=== PATIENT | male | born 1965 | race Caucasian/White ===

== ENCOUNTER 2019-02-06 | Emergency (ER) | payer BC, SELFPAY ==
[2019-02-06 00:01] VITALS: BP 168/100; PULSE 88; RESP 20; TEMP 36.8; O2SAT 96; BMI 31.0
[2019-02-06 00:47] VITALS: O2SAT 96
--- NOTE | 2019-02-06 00:58 | RAD_ITS ---
HISTORY: SOB EXAM: XR Chest 2 Views COMPARISON: 09/21/17 CXR FINDINGS: LINES/DEVICES: None. LUNGS: Radiographically clear. No consolidation, edema or effusion. No pneumothorax. Emphysematous changes are noted. MEDIASTINUM AND CARDIOVASCULAR STRUCTURES: Cardiac silhouette not enlarged. Central airways and mediastinal contour are unremarkable. BONES AND SOFT TISSUES: Unremarkable. RAD/Chest PA and Lateral IMPRESSION: COPD. No radiographic evidence of acute cardiopulmonary disease. at 0143 Reported and signed by: Mukund Browne MD Electronically Signed: Mukund Browne, at 1:42 EDT Tel , Service support ,
[2019-02-06 01:13] VITALS: PULSE 91; RESP 18; O2SAT 96
[2019-02-06] MEDS: Ipratropium/Albuterol Sulfate 3 ML AMPUL.NEB INHALATION (01:13)
--- NOTE | 2019-02-06 02:02 | ED.DCSUM_ITS ---
- ER Visit Summary Date of Service: 02/06/19 Chief Complaint: Shortness of breath History of Present Illness: The patient is a 53 M who presents with shortness of breath that has been constant for the past 2 weeks. Patient states he was seen in urgent care at that time and was diagnosed with bronchitis. Patient states he was given an inhaler which helps a little bit. Patient states he also has home aerosols which he has been taking with minimal relief. Patient states he feels tight in his chest. Patient states his breathing is worse at night. Patient admits to subjective fevers. Patient admits to a cough but denies any sputum. Physical Examination: Vital signs are stable. Patient is afebrile. Patient is in no acute distress. Oral mucosa is pink and moist. Neck is supple. Trachea is midline. There is no JVD noted. Heart was regular rate and rhythm. Lungs showed expiratory wheezing. There is good respiratory effort. There are no retractions noted. Abdomen is soft nontender. Cranial nerves II through XII are intact. There are no focal motor or sensory deficits noted. Test Results: PA and lateral chest x-rays obtained. There is evidence of COPD but no acute process. There is no infiltrate noted. Emergency Department Course and Treatment: Patient was given a DuoNeb aerosol here. Patient felt better on reevaluation. Patient was given a prescription for more albuterol nebulizer solution. Patient was also given a prescription for guaifenesin and dextromethorphan cough syrup. Patient was instructed to follow-up with his primary care physician in 3 to 5 days. Patient understood and was agreeable with the plan. All questions were answered. Disposition: Discharge home Impression: Acute bronchitis This note was generated with [email or web address] dictation software. It may contain incorrect words, spelling, and punctuation that were not noted in review of the chart prior to signing ED Disposition - Plan for ED Patient: Disposition: Home or Assisted Living Diagnosis: Acute bronchitis Instructions: ED Bronchitis Asthmatic Prescriptions: Albuterol Aerosols [Ventolin Aerosols] 2.5 mg INHALATION Q4H PRN #25 vial Guaifenesin/Dextromethorphan [Adult Robitussin Peak Cold Dm] 10 ml PO Q4H PRN PRN #1 bottle PRN Reason: Cough Referrals: Nick Lemons III, MD [Primary Care Provider] - 3-5 Days
[2019-02-06 02:27] VITALS: BP 143/93; PULSE 84; RESP 20; O2SAT 96
== END 2019-02-06 02:28 | disposition home or self-care (01) ==
PROVIDERS: Emergency Provider Emergency Medicine; Family Provider Family Medicine; PCP Family Medicine
DX: J20.9 Acute bronchitis, unspecified (principal); D86.9 Sarcoidosis, unspecified; I48.91 Unspecified atrial fibrillation; E03.9 Hypothyroidism, unspecified; R51 Headache; K21.9 Gastro-esophageal reflux disease without esophagitis; Z72.0 Tobacco use; Z79.899 Other long term (current) drug therapy
CPT/HCPCS: 71046; 94640; 99284; A4216

== ENCOUNTER 2020-04-15 10:29 | Emergency (ER) | payer BC, SELFPAY ==
[2020-04-15 10:31] VITALS: BP 169/93; PULSE 88; PULSE 91; RESP 16; RESP 20; TEMP 36.9; O2SAT 97; O2SAT 98; BMI 33.2
--- NOTE | 2020-04-15 10:43 | EKG12_ITS ---
Test Reason : Blood Pressure : / mmHG Vent. Rate : 088 BPM Atrial Rate : 088 BPM P-R Int : 152 ms QRS Dur : 086 ms QT Int : 358 ms P-R-T Axes : 036 010 013 degrees QTc Int : 433 ms Sinus rhythm with Premature supraventricular complexes and with occasional Premature ventricular comp lexes Otherwise normal ECG Confirmed by CHACORTA STALLWORTH, TAMIE ([id number]), scientific publications editor BONITA JEAN ([id number]) on 04/17/2020 1:09:59 PM Referred By: DISHA Confirmed By:TAMIE WHATLEY MD
--- NOTE | 2020-04-15 10:46 | ED.VIS.GEN ---
History of Present Illness Chief Complaint: Palpitations Informant: Patient Narrative: 54-year-old male with past medical history of hypertension presents with concern for palpitations. States that last weekend he was resting at home when he began having intermittent palpitations throughout the day. States that these resolved and throughout the week he was working at home around the house and in the yard. States he was doing very strenuous work. States that 2 days ago he began having the palpitations again does have an intermittent sharp chest pain. States it is nonradiating and resides over his left chest. Denies any shortness of breath, nausea, vomiting, diaphoresis. Patient states that he did have an ablation years ago for atrial fibrillation. Is not currently on blood thinning medication. Patient is a current smoker but denies any drugs or alcohol. Past Medical History - Allergies and Home Meds Allergies/Adverse Reactions: Allergies fluoxetine [From Prozac] Adverse Reaction (Verified 04/15/20 10:29) Other Primary Care Physician: Nick Lemons III, MD [Primary Care Provider] - Prior records reviewed: Yes Past Medical History: - - Hypertension Surgical History: - - Atrial ablation Lives: Spouse/ Significant Other Smoking Status: Current every day smoker Alcohol: None Drugs: None Review of Systems General: Denies: Chills, Fever, Sweats Eyes: Denies: Visual changes - bilaterally, Diplopia ENT: Denies: Rhinorrhea, Sore throat Cardiovascular: Reports: Chest pain, Palpitations Respiratory: Denies: Dyspnea, Cough, Dyspnea on exertion Gastrointestinal: Denies: Abdominal pain, Nausea, Vomiting, Diarrhea, Melena, Hematochezia Genitourinary: Denies: Dysuria, Hematuria, Frequency Musculoskeletal: Denies: Back pain, Extremity Pain Skin: Denies: Rash, Wounds Neurological: Denies: Headache, Weakness, Numbness Physical Exam Vital Signs/Narrative: Vital Signs Temp Pulse Resp BP Pulse Ox 04/15/20 10:31 98.4 F 91 16 169/93 H 97 Inital Vital Signs reviewed: Yes General: Well nourished, Well developed, No Acute Distress Head: Normocephalic, Atraumatic Eyes: Perrl, EOMI ENT: Moist mucous membranes, No rhinorrhea Neck: Supple, Nontender Cardiovascular: Regular rate, Regular rhythm, No murmurs Respiratory: No distress, CTA bilaterally, Chest nontender Abdomen: Soft, Nontender, Nondistended, Normal bowel sounds Back: Nontender, Normal Inspection Extremities: Nontender, No edema Skin: Normal color, No rash Neurological: Alert, Oriented x3, Cranial nerves II-XII grossly intact, Normal Strength, Normal Sensation Psychological: Normal affect, Normal Mood Diagnostic/Tx/Re-eval Clinical Impression(s) from Imaging Studies Chest X-Ray 04/15/20 11:10 IMPRESSION: No focal patchy airspace opacities or effusions Minimal apical capping Electronically Signed: Lyle Ca, at 11:52 EDT Tel , Service support , Laboratory Data 04/15/20 04/15/20 10:33 10:33 WBC 9.3 RBC 4.59 L Hgb 14.6 Hct 42.3 MCV 92.2 MCH 31.8 MCHC 34.5 RDW Std Deviation 40.6 RDW Coeff of Marla 12.0 Plt Count 301 MPV 9.9 Immature Gran % (Auto) 0.200 Neut % (Auto) 68.2 Lymph % (Auto) 23.7 Carlton % (Auto) 6.1 Eos % (Auto) 1.5 Baso % (Auto) 0.3 Absolute Neuts (auto) 6.3 Absolute Lymphs (auto) 2.21 Nucleated RBC % 0 Sodium 139 Potassium 3.9 Chloride 108 H Carbon Dioxide 27.0 Anion Gap 4 L BUN 13 Creatinine 1.01 Estim Creat Clear Calc 84.58 Est GFR (MDRD) Af Amer 99 Est GFR (MDRD) Non-Af 82 BUN/Creatinine Ratio 12.9 Glucose 121 H Calcium 8.8 Magnesium 2.3 Troponin I < 0.015 TSH 0.06 L - Rhythm Strip Rhythm Strip: Sinus Rhythm Rate: 88 Ectopy: PVC(s), PAC(s) - EKG Initial EKG Interpretation: Sinus Rhythm - Normal sinus rhythm at 88 bpm. NM interval of 152 ms. QTC of 433 ms. Evidence of PVCs and PACs. - Medical Decision Making Patient appears well nontoxic. Vital signs within normal limits. PVCs with 1 PAC on EKG. Troponin negative. TSH low. Patient is currently on Synthroid which is likely the cause of his current hyperthyroidism. This is likely also the cause of his palpitations. Patient was advised to decrease his Synthroid by half and follow-up with his primary care provider Dr. Lemons in the next 48 hours. I will speak with his primary care provider to ensure follow-up. Patient asked to return for any new or worsening symptoms. Patient agreeable and discharged home in stable condition. ED Disposition - Plan for ED Patient: Disposition: Home or Assisted Living Diagnosis: Hyperthyroidism Instructions: Premature Ventricular Contractions Referrals: Nick Lemons III, MD [Primary Care Provider] - Additional Instructions: Please reduce your Synthroid by half. Return for any worsening chest pain or shortness of breath.
[2020-04-15 11:03] LABS: Absolute Lymphocyte Count 2.21 X10^3/uL (0.83-4.51); Absolute Neutrophil Count 6.3 X10^3/uL (2.0-7.7); Basophil# 0.03 X10^3/uL; Basophil% 0.3 % (0-1); Eosinophil# 0.14 X10^3/uL; Eosinophils% 1.5 % (0-5); Hematocrit 42.3 % (40-54); Hemoglobin 14.6 g/dL (13.0-16.5); Lymphocyte # 2.21 X10^3/ul (4.0); Lymphocyte % 23.7 % (19-41); Mean Corp Hgb Conc 34.5 g/dL (32-36); Mean Corpuscular Hgb 31.8 pg (27.0-32.0); Mean Corpuscular Volume 92.2 fL (80-94); Mean Platelet Vol. 9.9 fl (6.2-12.0); Monocyte# 0.57 X10^3/uL; Monocyte% 6.1 % (0-10); NRBC Flagged by Analyzer 0 % (0-5); Neutrophil # 6.34 X10^3/uL (2.7-7.7); Neutrophil % 68.2 % (47-70); Platelet Count 301 K/mm3 (150-450); RBC Distribution Width SD 40.6 fl (35.1-43.9); Red Blood Count 4.59 M/mm3 (4.6-6.2); White Blood Count 9.3 K/mm3 (4.4-11.0)
--- NOTE | 2020-04-15 11:10 | RAD_ITS ---
STUDY: X-RAY CHEST REASON FOR EXAM: Male, 54 years old. chest pain with palpitations. hx of cardiac ablation TECHNIQUE: Single AP portable view of the chest. COMPARISON: February 06, 2019. FINDINGS: Cardiac silhouette unremarkable. Pulmonary vascularity unremarkable. Aorta unremarkable. No focal patchy airspace opacities. No pleural effusions. Minimal apical capping. Upper abdomen unremarkable. Osseous structures intact. No pneumothorax. RAD/Chest 1 View (Portable) IMPRESSION: No focal patchy airspace opacities or effusions Minimal apical capping Electronically Signed: Lyle Ca DO at 11:52 EDT Tel , Service support ,
[2020-04-15 11:35] LABS: Anion Gap 4 (5-15); BUN 13 mg/dL (7-18); BUN/Creat Ratio 12.9 RATIO (10-20); Calcium,Total 8.8 mg/dL (8.5-10.1); Chloride 108 mmol/L (98-107); Creatinine, Serum 1.01 mg/dL (0.70-1.30); EST Glomerular Filtration Rate 82 mL/min (>60); Est Glom Filt Rate - Afr Amer 99 mL/min (>60); Estimated Creatinine Clearance 84.58 ml/min; Glucose 121 mg/dL (74-106); Magnesium 2.3 mg/dL (1.6-2.6); Potassium 3.9 mmol/L (3.5-5.1); Sodium Level 139 mmol/L (136-145); Thyroid Stim Hormone (TSH) 0.06 uIU/mL (0.358-3.74)
[2020-04-15] MEDS: Aspirin 81 MG TAB.CHEW 324 MG PO (11:37)
[2020-04-15 12:49] VITALS: BP 148/77; PULSE 82; RESP 14; O2SAT 97
== END 2020-04-15 12:50 | disposition home or self-care (01) ==
PROVIDERS: Emergency Provider Emergency Medicine; PCP Family Medicine
DX: E05.90 Thyrotoxicosis, unspecified without thyrotoxic crisis or storm (principal); I49.3 Ventricular premature depolarization; I10 Essential (primary) hypertension; F17.200 Nicotine dependence, unspecified, uncomplicated; Z79.890 Hormone replacement therapy; Z79.899 Other long term (current) drug therapy
CPT/HCPCS: 71045; 80048; 83735; 84443; 84484; 85025; 93005; 99285; A4216

== ENCOUNTER 2021-03-19 11:26 | Emergency (ER) | payer BC, SELFPAY ==
[2021-03-19] VITALS (7 sets, daily range): BP systolic 117–158; BP diastolic 68–83; PULSE 63–78; RESP 15–19; TEMP 36.4; O2SAT 95–98; BMI 31.5
--- NOTE | 2021-03-19 11:34 | EKG12_ITS ---
Test Reason : CP Blood Pressure : / mmHG Vent. Rate : 074 BPM Atrial Rate : 074 BPM P-R Int : 160 ms QRS Dur : 078 ms QT Int : 372 ms P-R-T Axes : 052 024 027 degrees QTc Int : 412 ms Normal sinus rhythm Normal ECG Confirmed by VIJI STALLWORTH, BASILIO ([id number]), editor school photograph BONITA JEAN ([id number]) on 03/21/2021 10:42:53 A M Referred By: Confirmed By:LAURA HALLMAN MD
--- NOTE | 2021-03-19 11:45 | EDS_ITS ---
HPI History of Present Illness Chief Complaint: Chest Pain Informant: patient Onset/Context/Timing Onset: Days Activity at onset: gradual Timing: Continuous Quality: Positive for Dull Location: Left Parasternal Current Severity: Mild Maximum Severity: Mild Worsened By: Movement of Arm Relieved By: Nothing Associated Symptoms: Negative for Nausea, Vomiting, Diaphoresis, Dyspnea and Cough Narrative Narrative: 55-year-old male history of sarcoidosis prior A. fib with cardiac ablation and prior kidney stones. Is never had a DVT or PE. He has no known history of coronary disease no prior stents and is on no blood thinners. Denies any recent travel surgery or immobilization. Said Wednesday morning he awoke with but not because of left-sided chest discomfort he describes it as an achiness. Worse with movement. He denies any fever chills or cough. No hemoptysis. Prior Similar Symptoms: No Recent Illness/Hospitalization: No PE Risk Factors: Negative for Recent Travel/Surgery, Recent Immobilization, Prior DVT or PE, Cancer and OCP + Smoking + >/=35 TAD Risk Factors: Negative for Marfan's Syndrome, Hypertension and Family History [facility] Medical History (Updated 03/19/21 @ 15:[address] Shaun Hartmann MD) High cholesterol HTN (hypertension) Hypothyroid Home Medications levothyroxine 137 mcg PO DAILY 08/10/14 [History Last Taken Unknown] pravastatin 20 mg PO QHS 08/10/14 [History Last Taken Unknown] albuterol sulfate 1 - 2 puff INHALATION Q4H PRN PRN #1 inhaler 09/21/17 [Rx Last Taken Unknown] albuterol sulfate 2.5 mg INHALATION Q4H PRN #25 vial 02/06/19 [Rx Last Taken Unknown] budesonide-formoterol 1 - 2 puff INHALATION BID PRN 04/15/20 [History Last Taken Unknown] lisinopril 5 mg PO DAILY 04/15/20 [History Last Taken Unknown] Allergy/AdvReac Type Severity Reaction Status Date / Time fluoxetine [From Prozac] AdvReac Other Verified 03/19/21 11:28 Social History Smoking Status: Current every day smoker tobacco type: cigarettes ROS ROS ED ROS Narrative Patient denies any recent illness. Review of Systems ROS Unobtainable: Denies due to encephalopathy or due to endotracheal tube Constitutional Constitutional ED: Denies chills or fever(s) Eyes Eyes: Denies none ENT ENT ED: Denies ear pain or sore throat Cardiovascular Cardiovascular: Reports as per HPI and chest pain; Denies palpitations or racing heartbeat Respiratory/Chest Respiratory/Chest: Denies cough, dyspnea or sputum Gastrointestinal Gastrointestinal: Denies abdominal pain, diarrhea, nausea or vomiting Genitourinary Genitourinary ED: Denies dysuria or hematuria Musculoskeletal Musculoskeletal: Denies myalgias Integumentary Denies rash Neurologic Neurologic: Denies headache(s) Psychiatric Psychiatric: Denies depression Endocrine Endocrinology: Denies polyuria Hematologic/Lymphatic Hematologic/Lymphatic: Denies easy bruising Allergic/Immunologic Allergic/Immunologic ED: Denies urticaria EXAM Physical Exam Narrative Exam Narrative: Middle-age male no acute distress. Exam unremarkable. Lungs are clear. Heart regular rate and rhythm no murmur. Chest wall nontender. Abdomen soft nontender. Legs unremarkable. No edema or cords. Calves are nontender. Otherwise exam unremarkable. Const Vital Signs: 03/19/21 11:27 03/19/21 11:55 03/19/21 12:26 Temperature 97.5 F L Temperature Source Temporal Pulse Rate 78 66 Respiratory Rate 16 19 H Respiratory Effort Normal Non-Labored Blood Pressure 158/83 H 134/73 H Blood Pressure Mean 108 93 Pulse Ox 98 95 96 Oxygen Delivery Method Room Air Room Air Room Air 03/19/21 13:00 03/19/21 14:00 03/19/21 15:00 Temperature Temperature Source Pulse Rate 63 69 69 Respiratory Rate 19 H 16 19 H Respiratory Effort Blood Pressure 126/80 H 117/68 120/77 Blood Pressure Mean 95 84 91 Pulse Ox 95 98 97 Oxygen Delivery Method Room Air Room Air Room Air Positive well nourished and well developed General Appearance ED: well developed HEENT Reports moist mucous membranes normocephalic and atraumatic; Negative for trauma or tenderness Eyes PERRL and EOMs intact bilaterally Neck no lymphadenopathy, supple and no JVD General: Negative for tenderness Chest Wall inspection of chest normal and palpation of chest normal Resp normal respiratory effort and clear to auscultation bilaterally Effort and Inspection: respiratory distress Cardio regular rate, regular rhythm and no murmurs GI normal to inspection, nondistended, normoactive bowel sounds, soft to palpation, non-tender, non-distended and no masses Back/Spine no CVA tenderness and no thoracic nor lumbar tenderness General Back: Negative for CVA tenderness Cervical Spine: cervical spine tenderness Extremity normal to inspection General Extremety ED: Negative for edema or tenderness General Extremity: Negative for edema Neuro oriented x3 and CN's II-XII intact bilaterally Sensorium / Orientation: awake, alert, oriented to person, oriented to place and oriented to time Motor Exam: strength 5/5 throughout Psych mental status grossly normal Skin no rashes or lesions noted and no wounds Heart Score History: Slightly/Non-Suspicious ECG: Normal Age: >45 - <65 years Risk Factors: 1 or 2 Risk Factors Troponin: </= Normal Limit Score: 2 MDM MDM MDM Narrative Medical decision making narrative: Middle-age male with 3-day history of atypical, nonreproducible left-sided chest discomfort. Exam is unremarkable. No risk factors for DVT or PE no prior history. No strong cardiac risk factors other than his age and his smoking history. He will undergo cardiac work-up. Repeat exam patient is doing well at 3:30 PM. He has no reproducible pain. Is not exertional. He has no risk factors for either DVT or PE. Nor any history. Patient does not want to be admitted. He had a stress test that was -8 years ago. It was a nuclear stress test. He wants to follow-up as an outpatient. He knows to return if he is feeling worse. Lab Data Attestation: I reviewed the patient's lab results. Lab results narrative: CBC normal white count 10. Hemoglobin 14. Electrolytes normal. Normal cardiac enzymes. Normal creatinine. Chest x-ray 1 view interpreted both by myself and the radiologist shows no acute abnormality. Normal cardiac silhouette. Troponin normal. Labs: Laboratory Results - last 24 hr 03/19/21 03/19/21 11:47 11:47 WBC 10.2 RBC 4.54 L Hgb 14.5 Hct 41.2 MCV 90.7 MCH 31.9 MCHC 35.2 RDW Std Deviation 39.5 RDW Coeff of Marla 11.9 Plt Count 270 MPV 9.4 Immature Gran % (Auto) 0.200 Neut % (Auto) 65.8 Lymph % (Auto) 24.9 Mccone % (Auto) 7.2 Eos % (Auto) 1.5 Baso % (Auto) 0.4 Absolute Neuts (auto) 6.7 Absolute Lymphs (auto) 2.54 Nucleated RBC % 0 Sodium 139 Potassium 3.6 Chloride 107 Carbon Dioxide 29.0 Anion Gap 3 L BUN 14 Creatinine 1.01 Estim Creat Clear Calc 86.33 Est GFR (MDRD) Af Amer 99 Est GFR (MDRD) Non-Af 82 BUN/Creatinine Ratio 13.9 Glucose 96 Calcium 9.2 Troponin I < 0.015 Radiography Chest X-Ray - ED: Read by ED Physician, Read by Radiologist, Normal, Heart, Lungs, Mediastinum, Bony Structures and No Acute Disease Diagnostic Testing: Radiology Impression Chest X-Ray 03/19/21 11:55 IMPRESSION: Normal x-ray examination of the chest. Electronically Signed: Kurtis Lan MD at 12:24 EDT , Service support , EKG Initial EKG: Attestation: I personally reviewed and interpreted this EKG as follows: Interpretation: Sinus Rhythm Comments: Normal sinus rhythm rate of 74 unchanged from prior EKG from April of last year. No acute signs of MO nor ischemia.. Prior EKG tracings: available for review Prior: Unchanged Discharge Plan Triage Chief Complaint: Chest Pain ED Provider: Shaun Hartmann Dx/Rx/DC Orders Clinical Impression: Chest pain of uncertain etiology Instructions: ED Chest Pain, Uncertain Cause Prescriptions: No Action pravastatin 40 MG tablet 20 mg PO QHS RF: 0 levothyroxine 75 MCG tablet 137 mcg PO DAILY RF: 0 albuterol sulfate 1 INHALER inhaler 1 - 2 puff INHALATION Q4H PRN PRN (Reason: Wheezing) Qty: 1 RF: 0 albuterol sulfate 2.5 MG/3 ML solution for nebulization 2.5 mg inhalation Q4H PRN Qty: 25 RF: 0 lisinopril 5 MG tablet 5 mg PO DAILY RF: 0 budesonide-formoterol 160-4.5 mcg/actuation HFA aerosol inhaler 1 - 2 puff inhalation BID PRN (Reason: Sob &/Or Wheezing) RF: 0 Primary Care Provider: Nick Lemons III Referrals: Nick Lemons III, MD [Primary Care Provider] - Sj Bojorquez MD [STAFF PHYSICIAN] - As soon as possible Activity Restrictions/Additional Instructions: Call and follow-up with Dr. Sj Bojorquez for further evaluation. You and he can discuss potentially outpatient stress test. All your tests today were unremarkable. We do not have a specific cause for your pain. Return to emergency room if you are feeling worse such as increasing chest pain or shortness of breath. Otherwise Tylenol or Motrin for pain. Disposition Disposition: Home, self care
[2021-03-19] MEDS: Aspirin 81 MG TAB.CHEW 324 MG PO (11:46)
[2021-03-19 11:53] LABS: Absolute Lymphocyte Count 2.54 X10^3/uL (0.83-4.51); Absolute Neutrophil Count 6.7 X10^3/uL (2.0-7.7); Basophil# 0.04 X10^3/uL; Basophil% 0.4 % (0-1); Eosinophil# 0.15 X10^3/uL; Eosinophils% 1.5 % (0-5); Hematocrit 41.2 % (40-54); Hemoglobin 14.5 g/dL (13.0-16.5); Lymphocyte # 2.54 X10^3/ul (0.83-4.51); Lymphocyte % 24.9 % (19-41); Mean Corp Hgb Conc 35.2 g/dL (32-36); Mean Corpuscular Hgb 31.9 pg (27.0-32.0); Mean Corpuscular Volume 90.7 fL (80-94); Mean Platelet Vol. 9.4 fl (6.2-12.0); Monocyte# 0.73 X10^3/uL; Monocyte% 7.2 % (0-10); NRBC Flagged by Analyzer 0 % (0-5); Neutrophil # 6.71 X10^3/uL (2.7-7.7); Neutrophil % 65.8 % (47-70); Platelet Count 270 K/mm3 (150-450); RBC Distribution Width CV 11.9 % (11.6-14.6); RBC Distribution Width SD 39.5 fl (35.1-43.9); Red Blood Count 4.54 M/mm3 (4.6-6.2); White Blood Count 10.2 K/mm3 (4.4-11.0)
--- NOTE | 2021-03-19 11:55 | RAD_ITS ---
STUDY: X-RAY CHEST REASON FOR EXAM: Male, 55 years old. Chest pain TECHNIQUE: Single AP portable view of the chest. COMPARISON: Comparison is made with prior study dated 04/15/2020. FINDINGS: EKG electrodes are seen. The lungs are clear and expanded. There is no demonstrated pleural abnormality. Normal size heart. Normal mediastinum and mariam. Normal visualized pulmonary arteries. Normal visualized aortic arch and descending thoracic aorta. Normal visualized thoracic spine. Normal visualized ribs, clavicles, and shoulders. There is no demonstrated abnormality of the visualized soft tissue structures of the upper abdomen. RAD/Chest 1 View (Portable) IMPRESSION: Normal x-ray examination of the chest. Electronically Signed: Kurtis Lan MD at 12:24 EDT , Service support ,
[2021-03-19 12:14] LABS: Anion Gap 3 (5-15); BUN 14 mg/dL (7-18); BUN/Creat Ratio 13.9 RATIO (10-20); Calcium,Total 9.2 mg/dL (8.5-10.1); Chloride 107 mmol/L (98-107); Creatinine, Serum 1.01 mg/dL (0.70-1.30); EST Glomerular Filtration Rate 82 mL/min (>60); Est Glom Filt Rate - Afr Amer 99 mL/min (>60); Estimated Creatinine Clearance 86.33 ml/min; Glucose 96 mg/dL (74-106); Potassium 3.6 mmol/L (3.5-5.1); Sodium Level 139 mmol/L (136-145)
== END 2021-03-19 15:37 | disposition home or self-care (01) ==
PROVIDERS: Emergency Provider Emergency Medicine; PCP Family Medicine
DX: R07.9 Chest pain, unspecified (principal); I48.91 Unspecified atrial fibrillation; I10 Essential (primary) hypertension; E03.9 Hypothyroidism, unspecified; E78.00 Pure hypercholesterolemia, unspecified; F17.210 Nicotine dependence, cigarettes, uncomplicated; Z79.899 Other long term (current) drug therapy; Z87.442 Personal history of urinary calculi
CPT/HCPCS: 71045; 80048; 84484; 85025; 93005; 99284; A4216

== ENCOUNTER 2021-12-01 11:19 | Emergency (ER) | payer BC, SELFPAY ==
[2021-12-01 11:20] VITALS: BP 162/77; PULSE 91; RESP 16; TEMP 36.3; O2SAT 99; BMI 31.0
--- NOTE | 2021-12-01 11:41 | ED.VIS.CHEST ---
HPI History of Present Illness Chief Complaint: Chest Pain Informant: patient Onset/Context/Timing Onset: Days (3) Timing: Continuous Quality: Positive for Sharp Location: Left Chest Worsened By: Movement of Arm, Palpation, Breathing and Coughing Relieved By: Rest Associated Symptoms: Positive for Acid Reflux; Negative for Nausea, Vomiting, Diaphoresis, Dyspnea, Cough, Fever, Lightheadedness and Palpitations Narrative Narrative: Patient presents with left upper chest pain that has been constant for the past 3 days. Patient states his pain is sharp. Patient states pain is over the left chest. Patient states it is worse with coughing, sneezing, and movement of his left arm. Patient states it is better with rest. Patient denies any nausea or vomiting. Patient states he did have some heartburn when this began. Patient denies any shortness of breath or cough. Patient denies any fevers or chills. Patient denies any palpitations. CVD Risk Factors: Positive for Hypertension, Hypercholesterolemia, Family History 1' </=55 and Smoking; Negative for Diabetes PE Risk Factors: Negative for Recent Travel/Surgery, Prior DVT or PE, Cancer and OCP + Smoking + >/=35 PFSH PFSH Medical History Atrial fibrillation High cholesterol HTN (hypertension) Hypothyroid Sarcoidosis Home Medications levothyroxine 137 mcg PO DAILY 08/10/14 [History Last Taken Unknown] pravastatin 20 mg PO QHS 08/10/14 [History Last Taken Unknown] albuterol sulfate 1 - 2 puff INHALATION Q4H PRN PRN #1 inhaler 09/21/17 [Rx Last Taken Unknown] budesonide-formoterol 1 - 2 puff INHALATION BID PRN 04/15/20 [History Last Taken Unknown] lisinopril 5 mg PO DAILY 04/15/20 [History Last Taken Unknown] Allergy/AdvReac Type Severity Reaction Status Date / Time fluoxetine [From Prozac] AdvReac Other Verified 12/01/21 11:21 Surgical History History of cardiac radiofrequency ablation Hx of hernia repair Social History Smoking Status: Current every day smoker tobacco type: cigarettes and smokeless tobacco ROS ROS ED Constitutional Constitutional ED: Denies chills or fever(s) Eyes Eyes: Denies blurry vision or change in vision ENT ENT ED: Denies rhinorrhea or sore throat Cardiovascular Cardiovascular: Reports chest pain; Denies palpitations Respiratory/Chest Respiratory/Chest: Denies cough or dyspnea Gastrointestinal Gastrointestinal: Denies abdominal pain, nausea or vomiting Genitourinary Genitourinary ED: Denies dysuria or hematuria Musculoskeletal Musculoskeletal: Denies back pain or neck pain Integumentary Denies abscess or rash Neurologic Neurologic: Denies headache(s) or weakness Allergic/Immunologic Allergic/Immunologic ED: Denies mouth swelling or urticaria EXAM Physical Exam Const Vital Signs: 12/01/21 11:20 12/01/21 11:33 12/01/21 11:56 Temperature 97.4 F L Temperature Source Temporal Pulse Rate 91 Respiratory Rate 16 Respiratory Effort Normal Non-Labored Respiratory Pattern Normal Blood Pressure 162/77 H Blood Pressure Mean 105 Pulse Ox 99 Oxygen Delivery Method Room Air Room Air 12/01/21 12:19 12/01/21 13:07 12/01/21 14:23 Temperature Temperature Source Pulse Rate 73 72 Respiratory Rate 18 16 Respiratory Effort Respiratory Pattern Blood Pressure 135/84 H 139/80 H 141/80 H Blood Pressure Mean 101 99 100 Pulse Ox 97 96 98 Oxygen Delivery Method Room Air Room Air 12/01/21 15:01 Temperature Temperature Source Pulse Rate 70 Respiratory Rate 17 Respiratory Effort Respiratory Pattern Blood Pressure 150/88 H Blood Pressure Mean 108 Pulse Ox 98 Oxygen Delivery Method Room Air Positive well nourished and well developed General Appearance ED: well developed and NAD HEENT normocephalic and atraumatic Eyes PERRL and EOMs intact bilaterally Neck supple and no JVD Chest Wall palpation of chest normal Resp normal respiratory effort and clear to auscultation bilaterally Effort and Inspection: Negative for respiratory distress Cardio regular rate, regular rhythm and no murmurs GI normal to inspection, nondistended, normoactive bowel sounds, soft to palpation, non-tender and non-distended Extremity normal to inspection General Extremety ED: Negative for edema or tenderness General Extremity: Negative for edema Neuro oriented x3, CN's II-XII intact bilaterally and no sensory deficits noted Sensorium / Orientation: awake and alert Motor Exam: strength 5/5 throughout Psych mental status grossly normal Heart Score History: Slightly/Non-Suspicious ECG: Normal Age: >45 - <65 years Risk Factors: >/= 3 Risk Factors or History of CAD Troponin: </= Normal Limit Score: 3 MDM MDM MDM Narrative Medical decision making narrative: EKG was obtained. On my interpretation, it showed a normal sinus rhythm with a rate of 82. SD interval, QRS interval, and QTc intervals were all normal. [place] was normal. There are no acute ST or T wave changes. Portable 1 view chest x-ray was obtained. On my interpretation, lung warren are clear. There is normal cardiac silhouette. Bony thorax is normal. There is no acute process noted. Radiologist also interpreted the x-ray and agrees. CBC shows a mild leukocytosis of 12.5. Basic metabolic profile was within normal limits. Initial high-sensitivity troponin was normal at 5. 2-hour repeat high-sensitivity troponin was normal at 4. Patient has a HEART score of 3. Patient was advised that this is low risk for acute cardiac event. Patient was instructed to use ice to the area. Patient was instructed to take Tylenol or ibuprofen as needed for pain. Patient was instructed to follow-up with his primary care physician in 5 to 7 days. Patient understood and was agreeable with the plan. All questions were answered. Lab Data Attestation: I reviewed the patient's lab results. Labs: Laboratory Results - last 24 hr 12/01/21 12/01/21 12/01/21 11:27 11:27 14:30 WBC 12.5 H RBC 4.76 Hgb 15.7 Hct 43.1 MCV 90.5 MCH 33.0 H MCHC 36.4 H RDW Std Deviation 39.5 RDW Coeff of Marla 11.9 Plt Count 274 MPV 9.8 Immature Gran % (Auto) 0.200 Neut % (Auto) 70.6 H Lymph % (Auto) 21.9 [place] % (Auto) 6.4 Eos % (Auto) 0.6 Baso % (Auto) 0.3 Absolute Neuts (auto) 8.8 H Absolute Lymphs (auto) 2.75 Nucleated RBC % 0 Sodium 140 Potassium 3.7 Chloride 107 Carbon Dioxide 27.0 Anion Gap 6 BUN 16 Creatinine 1.03 Estim Creat Clear Calc 81.03 Est GFR (MDRD) Af Amer 96 Est GFR (MDRD) Non-Af 80 BUN/Creatinine Ratio 15.5 Glucose 107 H Calcium 9.8 Troponin I High Sens 5 4 Radiography Chest X-Ray - ED: 1 View, Read by ED Physician, Read by Radiologist and No Acute Disease Diagnostic Testing: Clinical Impression(s) from Imaging Studies Chest X-Ray 12/01/21 11:45 IMPRESSION: Hyperinflation. The lungs are clear. Electronically Signed: Kurtis Lan MD at 12:45 EST , EKG Initial EKG: Attestation: I personally reviewed and interpreted this EKG as follows: Interpretation: Sinus Rhythm (82) and No Acute Injury Pattern Discharge Plan Triage Chief Complaint: Chest Pain ED Provider: Lyle Curtis Dx/Rx/DC Orders Clinical Impression: Chest pain of uncertain etiology Instructions: ED Chest Pain, Uncertain Cause Prescriptions: No Action pravastatin 40 MG tablet 20 mg PO QHS RF: 0 levothyroxine 75 MCG tablet 137 mcg PO DAILY RF: 0 albuterol sulfate 1 INHALER inhaler 1 - 2 puff INHALATION Q4H PRN PRN (Reason: Wheezing) Qty: 1 RF: 0 lisinopril 5 MG tablet 5 mg PO DAILY RF: 0 budesonide-formoterol 160-4.5 mcg/actuation HFA aerosol inhaler 1 - 2 puff inhalation BID PRN (Reason: Sob &/Or Wheezing) RF: 0 Primary Care Provider: Care Physician,No Primary Referrals: Care Physician,No Primary [Primary Care Provider] - Doctor,Your [STAFF PHYSICIAN] - 5-7 Days Disposition Disposition: Home, Self Care
--- NOTE | 2021-12-01 11:45 | EKG12_ITS ---
Test Reason : CP Blood Pressure : / mmHG Vent. Rate : 082 BPM Atrial Rate : 082 BPM P-R Int : 140 ms QRS Dur : 080 ms QT Int : 360 ms P-R-T Axes : -40 010 010 degrees QTc Int : 420 ms Unusual P axis, possible ectopic atrial rhythm Abnormal ECG Confirmed by SAYRA STALLWORTH, NGUYEN ([id number]), associate entertainment editor BONITA JEAN ([id number]) on 12/04/2021 1:25:59 PM Referred By: VANESSA/VIDYA Confirmed By:NGUYEN COLBERT MD
--- NOTE | 2021-12-01 11:45 | RAD_ITS ---
STUDY: X-RAY CHEST REASON FOR EXAM: Male, 56 years old. Chest pain TECHNIQUE: Single AP portable view of the chest. COMPARISON: None. FINDINGS: EKG electrodes are seen. Hyperinflation. The lungs are clear. There is no demonstrated pleural abnormality. Normal size heart. Normal mediastinum and mariam. Normal visualized pulmonary arteries. Normal visualized aortic arch and descending thoracic aorta. Normal visualized thoracic spine. Normal visualized ribs, clavicles, and shoulders. There is no demonstrated abnormality of the visualized soft tissue structures of the upper abdomen. RAD/Chest 1 View (Portable) IMPRESSION: Hyperinflation. The lungs are clear. Electronically Signed: Kurtis Lan MD at 12:45 EST ,
[2021-12-01 11:59] LABS: Absolute Lymphocyte Count 2.75 X10^3/uL (0.83-4.51); Absolute Neutrophil Count 8.8 X10^3/uL (2.0-7.7); Basophil# 0.04 X10^3/uL; Basophil% 0.3 % (0-1); Eosinophil# 0.08 X10^3/uL; Eosinophils% 0.6 % (0-5); Hematocrit 43.1 % (40-54); Hemoglobin 15.7 g/dL (13.0-16.5); Lymphocyte # 2.75 X10^3/ul (0.83-4.51); Lymphocyte % 21.9 % (19-41); Mean Corp Hgb Conc 36.4 g/dL (32-36); Mean Corpuscular Volume 90.5 fL (80-94); Mean Platelet Vol. 9.8 fl (6.2-12.0); Monocyte% 6.4 % (0-10); NRBC Flagged by Analyzer 0 % (0-5); Neutrophil # 8.84 X10^3/uL (2.7-7.7); Neutrophil % 70.6 % (47-70); Platelet Count 274 K/mm3 (150-450); RBC Distribution Width CV 11.9 % (11.6-14.6); RBC Distribution Width SD 39.5 fl (35.1-43.9); Red Blood Count 4.76 M/mm3 (4.6-6.2); White Blood Count 12.5 K/mm3 (4.4-11.0)
[2021-12-01 12:07] LABS: Anion Gap 6 (5-15); BUN 16 mg/dL (7-18); BUN/Creat Ratio 15.5 RATIO (10-20); Calcium,Total 9.8 mg/dL (8.5-10.1); Chloride 107 mmol/L (98-107); Creatinine, Serum 1.03 mg/dL (0.70-1.30); EST Glomerular Filtration Rate 80 mL/min (>60); Est Glom Filt Rate - Afr Amer 96 mL/min (>60); Estimated Creatinine Clearance 81.03 ml/min; Glucose 107 mg/dL (74-106); Potassium 3.7 mmol/L (3.5-5.1); Sodium Level 140 mmol/L (136-145); Troponin-I HS 5 pg/mL (3.0-78.0)
[2021-12-01] MEDS: Aspirin 81 MG TAB.CHEW 324 MG PO (12:08)
[2021-12-01 12:19] VITALS: BP 135/84; PULSE 73; RESP 18; O2SAT 97
[2021-12-01 13:07] VITALS: BP 139/80; O2SAT 96
[2021-12-01 14:23] VITALS: BP 141/80; PULSE 72; RESP 16; O2SAT 98
[2021-12-01 14:53] LABS: Troponin-I HS 4 pg/mL (3.0-78.0)
[2021-12-01 15:01] VITALS: BP 150/88; PULSE 70; RESP 17; O2SAT 98
[2021-12-01 15:15] VITALS: BP 150/88; PULSE 72; RESP 17; O2SAT 97
== END 2021-12-01 15:21 | disposition home or self-care (01) ==
PROVIDERS: Emergency Provider Emergency Medicine; Visit Provider Emergency Medicine
DX: R07.9 Chest pain, unspecified (principal); I48.91 Unspecified atrial fibrillation; I10 Essential (primary) hypertension; F17.210 Nicotine dependence, cigarettes, uncomplicated; E78.00 Pure hypercholesterolemia, unspecified; E03.9 Hypothyroidism, unspecified; D86.9 Sarcoidosis, unspecified; Z79.899 Other long term (current) drug therapy
CPT/HCPCS: 71045; 80048; 84484; 85025; 93005; 99284; A4216

== ENCOUNTER → 2023-04-26 | Outpatient (CLI) | payer BC, SELFPAY ==
--- NOTE | 2023-04-26 11:17 | STRESSREP ---
Stress Test Report Date: 04/26/2023 Procedure: Exercise tolerance test/imaging study Indications: Chest pain Consent: Per the patient Procedure: The patient exercised on a Joo protocol for 9 minutes and 30 seconds achieving a peak heart rate of 150 bpm (91% predicted maximal heart rate) with a peak blood pressure 170/70 mmHg and a peak MET capacity of 11.6 METs. The baseline ECG demonstrated normal sinus rhythm. The peak exercise ECG demonstrated no ischemic changes. There were no cardiac dysrhythmias pretest, during exercise, or recovery. The functional capacity was considered good. There was no complaint of chest discomfort during exercise or recovery. The examination was discontinued secondary to target heart rate being achieved. The patient was injected with 11.8 mCi of technetium 99m Cardiolite and subsequently rest SPECT Cardiolite nuclear imaging was obtained in the horizontal long, vertical long, and short axis views. Post-exercise, the patient was injected with 34.1 mCi of technetium 99m Cardiolite and subsequently stress SPECT Cardiolite nuclear imaging was obtained in the horizontal long, vertical long, and short axis views. A gated Cardiolite study at peak stress was obtained. Rest and stress SPECT Cardiolite nuclear imaging status post realignment, normalization, and attenuation correction, demonstrates the appearance of relative uniform tracer uptake and myocardial perfusion appearing within normal limits. There is end systolic thickening and brightening. The gated Cardiolite study demonstrates myocardial thickening and inward wall motion. The reported LVEF is 75%. Impression: 1. Technically adequate (percent predicted maximal heart rate greater than 85%) exercise tolerance test 2. Peak exercise ECG with no ischemic changes 3. There were no cardiac dysrhythmias pretest, during exercise, or recovery 4. Rest and stress SPECT Cardiolite nuclear imaging demonstrate relative uniform tracer uptake and myocardial perfusion appearing within normal limits. 5. The gated Cardiolite study reports an LVEF of 75%. This note was generated with [employer] software. It may contain incorrect words, spelling, and punctuation that were not noted in checking the note before signing.
== END | disposition home or self-care (01) ==
LOC: CVS 06:28
PROVIDERS: PCP Family Medicine; Referring Provider Internal Medicine Cardiovascular Disease; Visit Provider Internal Medicine Cardiovascular Disease
DX: I10 Essential (primary) hypertension (principal); E03.9 Hypothyroidism, unspecified; R07.9 Chest pain, unspecified; R00.2 Palpitations
CPT/HCPCS: 78452; 93017; A9500; A4216

== ENCOUNTER → 2023-08-12 | Outpatient (CLI) | payer BC, SELFPAY ==
--- NOTE | 2023-08-12 16:57 | MRI_ITS ---
HISTORY: pain -- spinal stenosis C6-7. TECHNIQUE: Multiplanar and multisequence MR images of the cervical spine were obtained without contrast. 281 images. COMPARISON: XR 07/28/2023. FINDINGS: VERTEBRAE: Vertebral body heights maintained. Mild degenerative endplate changes of C4-5, C5-6, and C6-7. No other significant bone marrow signal abnormality. VERTEBRAL ALIGNMENT: Straightening of the cervical lordosis without anterior or posterior subluxation. SPINAL CORD: Cervical cord signal and morphology within normal limits. SOFT TISSUES: No prevertebral fluid collection. INTERVERTEBRAL DISCS: C2-3, C3-4: No significant posterior disc protrusion, central canal stenosis, or foraminal narrowing. C4-5: Very mild posterior disc bulge osteophyte complex with facet arthropathy resulting in minimal narrowing of the thecal sac and no significant foraminal narrowing . C5-6: Mild posterior disc bulge osteophyte complex with uncovertebral and facet arthropathy resulting in minimal narrowing of the thecal sac and bilateral foramina. C6-7: Mild posterior disc bulge osteophyte complex eccentric to the right with uncovertebral and facet arthropathy resulting in abutment of the right exiting and traversing nerve roots, minimal narrowing of the thecal sac, and mild right foraminal narrowing. C7-T1: Very mild posterior disc bulge osteophyte complex with no significant central canal stenosis or foraminal narrowing. MRI/Spine Cervical (Routine) IMPRESSION: Mild degenerative disc disease of the cervical spine without significant spinal canal stenosis. Mild right nerve root abutment and right foraminal narrowing at C6-7. Electronically Signed: Deborah Tapia MD at 9:49 EST ,
== END | disposition home or self-care (01) ==
PROVIDERS: PCP Family Medicine; Visit Provider Orthopaedic Surgery
DX: M48.02 Spinal stenosis, cervical region (principal)
CPT/HCPCS: 72141

== ENCOUNTER → 2024-07-26 | Outpatient (CLI) | payer BC, SELFPAY ==
--- OUTSIDE RECORDS SUMMARY | 2024-07-26 06:02 | XMS RPT_ITS | CCD ---
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) Referring Unava ilable SELMA OTERO Admitting Unavailable SELMA OTERO Attending Unavailable Mary Martínez MD Primary Care Provider Mary Martínez MD Primary Care Provider Mary Martínez MD Primary Care Provider Mary Martínez MD Primary Care Provider MARY MARTÍNEZ Primary Care Unavailable IVONNE, DMITRY Referring Unavailable MARY MARTÍNEZ Primary Care Unavailable MARY MARTÍNEZ Primary Care Unavailable IVONNE, DMITRY Referring Unavailable MARY MARTÍNEZ Primary Care Unavailable MARY MARTÍNEZ Primary Care Unavailable MARY MARTÍNEZ Attending Unavailable MARY MARTÍNEZ Primary Care Unavailable MARY MARTÍNEZ Attending Unavailable MARY MARTÍNEZ Primary Care Unavailable MARY MARTÍNEZ Attending Unavailable MAYR MARTÍNEZ Primary Care Unavailable MARY MARTÍNEZ Attending Unavailable MARY MARTÍNEZ Primary Care Unavailable NOEL LOZANO Referring Unavailable MARY MARTÍNEZ Primary Care Unavailable BROWN, YELENA Referring Unavailable STEPHANIE YELENA Attending Unavailable MARY MARTÍNEZ Primary Care Unavailable BROWN, YELENA Referring Unavailable MARY MARTÍNEZ Primary Care Unavailable ILAN BARRIOS Referring Unavailable BROWN, YELENA Attending Unavailable Cristo MIX MD, Frank A Primary Care Provider Ramya vailable Allergies Allergy Classification Reported Allergen(s) Allergy Type Date of Onset Reaction(s) Facility (20 sources) FLUoxetine; Translations: [FLUOXETINE HCL] Drug Allergy 6 Other: See Comments [facility] (20 sources) Seasonal allergy; Translations: [SEASONAL ALLERGIES] Propensity to adverse reactions (disorder) 6 Unknown [facility] Medications Current Medications Medication Drug Class(es) Dates Sig (Normalized) Sig (Original) [id number] 200 actuat albuterol 0.09 mg/actuat metered dose inhaler (20 sources) beta2-Adrenergic Agonist Start: 08-17-2023 take 2 puff(s) by inhalation every six hours as needed albuterol HFA (PROAIR HFA) 90 mcg/actuation inhaler Inhale 2 Puffs as instructed every 6 hours as needed. 8.5 g 08/17/2023 Active Start: 04-15-2021 End: 01-03-2024 take 2 puff(s) by inhalation every four hours as needed albuterol HFA (PROAIR HFA) 90 mcg/actuation inhaler Indications: Wheezing Inhale 2 Puffs as instructed every 4 hours as needed. 18 g 1 07/09/2023 01/03/2024 Discontinued Start: 01-24-2019 End: 01-03-2024 take 2.5 mg by inhalation every four hours as needed albuterol (PROVENTIL) 2.5 mg /3 mL (0.083 %) nebulizer solution Use 3 mL via nebulizer every 4 hours as needed for Wheezing/Shortness of Breath. Use over 5-15minutes. 1 Package 01/24/2019 01/03/2024 Discontinued Comment on above: Use 3 mL via nebuliz er every 4 hours as needed for Wheezing/Shortness of Breath. Use over 5-15minutes. Inhale 2 Puffs as in structed every 4 hours as needed. Inhale 2 Puffs as in structed every 6 hours as needed. Budesonide / formoterol (20 sources) Corticosteroid, beta2-Adrenergic Agonist Start: End: take 2 puff(s) by inhalation twice daily budesonide-formoter ol (SYMBICORT) 160-4.5 mcg/actuation inhaler Indications: Asthma with COPD with exacerbation (HCC) (HCC) Inhale 2 Puffs as instructed two times a day. 11 g 11 07/09/2023 07/08/2024 Active Start: 07-09-2023 End: 07-08-2024 take 2 puff(s) by inhalation twice daily budesonide-formoterol (SYMBICORT) 160-4.5 mcg/actuation inhaler Indications: Asthma with COPD with exacerbation (HCC) Inhale 2 Puffs as instructed two times a day. 11 g 11 07/09/2023 07/08/2024 Active Start: 06-01-2022 End: 07-09-2023 take 1 puff(s) by mouth twice daily SYMBICORT 160-4.5 mcg/actuation inhaler Indications: Asthma with COPD with exacerbation (HCC) INHALE 1 PUFF BY MOUTH INSTRUCTED TWICE A DAY 30.6 Each 3 06/01/2022 07/09/2023 Discontinued Start: 12-25-2020 End: 06-01-2022 take 1 puff(s) by mouth twice daily SYMBICORT 160-4.5 mcg/actuation inhaler Indications: Asthma with COPD with exacerbation (HCC) INHALE 1 PUFF BY MOUTH INSTRUCTED TWICE A DAY 30.6 g 3 12/25/2020 06/01/2022 Discontinued Comment on above: INHALE 1 PUFF BY SEGUNDO TH INSTRUCTED TWICE A DAY Inhale 2 Puffs as in structed two times a day. 24 hr buPROPion hydrochloride 300 mg extended release oral tablet (6 sources) Aminoketone Start: take 1 tablet by mouth once daily buPROPion XL (WELLBUTRIN XL) 300 mg 24 hr tablet Indications: Reactive depression , Tobacco abuse Take 1 tablet by mouth once daily. 30 tablet 1 02/04/2024 Active Start: 01-03-2024 End: 02-04-2024 take 1 tablet by mouth once daily buPROPion XL (WELLBUTRIN XL) 150 mg 24 hr tablet Indications: Reactive depression Take 1 tablet by mouth once daily. 30 tablet 5 01/03/2024 02/04/2024 Discontinued Comment on above: Take 1 tablet by segundo th once daily. celecoxib 100 mg oral capsule (3 sources) Nonsteroidal Anti-inflammatory Drug Start: End: 4 take 1 capsule by mouth twice daily celecoxib (CELEBREX) 100 mg capsule Indications: Left knee pain, unspecified chronicity , Right hip pain , Hip tendonitis, right Take 1 capsule by mouth two times a day. 60 capsule 1 07/05/2024 Active CPAP (20 sources) Start: 9 CPAP Settings 7 - 20 cm H2O, suitable mask per pt preference, chin strap, head gear, humidity, tubing, lifetime supplies. G47.33 FAIZAN 1 Device 12/29/2018 Active Start: 12-29-2018 CPAP Settings 7 - 20 cm H2O, suitable mask per pt preference, chin strap, head gear, humidity, tubing, lifetime supplies. G47.33 FAIZAN 1 Device 0 12/29/2018 Active Comment on above: Settings 7 - 20 cm H 2O, suitable mask per pt preference, chin strap, head gear, humidity, tubing, lifetime supplies. G47.33 FAIZAN gabapentin 300 mg oral capsule (10 sources) Anti-epileptic Agent Start: 4 End: 4 take 2 capsules by mouth three times daily gabapentin (NEURONTIN) 300 mg capsule Take 2 capsules by mouth three times a day for 90 days. 180 capsule 2 11/29/2023 Active Start: 09-14-2023 End: 11-29-2023 take 1 capsule by mouth three times daily gabapentin (NEURONTIN) 300 mg capsule Take 300 mg by mouth three times a day. 0 09/14/2023 11/29/2023 Discontinued Start: 10-17-2020 End: 10-08-2021 take 1 capsule by mouth three times daily gabapentin (NEURONTIN) 300 mg capsule Indications: Cervical radiculopathy , Cervicothoracic somatic dysfunction Take 1 capsule by mouth three times daily for 30 days. 90 capsule 10/17/2020 10/08/2021 Discontinued (Course of therapy completed) Comment on above: Take 2 capsules by out three times a day for 90 days. Take 300 mg by mouth three times a day. 12 hr guaiFENesin 600 mg extended release oral tablet (1 source) Start: 08-17-20 End: 08-24-20 take 1 tablet by mouth twice daily as needed guaiFENesin (MUCINEX) 600 mg 12 hr tablet Take 1 tablet by mouth two times a day as needed for cold/allergy symptoms (cough) for up to 7 days. 14 tablet 0 08/17/2023 08/24/2023 Active Comment on above: Take 1 tablet by segundo two times a day as needed for cold/allergy symptoms (cough) for up to 7 days. levothyroxine sodium 0.1 mg oral tablet (20 sources) l-Thyroxine Start: 07-09-20 End: 07-08-20 take 1 tablet by mouth once daily for thyroid dysfunction levothyroxine (SYNTHROID) 100 mcg tablet Indications: Acquired hypothyroidism Take 1 tablet by mouth once daily. Take on empty stomach. For thyroid 30 tablet 11 07/09/2023 07/08/2024 Active Start: 06-15-2023 take 1 tablet by segundo th once daily for thyroid dysfunction levothyroxine (SYNTHROID) 100 mcg tablet Indications: Acquired hypothyroidism Take 1 tablet by mouth once daily. Take on empty stomach. For thyroid 30 tablet 2 06/15/2023 Active Start: 11-30-2022 End: 06-15-2023 take 1 tablet by mouth once daily for thyroid dysfunction levothyroxine (SYNTHROID) 112 mcg tablet Indications: Acquired hypothyroidism Take 1 tablet by mouth once daily. Take on empty stomach. For thyroid 90 tablet 1 11/30/2022 06/15/2023 Discontinued Start: 08-08-2020 End: 11-30-2022 take 1 tablet by mouth once daily levothyroxine (SYNTHROID) 137 mcg tablet Indications: Acquired hypothyroidism TAKE ONE TABLET BY MOUTH DAILY FOR 6 DAYS OF THE WEEK. 77 tablet 4 11/09/2022 11/30/2022 Discontinued Comment on above: One tablet daily for 6 days of the week. TAKE ONE TABLET BY M OUT DAILY FOR 6 DAYS OF THE WEEK. Take 1 tablet by segundo th once daily. Take on empty stomach. For thyroid lisinopril 5 mg oral tablet (20 sources) Angiotensin Converting Enzyme Inhibitor Start: 08-12-2020 End: 01-03-2024 take 1 tablet by mouth once lisinopril (ZESTRIL) 5 mg tablet Take 1 tablet by mouth every afternoon. 90 tablet 3 01/03/2024 Active Comment on above: Take 1 tablet by segundo th once daily. TAKE 1 TABLET BY SEGUNDO TH EVERY DAY Take 1 tablet by segundo th every afternoon. 24 hr metoprolol succinate 25 mg extended release oral tablet (3 sources) beta-Adrenergic Lana Start: 02-01-2024 take 1 tablet by mouth every hour metoprolol succinate ER (TOPROL XL) 25 mg 24 hr tablet Take 1 tablet by mouth every afternoon. 02/01/2024 Active Nebulizer (20 sources) Start: 01-24-2019 Nebulizer NEBULIZER FOR HOME USE. DX:J40, R06.2 1 Device 01/24/2019 Active Start: 01-24-2019 Nebulizer NEBU LIZER FOR HOME USE. DX:J40, R06.2 1 Device 0 01/24/2019 Active Comment on above: NEBULIZER FOR HOME U SE. DX:J40, R06.2 pravastatin sodium 20 mg oral tablet (20 sources) HMG-CoA Reductase Inhibitor Start: 0 End: 4 take 1 tablet by mouth once daily at bedtime pravastatin (PRAVACHOL) 20 mg tablet Indications: Hyperlipidemia with target LDL less than 100 Take 1 tablet by mouth daily at bedtime. 90 tablet 3 12/20/2023 Active Comment on above: Take 1 tablet by segundo th daily at bedtime. TAKE 1 TABLET BY SEGUNDO TH EVERYDAY AT BEDTIME predniSONE 10 mg oral tablet (4 sources) Start: 3 End: 3 take 4 tablets by mouth once daily predniSONE (DELTASONE) 10 mg tablet Take 4 tablets by mouth once daily for 5 days. 20 tablet 0 08/17/2023 08/22/2023 Active Start: 06-08-2023 End: 06-17-2023 predniSONE (DELTASONE) 10 mg tablet Indications: Itching Take 4 tabs daily for 3 days, then 2 tabs daily for 3 days, then 1 tab daily for 3 days with food. 21 tablet 0 06/08/2023 06/17/2023 Active Start: 03-05-2022 End: 03-14-2022 predniSONE (DELTASONE) 10 mg tablet Indications: Olecranon bursitis of right elbow Take 4 tabs daily for 3 days, then 2 tabs daily for 3 days, then 1 tab daily for 3 days with food. 21 tablet 0 03/05/2022 03/14/2022 Active Comment on above: Take 4 tabs daily fo r 3 days, then 2 tabs daily for 3 days, then 1 tab daily for 3 days with food. Take 4 tablets by mo uth once daily for 5 days. Completed/Discontinued Medications Medication Drug Class(es) Dates Sig (Normalized) Sig (Original) cetirizine hydrochloride 10 mg oral tablet (14 sources) Histamine-1 Receptor Antagonist Start: 11-30-2022 End: 01-03-2024 take 1 tablet by mouth once daily cetirizine (ZYRTEC) 10 mg tablet Indications: Pruritus of skin Take 1 tablet by mouth once daily. 30 tablet 0 11/30/2022 01/03/2024 Discontinued Comment on above: Take 1 tablet by segundo th once daily. naproxen 500 mg oral tablet (1 source) Nonsteroidal Anti-inflammatory Drug Start: 05-16-2021 End: 10-08-2021 take 1 tablet by mouth twice daily as needed for pain naproxen (NAPROSYN) 500 mg tablet Indications: Medial epicondylitis of left elbow , Chronic pain of left knee , Instability of left knee joint Take 1 tablet by mouth twice daily as needed for pain (for pain/inflammation). Take with food. 60 tablet 1 05/16/2021 10/08/2021 Discontinued (Course of therapy completed) Problems Active Problems Problem Classification Problem Date Documented Date Episodic/Chronic Asthma (20 sources) Mild intermittent asthma; Translations: [Mild intermittent asthma, uncomplicated] Onset: 08-27-2015 08-27-2015 Chronic Chronic obstructive pulmonary disease and bronchiectasis (2 sources) Acute exacerbation of chronic obstructive airways disease with asthma; Translations: [Chronic obstructive pulmonary disease with (acute) exacerbation] Chronic Disorders of lipid metabolism (20 sources) Hyperlipidemia; Translations: [Hyperlipidemia, unspecified] Onset: 01-01-2011 08-07-2015 Chronic Esophageal disorders (20 sources) Gastro-esophageal reflux disease with esophagitis; Translations: [GERD with esophagitis] Onset: 01-06-2008 Resolved: 08-27-2015 12-27-2018 Chronic Genitourinary symptoms and ill-defined conditions (1 source) Increased frequency of urination; Translations: [Frequency of micturition] Episodic Immunity disorders (20 sources) Sarcoidosis; Translations: [Sarcoidosis, unspecified] Onset: 01-06-2008 01-06-2008 Chronic Mood disorders (20 sources) Reactive depression (situational); Translations: [Major depressive disorder, single episode, unspecified] Onset: 05-29-2009 Resolved: 08-27-2015 03-10-2016 Chronic Multiple sclerosis (2 sources) Multiple sclerosis; Translations: [Multiple sclerosis] Onset: 11-12-2023 11-12-2023 Chronic Other connective tissue disease (1 source) Bursitis of olecranon of right elbow; Translations: [Olecranon bursitis, right elbow] Episodic Other connective tissue disease (2 sources) Tendinitis of right hip; Translations: [Other specified enthesopathies of right lower limb, excluding foot] 03-13-2024 Episodic Other connective tissue disease (1 source) Medial epicondylitis of left humerus; Translations: [Medial epicondylitis, left elbow] 05-16-2021 Episodic Other inflammatory condition of skin (1 source) Itching of skin; Translations: [Pruritus, unspecified] Episodic Other inflammatory condition of skin (1 source) Itching ; Translations: [Pruritus, unspecified] 06-08-2023 Episodic Other nervous system disorders (1 source) Skin sensation disturbance; Translations: [Unspecified disturbances of skin sensation] 11-29-2023 Episodic Other nervous system disorders (1 source) Hyperreflexia; Translations: [Abnormal reflex] 11-29-2023 Episodic Other non-traumatic joint disorders (3 sources) Pain in left knee; Translations: [Pain in joint, lower leg] 03-13-2024 Episodic Other non-traumatic joint disorders (1 source) Pain in right hip joint; Translations: [Pain in right hip] 03-13-2024 Episodic Other non-traumatic joint disorders (1 source) Hip pain; Translations: [Pain in right hip] 07-05-2024 Episodic Other non-traumatic joint disorders (1 source) Instability of joint of left knee; Translations: [Other instability, left knee] 05-16-2021 Episodic Other upper respiratory infections (1 source) Viral upper respiratory tract infection; Translations: [Acute upper respiratory infection, unspecified] 08-17-2023 Episodic Residual codes; unclassified (1 source) Obstructive sleep apnea (adult) (pediatric); Translations: [Obstructive sleep apnea (adult) (pediatric)] Onset: 12-04-2018 Chronic Residual codes; unclassified (20 sources) Sleep apnea; Translations: [Sleep apnea, unspecified] Onset: 01-01-2011 12-14-2018 Chronic Residual codes; unclassified (1 source) Treatment not available; Translations: [Procedure and treatment not carried out for other reasons] Episodic Spondylosis; intervertebral disc disorders; other back problems (20 sources) Cervical arthritis; Translations: [Spondylosis without myelopathy or radiculopathy, cervical region] Onset: 04-17-2017 04-17-2017 Chronic Thyroid disorders (20 sources) Acquired hypothyroidism; Translations: [Hypothyroidism, unspecified] Onset: 08-16-2006 08-07-2015 Chronic Past or Other Problems Problem Classification Problem Date Documented Date Episodic/Chronic Abdominal pain (20 sources) Unspecified abdominal pain; Translations: [Abdominal pain] Onset: 09-16-2018 09-16-2018 Episodic Calculus of urinary tract (20 sources) Kidney stone; Translations: [Calculus of kidney] Onset: 10-02-2019 10-02-2019 Episodic Cardiac dysrhythmias (5 sources) Atrial fibrillation; Translations: [Unspecified atrial fibrillation] Onset: 08-15-2010 Resolved: 01-27-2014 01-27-2014 Chronic Essential hypertension (8 sources) Essential hypertension; Translations: [Essential (primary) hypertension] Onset: 03-19-2010 Resolved: 08-27-2015 Chronic Nonmalignant breast conditions (20 sources) Breast lump; Translations: [Unspecified lump in unspecified breast] Onset: 10-02-2019 10-02-2019 Episodic Other bone disease and musculoskeletal deformities (20 sources) Somatic dysfunction of cervicothoracic region; Translations: [Segmental and somatic dysfunction of cervical region] Onset: 07-31-2011 07-31-2011 Episodic Other circulatory disease (20 sources) H/O: atrial fibrillation; Translations: [Personal history of other diseases of the circulatory system] Onset: 01-27-2014 01-27-2014 Episodic Other diseases of veins and lymphatics (20 sources) Vascular insufficiency; Translations: [Venous insufficiency (chronic) (peripheral)] Onset: 01-05-2013 01-05-2013 Episodic Other screening for suspected conditions (not mental disorders or infectious disease) (20 sources) Encounter for screening for malignant neoplasm of colon; Translations: [Patient encounter status] Onset: 09-16-2018 09-16-2018 Episodic Residual codes; unclassified (20 sources) Tobacco user; Translations: [Tobacco use] Onset: 11-28-2012 11-28-2012 Episodic Spondylosis; intervertebral disc disorders; other back problems (20 sources) Cervical radiculopathy; Translations: [Radiculopathy, cervical region] Onset: 11-28-2012 Resolved: 08-14-2016 04-17-2017 Episodic Results Test Name Value Interpretation Reference Range Facility [facility] 03-13-2024 CNOV Office Visit ([facility] ) KEATON AGUILA ([id number]) 1965 M Date Time Provider Department 03/13/24 2:00 PM [facility] During your visit today, we recorded the following information about you: Pulse Respiration Blood pressure Weight 68/minute 18/minute 136/82 92.4 kg Mary Martínez MD 03/13/2024 2:52 PM Signed Chief Complaint Patient presents with: Pain HPI Keaton Aguila is a 58 year old male who presents here today for an acute visit. Pt here today for left knee and right hip pain. Pt reports chronic left knee pain, but worse over the past two weeks. Has cracking and popping with bending and ambulating at times. With certain movements feels his knee is unstable and could give out. Right hip pain started 1 week ago. Unsure if this is related to his knee and limping around. Pain for both areas described as a dull aching type pain. Denies any swelling in his knee. Pain at present time rated a 2/10, earlier today a 6/10. Pt had to leave work earlier today due to the increased amount of pain he was in, so he scheduled an appt. Has tried using Tylenol Arthritis and ice packs with not significant amount of relief. Tried Aleve two weeks ago, didn't notice any improvement. Denies pain improving with sitting, gets stiff after sitting for 15 minutes. Once he gets up and moves it will loosen up. Feels he more than likely has arthritis. Had x-rays left knee in 2020 which were normal. Did not see Ortho back then. Behavioral Health Screening PHQ-9 Score: 1 (Minimal Depression) Recommendation: continuing current treatment plan Past medical history, appointments, medications, allergies reviewed. Previous Medical History PAST MEDICAL HISTORY Diagnosis Date Asthma with COPD (HCC) Atrial fibrillation (HCC) ablation 03/13/13 Cervical arthritis 04/17/2017 Cervical radiculopathy 04/17/2017 Cervicothoracic somatic dysfunction 07/31/2011 Depression Elevated prostate specific antigen (PSA) Esophageal reflux Fatty liver disease, nonalcoholic Gallbladder polyp 10/2017 2 mm Hyperlipidemia LDL goal < 100 01/01/2011 Hypertension Hypothyroidism Mild intermittent asthma without complication 08/27/2015 Osteoarthrosis, unspecified whether generalized or localized, other specified sites SERONEGATIVE Other and unspecified hyperlipidemia Peripheral vascular disease (HCC) Reactive depression 03/10/2016 Sarcoidosis Sleep apnea 01/01/2011 C-PAP Unspecified asthma(493.90) Unspecified hypothyroidism Previous Surgical History PAST SURGICAL HISTORY Procedure Laterality Date CATHETER ABLATION, INTRACARDIAC 03/13/13 atrial fibrillation COLONOSCOPY FLX DX W/COLLJ SPEC WHEN PFRMD 10/10/2018 Colonoscopy ESOPHAGOGASTRODUODENOSCOPY TRANSORAL DIAGNOSTIC 10/10/2018 EGD PAST SURGICAL HISTORY OF biopsy- sarcoidosis PAST SURGICAL HISTORY OF sinus polypectomy SEPTOPLASTY 2013 with polypectomy UMBILICAL HERNIA REPAIR 5 OR OLDER 2013 Family History FAMILY HISTORY Problem Relation Age of Onset Stroke Mother Diabetes Father Lipids Father Cancer Father stomach cancer Diabetes Maternal Grandfather Diabetes Maternal Uncle None Sister Patient Allergies ALLERGIES Allergen Reactions Prozac [Fluoxetine * Other: See Comments excessive sedation Seasonal Allergies Unknown Patient does get allergy injections twice per week Current Medications Current Outpatient Medications on File Prior to Visit Medication Sig metoprolol succinate ER (TOPROL XL) 25 mg 24 hr tablet Take 1 tablet by mouth every afternoon. buPROPion XL (WELLBUTRIN XL) 300 mg 24 hr tablet Take 1 tablet by mouth once daily. lisinopril (ZESTRIL) 5 mg tablet Take 1 tablet by mouth every afternoon. pravastatin (PRAVACHOL) 20 mg tablet Take 1 tablet by mouth daily at bedtime. gabapentin (NEURONTIN) 300 mg capsule Take 2 capsules by mouth three times a day for 90 days. albuterol HFA (PROAIR HFA) 90 mcg/actuation inhaler Inhale 2 Puffs as instructed every 6 hours as needed. budesonide-formoterol (SYMBICORT) 160-4.5 mcg/actuation inhaler Inhale 2 Puffs as instructed two times a day. levothyroxine (SYNTHROID) 100 mcg tablet Take 1 tablet by mouth once daily. Take on empty stomach. For thyroid Nebulizer NEBULIZER FOR HOME USE. DX:J40, R06.2 CPAP Settings 7 - 20 cm H2O, suitable mask per pt preference, chin strap, head gear, humidity, tubing, lifetime supplies. G47.33 FAIZAN No current facility-administered medications on file prior to visit. Social History Social History Tobacco Use Smoking status: Every Day Packs/day: 0.20 Years: 20.00 Additional pack years: 0.00 Total pack years: 4.00 Types: Cigarettes Last attempt to quit: 12/08/2012 Years since quittin.2 Smokeless tobacco: Current Types: Chew Vaping Use Vaping Use: Never used Substance Use Topics Alcohol use: Not (more content not included)... Normal [facility] 02-25-2024 CNOV Office Visit (FAMPWS ) KEATON AGUILA ([id number]) 1965 M Date Time Provider Department 02/25/24 4:20 PM [facility] During your visit today, we recorded the following information about you: Pulse Respiration Blood pressure Weight 70/minute 16/minute 130/80 91.7 kg Mary Martínez MD 02/25/2024 4:43 PM Signed Chief Complaint Patient presents with: F/U 1 month HPI Keaton Aguila is a 58 year old male who presents here today for 1 month follow up. Here for 1 month follow up on depression. Wellbutrin ws increased last visit to 300 mg daily. He feels this is working well for him at this time. His sleeping patterns are a little better, rather than getting up every 1 hour he is able to sleep a little longer. He has not had any negative issues with the increased Wellbutrin. 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 Started getting allergy shots again. Past medical history, appointments, medications, allergies reviewed. Previous Medical History PAST MEDICAL HISTORY Diagnosis Date Asthma with COPD (HCC) Atrial fibrillation (HCC) ablation 03/13/13 Cervical arthritis 04/17/2017 Cervical radiculopathy 04/17/2017 Cervicothoracic somatic dysfunction 07/31/2011 Depression Elevated prostate specific antigen (PSA) Esophageal reflux Fatty liver disease, nonalcoholic Gallbladder polyp 10/2017 2 mm Hyperlipidemia LDL goal < 100 01/01/2011 Hypertension Hypothyroidism Mild intermittent asthma without complication 08/27/2015 Osteoarthrosis, unspecified whether generalized or localized, other specified sites SERONEGATIVE Other and unspecified hyperlipidemia Peripheral vascular disease (HCC) Reactive depression 03/10/2016 Sarcoidosis Sleep apnea 01/01/2011 C-PAP Unspecified asthma(493.90) Unspecified hypothyroidism Previous Surgical History PAST SURGICAL HISTORY Procedure Laterality Date CATHETER ABLATION, INTRACARDIAC 03/13/13 atrial fibrillation COLONOSCOPY FLX DX W/COLLJ SPEC WHEN PFRMD 10/10/2018 Colonoscopy ESOPHAGOGASTRODUODENOSCOPY TRANSORAL DIAGNOSTIC 10/10/2018 EGD PAST SURGICAL HISTORY OF biopsy- sarcoidosis PAST SURGICAL HISTORY OF sinus polypectomy SEPTOPLASTY 2013 with polypectomy UMBILICAL HERNIA REPAIR 5 OR OLDER 2013 Family History FAMILY HISTORY Problem Relation Age of Onset Stroke Mother Diabetes Father Lipids Father Cancer Father stomach cancer Diabetes Maternal Grandfather Diabetes Maternal Uncle None Sister Patient Allergies ALLERGIES Allergen Reactions Prozac [Fluoxetine * Other: See Comments excessive sedation Seasonal Allergies Unknown Patient does get allergy injections twice per week Current Medications Current Outpatient Medications on File Prior to Visit Medication Sig buPROPion XL (WELLBUTRIN XL) 300 mg 24 hr tablet Take 1 tablet by mouth once daily. lisinopril (ZESTRIL) 5 mg tablet Take 1 tablet by mouth every afternoon. pravastatin (PRAVACHOL) 20 mg tablet Take 1 tablet by mouth daily at bedtime. gabapentin (NEURONTIN) 300 mg capsule Take 2 capsules by mouth three times a day for 90 days. albuterol HFA (PROAIR HFA) 90 mcg/actuation inhaler Inhale 2 Puffs as instructed every 6 hours as needed. budesonide-formoterol (SYMBICORT) 160-4.5 mcg/actuation inhaler Inhale 2 Puffs as instructed two times a day. levothyroxine (SYNTHROID) 100 mcg tablet Take 1 tablet by mouth once daily. Take on empty stomach. For thyroid Nebulizer NEBULIZER FOR HOME USE. DX:J40, R06.2 CPAP Settings 7 - 20 cm H2O, suitable mask per pt preference, chin strap, head gear, humidity, tubing, lifetime supplies. G47.33 FAIZAN No current facility-administered medications on file prior to visit. Social History Social History Tobacco Use Smoking status: Every Day Packs/day: 0.20 Years: 20.00 Additional pack years: 0.00 Total pack years: 4.00 Types: Cigarettes Last attempt to quit: 12/08/2012 Years since quittin.2 Smokeless tobacco: Current Types: Chew Vaping Use Vaping Use: Never used Substance Use Topics Alcohol use: Not Currently Comment: Beer on weekends Drug use: No EXAM: BP 130/80 Pulse 70 Resp 16 Wt 91.7 kg (202 lb 3.2 oz) BMI 29.43 kg/m? General Appearance: Well appearing, alert, in no acute distress, well-hydrated, well nourished.. Lungs: Lungs clear to auscultation. No wheezing, rhonchi, rales.. Heart: RRR without murmur, gallop, or rubs. No ectopy. Health Maintenance List Spirometry Never done Shingrix Vaccine(1 of 2) Never done BP Controlled (<130/80) due on 03/10/2020 Colorectal Cancer Screening due on 10/10/2023 Hepatitis C Screening due on 01/02/2025 HIV Screening due on 01/02/2025 Covid-19 Vaccine( seaso (more content not included)... Normal [facility] CNOVon 02-04-2024 CNOV Office Visit (FAMPWS ) KEATON AGUILA ([id number]) 1965 M Date Time Provider Department 02/04/24 4:20 PM MARY MARTÍNEZ FAMPWS During your visit today, we recorded the following information about you: Pulse Respiration Blood pressure Weight 72/minute 16/minute 130/74 93.8 kg Mary Martínez MD 02/04/2024 4:21 PM Signed Chief Complaint Patient presents with: F/U 1 month HPI Keaton Aguila is a 58 year old male who presents here today for 1 month follow up. Here for a 1 month follow up on medication. PHQ score was 11. Was started on Wellbutrin 150 mg daily last visit due to increased stress due to his job. Denies noticing any change with use of medication. Hasn't noticed any change in his sleeping habit, still waking up every couple hours. Gets intrusive thoughts while at work where he feels he wants to snap, but doesn't and waits til he gets home. Will talk to his and snap some at her. She does notice he seems more snappy . Does feel the weather has helped some. Tends to get worse during the winter months, but better when the suns shining. Today was a good day, was off work and was outside all day. Denies symptoms getting any worse. No decreased smoking either with use of medication. Is tolerating medication well, denies making him feel any more tired. Past medical history, appointments, medications, allergies reviewed. Previous Medical History PAST MEDICAL HISTORY Diagnosis Date Asthma with COPD (HCC) Atrial fibrillation (HCC) ablation 03/13/13 Cervical arthritis 04/17/2017 Cervical radiculopathy 04/17/2017 Cervicothoracic somatic dysfunction 07/31/2011 Depression Elevated prostate specific antigen (PSA) Esophageal reflux Fatty liver disease, nonalcoholic Gallbladder polyp 10/2017 2 mm Hyperlipidemia LDL goal < 100 01/01/2011 Hypertension Hypothyroidism Mild intermittent asthma without complication 08/27/2015 Osteoarthrosis, unspecified whether generalized or localized, other specified sites SERONEGATIVE Other and unspecified hyperlipidemia Peripheral vascular disease (HCC) Reactive depression 03/10/2016 Sarcoidosis Sleep apnea 01/01/2011 C-PAP Unspecified asthma(493.90) Unspecified hypothyroidism Previous Surgical History PAST SURGICAL HISTORY Procedure Laterality Date CATHETER ABLATION, INTRACARDIAC 03/13/13 atrial fibrillation COLONOSCOPY FLX DX W/COLLJ SPEC WHEN PFRMD 10/10/2018 Colonoscopy ESOPHAGOGASTRODUODENOSCOPY TRANSORAL DIAGNOSTIC 10/10/2018 EGD PAST SURGICAL HISTORY OF biopsy- sarcoidosis PAST SURGICAL HISTORY OF sinus polypectomy SEPTOPLASTY 2013 with polypectomy UMBILICAL HERNIA REPAIR 5 OR OLDER 2013 Family History FAMILY HISTORY Problem Relation Age of Onset Stroke Mother Diabetes Father Lipids Father Cancer Father stomach cancer Diabetes Maternal Grandfather Diabetes Maternal Uncle None Sister Patient Allergies ALLERGIES Allergen Reactions Prozac [Fluoxetine * Other: See Comments excessive sedation Seasonal Allergies Unknown Patient does get allergy injections twice per week Current Medications Current Outpatient Medications on File Prior to Visit Medication Sig lisinopril (ZESTRIL) 5 mg tablet Take 1 tablet by mouth every afternoon. buPROPion XL (WELLBUTRIN XL) 150 mg 24 hr tablet Take 1 tablet by mouth once daily. pravastatin (PRAVACHOL) 20 mg tablet Take 1 tablet by mouth daily at bedtime. gabapentin (NEURONTIN) 300 mg capsule Take 2 capsules by mouth three times a day for 90 days. albuterol HFA (PROAIR HFA) 90 mcg/actuation inhaler Inhale 2 Puffs as instructed every 6 hours as needed. budesonide-formoterol (SYMBICORT) 160-4.5 mcg/actuation inhaler Inhale 2 Puffs as instructed two times a day. levothyroxine (SYNTHROID) 100 mcg tablet Take 1 tablet by mouth once daily. Take on empty stomach. For thyroid Nebulizer NEBULIZER FOR HOME USE. DX:J40, R06.2 CPAP Settings 7 - 20 cm H2O, suitable mask per pt preference, chin strap, head gear, humidity, tubing, lifetime supplies. G47.33 FAIZAN No current facility-administered medications on file prior to visit. Social History Social History Tobacco Use Smoking status: Every Day Packs/day: 0.20 Years: 20.00 Additional pack years: 0.00 Total pack years: 4.00 Types: Cigarettes Last attempt to quit: 12/08/2012 Years since quittin.1 Smokeless tobacco: Current Types: Chew Vaping Use Vaping Use: Never used Substance Use Topics Alcohol use: Not Currently Comment: Beer on weekends Drug use: No EXAM: BP 130/74 (BP Site: Left Arm, BP Position: Sitting, BP Cuff Size: Regular Adult) Pulse 72 Resp 16 Wt 93.8 kg (206 lb 12.8 oz) BMI 30.10 kg/m? General Appearance: Well appearing, alert, in no acute distress, well-hydrated, well nourished. and Overweight. Lungs: Lungs clear to auscultation. No wheezing, (more content not included)... Normal [facility] CNOVon 01-03-2024 CNOV Office Visit (FAMPWS ) KEATON AGUILA ([id number]) 1965 M Date Time Provider Department 01/03/24 5:00 PM [facility] your visit today, we recorded the following information about you: Pulse Respiration Blood pressure Weight 64/minute 16/minute 132/84 95.5 kg Height 1.765 m Mary Martínez MD 01/03/2024 6:18 PM Signed Chief Complaint Follow up HPI Keaton Aguila is a 58 year old male who presents here today for follow up Here today for routine Wellness. Had labs done in November through work. He says his cholesterol was better than it had ever been. No bowel, Gi, or urinary concerns. Due for 5 year colonoscopy; tubular adenoma removed in 2019. He will schedule this. Smoking - Currently smoking 1 pack every 3 days and 1 can of chew almost a week. Feels this is related to increased stress. Really wants to quit, but feels he's not able to, with his increased stress. HTN: Taking Lisinopril 5 mg daily. Denies checking BP at home. No chest pains, dizziness, or SOB. Is following with Dr. Bray at [facility]. Was seen by them in July, has f/u next month. Lipid: Taking Pravastatin 20 mg daily. Tolerating well. Tries to watch diet, states that he's lost 6 lbs. Eating less red meat, lots of vegetables. No formal exercise but stays very active at work. Allergies/Asthma: Breathing is doing excellent at this time. Uses Albuterol inhaler prn, Symbicort inhaler 2 puffs BID prn, and has Nebulizer to use prn. Will start receiving his allergy shots tomorrow once weekly at [facility]. Thyroid: Taking Synthroid 100 mcg daily. No missed dosages. FAIZAN: Uses CPAP at 7-20 cm of water. Can't go without his CPAP. Receives supplies through [employer]. Pain: Follows with Physical Medicine for Cervical radiculopathy. Is taking Gabapentin 300 mg 2 pills TID prn. Pt completed Depression questionnaire through [employer]. PHQ-9 score is 14. PHQ-2 score is 2. Currently on no medications at this time. Pt has dx of depression. Pt at this time states he's not depressed and is more stressed due to his work. Has a high stress job, has worked there for 35 years. Has been able to deal with this generally, hoping this improves. He is not interested in counseling. Tried Prozac years ago but fell asleep driving after 2 days on it. HM - Declines Hep C/HIV screening. Declines Covid vaccine. Past medical history, appointments, medications, allergies reviewed. Previous Medical History PAST MEDICAL HISTORY Diagnosis Date Asthma with COPD Atrial fibrillation (HCC) ablation 03/13/13 Cervical arthritis 04/17/2017 Cervical radiculopathy 04/17/2017 Cervicothoracic somatic dysfunction 07/31/2011 Depression Elevated prostate specific antigen (PSA) Esophageal reflux Fatty liver disease, nonalcoholic Gallbladder polyp 10/2017 2 mm Hyperlipidemia LDL goal < 100 01/01/2011 Hypertension Hypothyroidism Mild intermittent asthma without complication 08/27/2015 Osteoarthrosis, unspecified whether generalized or localized, other specified sites SERONEGATIVE Other and unspecified hyperlipidemia Peripheral vascular disease (HCC) Reactive depression 03/10/2016 Sarcoidosis Sleep apnea 01/01/2011 C-PAP Unspecified asthma(493.90) Unspecified hypothyroidism Previous Surgical History PAST SURGICAL HISTORY Procedure Laterality Date CATHETER ABLATION, INTRACARDIAC 03/13/13 atrial fibrillation COLONOSCOPY FLX DX W/COLLJ SPEC WHEN PFRMD 10/10/2018 Colonoscopy ESOPHAGOGASTRODUODENOSCOPY TRANSORAL DIAGNOSTIC 10/10/2018 EGD PAST SURGICAL HISTORY OF biopsy- sarcoidosis PAST SURGICAL HISTORY OF sinus polypectomy SEPTOPLASTY 2014 with polypectomy UMBILICAL HERNIA REPAIR 5 OR OLDER 2013 Family History FAMILY HISTORY Problem Relation Age of Onset Stroke Mother Diabetes Father Lipids Father Cancer Father stomach cancer Diabetes Maternal Grandfather Diabetes Maternal Uncle None Sister Patient Allergies ALLERGIES Allergen Reactions Prozac [Fluoxetine * Other: See Comments excessive sedation Seasonal Allergies Unknown Patient does get allergy injections twice per week Current Medications Current Outpatient Medications on File Prior to Visit Medication Sig pravastatin (PRAVACHOL) 20 mg tablet Take 1 tablet by mouth daily at bedtime. lisinopril (ZESTRIL) 5 mg tablet take 1 tablet by mouth every day gabapentin (NEURONTIN) 300 mg capsule Take 2 capsules by mouth three times a day for 90 days. albuterol HFA (PROAIR HFA) 90 mcg/actuation inhaler Inhale 2 Puffs as instructed every 6 hours as needed. budesonide-formoterol (SYMBICORT) 160-4.5 mcg/actuation inhaler Inhale 2 Puffs as instructed two times a day. levothyroxine (SYNTHROID) 100 mcg tablet Take 1 tablet by mouth once daily. Take on empty stomach. For thyroid albuterol HFA (PROAIR HFA) 90 mcg/actuation (more content not included)... Normal [facility] Prostate specific Ag [Mass/Vol] 1.46 ng/mL Normal <2.60 [facility] Comment on above: Order Comment: Speci men Type: BLOOD SPECIMENOrdering Facility: [facility] Address: [address] [place] [address] Result Comment: Naeem chan PSA test methodology used is the Electrochemiluminescence Immunoassay by [employer]. Total PSA values by differing methodologies cannot be interchanged. Performed By: #### 2 857-1 ####[facility] LABCLIA [id number] [place] [address] [place] MR Brain WO contraston 11-12 [facility] MRI BRAIN WO IVCONon 024 MRI BRAIN WO IVCON * * *Final Report* * * DATE OF EXAM: Nov 12 2023 2:42PM [facility] 0294 - MRI BRAIN WO IVCON / PROCEDURE REASON: Multiple sclerosis (HCC) * * * * Physician Interpretation * * * * MRI BRAIN WO IVCON HISTORY: Multiple sclerosis (HCC) TECHNIQUE: Routine noncontrast MRI protocol including diffusion images. MQ: [id number] COMPARISON: MRI cervical spine from outside institution 08/12/2023. RESULT: Acute Change: There is no evidence of restricted diffusion to suggest an acute infarct. Hemorrhage: No evidence of prior parenchymal hemorrhage on the gradient echo images. Mass Lesion/ Mass Effect: No evidence of an intracranial mass or extra-axial fluid collection. No significant mass effect. Chronic Change: A few punctate foci of T2/FLAIR hyperintense signal abnormality are present in the supratentorial white matter including a right periventricular focus on image 24 series 2, nonspecific. No focal lesions in the corpus callosum or callososeptal junction. Parenchyma: No significant volume loss for age. The brain parenchyma is otherwise within normal limits of signal intensity and morphology. Ventricles: Normal caliber and morphology. Skull Base: Hypothalamic and pituitary region are grossly normal. Craniocervical junction is normal. No significant marrow replacement process. Vasculature: Major intracranial arterial structures, and dural venous sinuses show typical flow void, suggesting patency by spin echo criteria. Other: Bilateral mastoid effusions. Paranasal sinus mucosal thickening. IMPRESSION: No evidence of an acute intracranial process. Minimal white matter hyperintensities which are nonspecific. Bilateral mastoid effusion. Electrocardiograph Technician: LENKA Transcribe Date/Time: Nov 12 2023 3:33P Dictated by : RODERICK CARBAJAL MD This examination was interpreted and the report reviewed and electronically signed by: RODERICK CARBAJAL MD on Nov 12 2023 3:36PM EST [id number] Normal [facility] CNOVon 10-18-2023 CNOV Office Visit (SPNMED ) KEATON AGUILA ([id number]) 1965 M Date Time Provider Department 10/18/23 3:40 PM YELENA BROWN SPNMED During your visit today, we recorded the following information about you: Pulse Blood pressure Weight 75/minute 159/87 96.6 kg Yelena Brown DO 10/19/2023 8:44 AM Signed [facility] Neck Pain - Chronic (> 12 weeks) Initial Exam SUBJECTIVE HISTORY OF PRESENT ILLNESS: Keaton Aguila is a 58 year old male who presents with a chief complaint of neck pain Chronic neck pain many years. Saw a spine doctor who checked reflexes recommended come here..numbness in arm R>L Worse: sitting at computer, driving. Night trouble getting comfortable. H/o Pruritus in arms, thought was due to pinched nerve. Last episode 06/2022. Also feeling of RLS in lower neck/upper back. Right leg feels like it wants to run on its own constantly. Blurred vision in right eye. Possibly some problems with balance over the last year. H/o injection 10 years ago. No clear relief Chiro helps for 1-2 days. None for 4 years. PT pre-covid did not help. PAIN EVALUATION 10/12/2023 1419 10/18/2023 1524 Pain Level: 3 2 Pain Location: Shoulder-Right -- upper back Description: Dull;Itching;Numbness;Radiat ing;Sharp;Stiffness Aching;Numbness Duration Amount of Time: 24 -- Duration Units: -- Years Frequency: Continuous Continuous Intervention/Comfort measure: Cold;Exercise;Massage;Positi oning -- Comments: The pain varies from numb-not much pain to sharp persistent aching pain that can usually go up to 7 on the pain scale -- Litigation: No Workers' Compensation: No YELLOW AND BLUE FLAGS No-Neg Attitude; Back Pain is Disabling No-Avoiding Activity (for Fear of Pain) No-Depression or Anxiety Disorders No-Social Problems No-Substance Use Disorder No-Job Dissatisfaction No-Financial Disincentives Patient Entered Questionnaires Spine Questions 10/12/2023 Pain Location: Upper back/torso Pain Duration: More than 5 years Pain over last 6 months: Every day or nearly every day in the past 6 months Symptoms from neck/cervical spine: Yes Employment Status: Working now Involved in law suit/legal claim: No Spine Red Flags 10/12/2023 Any type of cancer: No Unexplained fever: No Bowel or bladder disfunction: No Unintentional weight loss: No Osteoporosis: No Neck Questionnaires 10/12/2023 Benzel Modified ILAN Score 16 (A lower score indicates increased pain and issues.) PROMIS Score Percentiles Physical Health 01/15/2020 02/27/2020 10/12/2023 Physical Function Percentile 18* 42 27* Sleep Percentile - - 14 Fatigue Percentile 18* 10 10 Pain Interference Percentile 4 - 12 PROMIS SOCIAL ROLE SCORE 01/15/2020 02/27/2020 10/12/2023 Social Role Satisfaction Percentile 10 24* 10 PROMIS Global Health Scale 10/02/2021 11/26/2022 10/12/2023 Physical Health Percentile 31 41 31 Mental Health Percentile 43 26* 34 Percentiles provide an indication of how the patient's score ranks in relation to the general population. Higher percentile rankings indicate better function/quality of life. 50th percentile is the average of the general population and indicates half of respondents had a worse score. Depression Screening: PHQ-9 05/16/2021 11/26/2022 10/12/2023 Score 14 3 9 PHQ-9 Self Harm 05/16/2021 11/26/2022 10/12/2023 Question 9 Not at all Not at all Not at all PHQ-9 Self-Harm (Item 9) response options: 0 Not at all 1 Several days 2 More than half the days 3 Nearly every day PHQ-9 Levels: 0-4 No - mild depression 5-9 Mild depression 10-14 Moderate depression 15-19 Moderately severe depression 20-27 Severe depression ACTIVE PROBLEM LIST Acquired Hypothyroidism Sarcoidosis Sleep Apnea Hyperlipidemia With Target Ldl Less Than 100 Cervicothoracic Somatic Dysfunction Tobacco Abuse Venous Insufficiency History of Atrial Fibrillation Without Current Medication Mild Intermittent Asthma Without Complication Reactive Depression Cervical Radiculopathy Cervical Arthritis Screening for Colon Cancer Abdominal Pain Gerd With Esophagitis Renal Stone Breast Mass in Male PAST MEDICAL HISTORY Diagnosis Date Asthma with COPD Atrial fibrillation (HCC) ablation 03/13/13 Cervical arthritis 04/17/2017 Cervical radiculopathy 04/17/2017 Cervicothoracic somatic dysfunction 07/31/2011 Depression Elevated prostate specific antigen (PSA) Esophageal reflux Fatty liver disease, nonalcoholic Gallbladder polyp 10/2017 2 mm Hyperlipidemia LDL goal < 100 01/01/2011 Hypertension Hypothyroidism Mild intermittent asthma without complication 08/27/2015 Osteoarthrosis, unspecified whether generalized or localized, other specified sites SERONEGATIVE Other and unspecified hyperlipidemia Peripheral vascular disease (HCC) Reactive depression 03/10/2016 Sarcoidosis 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 Normal [facility] CNPElizabeth 10-11-2023 CNPN Telephone (FAMPWS) KEATON AGUILA ([id number]) 1965 M Date Time Provider Department 10/11/23 DMITRY CORONADO During your visit today, we recorded the following information about you: Dmitry Coronado APRN.CNP 10/11/2023 8:18 AM Signed Please let the patient know that his TSH has returned to normal range. Continue with current dose levothyroxine. CANDIDO Lyons Brittany L, MA 10/11/2023 9:50 AM Signed Patient active MyChart. Patient notified via LEYIO message. Tyson Rudolph MA Allergies As of Date: 10/11/2023 Noted Allergy Reaction PROZAC (FLUOXETINE HCL) 03/10/2016 14 - Other: See Comments Comments: excessive sedation SEASONAL ALLERGIES 08/14/2016 16 - Unknown Comments: Patient does get allergy injections twice per week Date Reviewed: 08/17/2023 Reviewed by: Hayder Santacruz APRN.CNP - Fully Assessed Reason for Visit: Results [95] Prescriptions as of 10/11/2023 - albuterol HFA (PROAIR HFA) 90 mcg/actuation inhaler Inhale 2 Puffs as instructed every 6 hours as needed. - budesonide-formoterol (SYMBICORT) 160-4.5 mcg/actuation inhaler Inhale 2 Puffs as instructed two times a day. - levothyroxine (SYNTHROID) 100 mcg tablet Take 1 tablet by mouth once daily. Take on empty stomach. For thyroid - albuterol HFA (PROAIR HFA) 90 mcg/actuation inhaler Inhale 2 Puffs as instructed every 4 hours as needed. - cetirizine (ZYRTEC) 10 mg tablet Take 1 tablet by mouth once daily. - pravastatin (PRAVACHOL) 20 mg tablet TAKE 1 TABLET BY MOUTH EVERYDAY AT BEDTIME - lisinopril (ZESTRIL, PRINIVIL) 5 mg tablet TAKE 1 TABLET BY MOUTH EVERY DAY - albuterol (PROVENTIL) 2.5 mg /3 mL (0.083 %) nebulizer solution Use 3 mL via nebulizer every 4 hours as needed for Wheezing/Shortness of Breath. Use over 5-15minutes. - Nebulizer NEBULIZER FOR HOME USE. DX:J40, R06.2 - CPAP Settings 7 - 20 cm H2O, suitable mask per pt preference, chin strap, head gear, humidity, tubing, lifetime supplies. G47.33 FAIZAN Problem List As Of Date 10/11/2023 Noted Resolved Acquired hypothyroidism [E03.9] 08/16/2006 Esophageal reflux [K21.9] 01/06/2008 08/27/2015 SARCOIDOSIS [D86.9] 01/06/2008 Depression [F32.A] 05/29/2009 08/27/2015 Essential Hypertension, Benign [I10] 03/19/2010 08/27/2015 Atrial fibrillation (HCC) [I48.91] 08/15/2010 01/27/2014 Sleep apnea [G47.30] 01/01/2011 Hyperlipidemia with target LDL less than 100 [E*01/01/2011 Cervicothoracic somatic dysfunction [M99.01] 07/31/2011 Thoracic back pain [M54.6] 11/28/2012 08/14/2016 Tobacco abuse [Z72.0] 11/28/2012 Venous insufficiency [I87.2] 01/05/2013 History of atrial fibrillation without current *01/27/2014 Mild intermittent asthma without complication [*08/27/2015 Reactive depression [F32.9] 03/10/2016 Cervical radiculopathy [M54.12] 04/17/2017 Cervical arthritis (HCC) [M47.812] 04/17/2017 Screening for colon cancer [Z12.11] 09/16/2018 Abdominal pain [R10.9] 09/16/2018 GERD with esophagitis [K21.00] 12/27/2018 Renal stone [N20.0] 10/02/2019 Breast mass in male [N63.0] 10/02/2019 Encounter Status:Closed by TYSON RUDOLPH on 10/11/23 Normal [facility] TSH SerPl-aCncon 10-09-2023 TSH Qn 0.940 m[IU]/L Normal 0.270-4.200 [facility] Comment on above: Order Comment: Speci men Type: BLOOD SPECIMENOrdering Facility: [facility] Address: [address] [place] [address] Performed By: #### 3 016-3 ####[facility] LABCLWILBUR [id number] [address] [place] [id number] [id number] [facility] CNOVon 08-17-2023 CNOV Office Visit (UCWSTR ) KEATON AGUILA ([id number]) 1965 M Date Time Provider Department 08/17/23 12:45 PM HAYDER SANTACRUZ [facility] During your visit today, we recorded the following information about you: Temperature Pulse Respiration Blood pressure 97.4 degrees 62/minute 16/minute 120/80 Weight 97 kg Hayder Santacruz, 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 Duration of symptoms 1 day. Associated symptoms nasal congestion cough fatigue body aches. Does have transient chills. No known sick contacts. 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 Presents today for evaluation. Denies any current discomfort. Does have mild pain with coughing. States history of bronchitis this feels similar. Does have history of asthma with COPD. Denies any fever productive cough chest pain shortness of breath pleuritic pain hemoptysis nausea vomiting abdominal pain change in bowel or bladder habits. Past medical history prescription medication use and allergies reviewed. .Patient presents with: Cough: x1Days PAST MEDICAL HISTORY Diagnosis Date Asthma with COPD Atrial fibrillation (HCC) ablation 03/13/13 Cervical arthritis 04/17/2017 Cervical radiculopathy 04/17/2017 Cervicothoracic somatic dysfunction 07/31/2011 Depression Elevated prostate specific antigen (PSA) Esophageal reflux Fatty liver disease, nonalcoholic Gallbladder polyp 10/2017 2 mm Hyperlipidemia LDL goal < 100 01/01/2011 Hypertension Hypothyroidism Mild intermittent asthma without complication 08/27/2015 Osteoarthrosis, unspecified whether generalized or localized, other specified sites SERONEGATIVE Other and unspecified hyperlipidemia Peripheral vascular disease (HCC) Reactive depression 03/10/2016 Sarcoidosis Sleep apnea 01/01/2011 C-PAP Unspecified asthma(493.90) Unspecified hypothyroidism PAST SURGICAL HISTORY Procedure Laterality Date CATHETER ABLATION, INTRACARDIAC 03/13/13 atrial fibrillation COLONOSCOPY FLX DX W/COLLJ SPEC WHEN PFRMD 10/10/2018 Colonoscopy ESOPHAGOGASTRODUODENOSCOPY TRANSORAL DIAGNOSTIC 10/10/2018 EGD PAST SURGICAL HISTORY OF biopsy- sarcoidosis PAST SURGICAL HISTORY OF sinus polypectomy SEPTOPLASTY 2013 with polypectomy UMBILICAL HERNIA REPAIR 5 OR OLDER 2013 ALLERGIES Prozac [Fluoxetine Hcl] and Seasonal Allergies MEDICATIONS budesonide-formoterol (SYMBICORT) 160-4.5 mcg/actuation inhaler Inhale 2 Puffs as instructed two times a day. levothyroxine (SYNTHROID) 100 mcg tablet Take 1 tablet by mouth once daily. Take on empty stomach. For thyroid albuterol HFA (PROAIR HFA) 90 mcg/actuation inhaler Inhale 2 Puffs as instructed every 4 hours as needed. cetirizine (ZYRTEC) 10 mg tablet Take 1 tablet by mouth once daily. pravastatin (PRAVACHOL) 20 mg tablet TAKE 1 TABLET BY MOUTH EVERYDAY AT BEDTIME lisinopril (ZESTRIL, PRINIVIL) 5 mg tablet TAKE 1 TABLET BY MOUTH EVERY DAY albuterol (PROVENTIL) 2.5 mg /3 mL (0.083 %) nebulizer solution Use 3 mL via nebulizer every 4 hours as needed for Wheezing/Shortness of Breath. Use over 5-15minutes. Nebulizer NEBULIZER FOR HOME USE. DX:J40, R06.2 CPAP Settings 7 - 20 cm H2O, suitable mask per pt preference, chin strap, head gear, humidity, tubing, lifetime supplies. G47.33 FAIZAN FAMILY HISTORY Problem Relation Age of Onset Stroke Mother Diabetes Father Lipids Father Cancer Father stomach cancer Diabetes Maternal Grandfather Diabetes Maternal Uncle None Sister Social History Tobacco Use Smoking status: Former Packs/day: 0.20 Years: 20.00 Additional pack years: 0.00 Total pack years: 4.00 Types: Cigarettes Quit date: 12/08/2012 Years since quittin.6 Smokeless tobacco: Current Types: Chew Tobacco comments: occasionally will smoke Vaping Use Vaping Use: Never used Substance Use Topics Alcohol use: Not Currently Comment: Beer on weekends Drug use: No BP 120/80 Pulse 62 Temp 36.3 ?C (97.4 ?F) Resp 16 Wt 97 kg (213 lb 12.8 oz) SpO2 98% BMI 31.57 kg/m? Review of Systems Constitutional: Positive for chills and malaise/fatigue. Negative for fever. HENT: Positive for congestion. Negative for ear discharge, ear pain, sinus pain and sore throat. Eyes: Negative for blurred vision, pain, discharge and redness. Respiratory: Positive for cough. Negative for hemoptysis, sputum production, shortness of breath, wheezing and stridor. Cardiovascular: Negative for chest pain. Gastrointestinal: Negative for abdominal pain, diarrhea, nausea and vomiting. Musculoskeletal: Positive for myalgias. Skin: Negative for itching and rash. Neurological: Negative for dizziness and headaches. Objective Physical Exam Constitutional: General: He is not in acute distress. Appear (more content not included)... Normal [facility] 07-30-2023 [facility] Telephone ([facility]) KEATON AGUILA ([id number]) 1965 M Date Time Provider Department 07/30/23 JOHN PAUL WATERS NSBTNY During your visit today, we recorded the following information about you: Rebeka Thomas 07/30/2023 10:44 AM Signed [email or web address] paperwork, being held in [employer] Allergies As of Date: 07/30/2023 Noted Allergy Reaction PROZAC (FLUOXETINE HCL) 03/10/2016 14 - Other: See Comments Comments: excessive sedation SEASONAL ALLERGIES 08/14/2016 16 - Unknown Comments: Patient does get allergy injections twice per week Date Reviewed: 06/08/2023 Reviewed by: [place], Meera MOBILE DESIGNER - Fully Assessed Reason for Visit: Received Outside Medical Records [[id number]] Prescriptions as of 08/02/2023 - budesonide-formoterol (SYMBICORT) 160-4.5 mcg/actuation inhaler Inhale 2 Puffs as instructed two times a day. - levothyroxine (SYNTHROID) 100 mcg tablet Take 1 tablet by mouth once daily. Take on empty stomach. For thyroid - albuterol HFA (PROAIR HFA) 90 mcg/actuation inhaler Inhale 2 Puffs as instructed every 4 hours as needed. - cetirizine (ZYRTEC) 10 mg tablet Take 1 tablet by mouth once daily. - pravastatin (PRAVACHOL) 20 mg tablet TAKE 1 TABLET BY MOUTH EVERYDAY AT BEDTIME - lisinopril (ZESTRIL, PRINIVIL) 5 mg tablet TAKE 1 TABLET BY MOUTH EVERY DAY - albuterol (PROVENTIL) 2.5 mg /3 mL (0.083 %) nebulizer solution Use 3 mL via nebulizer every 4 hours as needed for Wheezing/Shortness of Breath. Use over 5-15minutes. - Nebulizer NEBULIZER FOR HOME USE. DX:J40, R06.2 - CPAP Settings 7 - 20 cm H2O, suitable mask per pt preference, chin strap, head gear, humidity, tubing, lifetime supplies. G47.33 FAIZAN Problem List As Of Date 07/30/2023 Noted Resolved Acquired hypothyroidism [E03.9] 08/16/2006 Esophageal reflux [K21.9] 01/06/2008 08/27/2015 SARCOIDOSIS [D86.9] 01/06/2008 Depression [F32.A] 05/29/2009 08/27/2015 Essential Hypertension, Benign [I10] 03/19/2010 08/27/2015 Atrial fibrillation (HCC) [I48.91] 08/15/2010 01/27/2014 Sleep apnea [G47.30] 01/01/2011 Hyperlipidemia with target LDL less than 100 [E*01/01/2011 Cervicothoracic somatic dysfunction [M99.01] 07/31/2011 Thoracic back pain [M54.6] 11/28/2012 08/14/2016 Tobacco abuse [Z72.0] 11/28/2012 Venous insufficiency [I87.2] 01/05/2013 History of atrial fibrillation without current *01/27/2014 Mild intermittent asthma without complication [*08/27/2015 Reactive depression [F32.9] 03/10/2016 Cervical radiculopathy [M54.12] 04/17/2017 Cervical arthritis (HCC) [M47.812] 04/17/2017 Screening for colon cancer [Z12.11] 09/16/2018 Abdominal pain [R10.9] 09/16/2018 GERD with esophagitis [K21.00] 12/27/2018 Renal stone [N20.0] 10/02/2019 Breast mass in male [N63.0] 10/02/2019 Encounter Status:Closed by REBEKA THOMAS on 08/02/23 [facility] KEATON AGUILA ([id number]) 1965 M Date Time Provider Department 06/15/23 DMITRY CORONADO During your visit today, we recorded the following information about you: Dmitry Coronado APRN.CNP 06/15/2023 11:41 AM Signed Please let the patient know that his TSH is continuing to be too suppressed but improved. Decrease dose to 100 mcg daily, repeat TSH in 2 months. The following approved medication requests have been transmitted electronically. Requested Prescriptions Signed Prescriptions Disp Refills levothyroxine (SYNTHROID) 100 mcg tablet 30 tablet 2 Sig: Take 1 tablet by mouth once daily. Take on empty stomach. For thyroid Authorizing Provider: DMITRY CORONADO APRN.CNP Laughery, Lori, LPN 06/15/2023 11:47 AM Signed Phoned patient and VM left for him to return call to review results and recommendations with him. Mireya Najera RN 06/15/2023 11:52 AM Signed Patient notified of results and provider's instructions. Patient verbalizes understanding. Mireya Najera RN Allergies As of Date: 06/15/2023 Noted Allergy Reaction PROZAC (FLUOXETINE HCL) 03/10/2016 14 - Other: See Comments Comments: excessive sedation SEASONAL ALLERGIES 08/14/2016 16 - Unknown Comments: Patient does get allergy injections twice per week Date Reviewed: 06/08/2023 Reviewed by: Meera Villanueva LPN - Fully Assessed Reason for Visit: Results [95] Visit Diagnosis:Acquired hypothyroidism [E03.9] Order(s):levothyroxine (SYNTHROID) 100 mcg tabletTake 1 tablet by mouth once daily. Take on empty stomach. For thyroidDisp: 30 tabletRfl: 2 TSH BLD [SQTS] Order #: [id number] FUTURE Prescriptions as of 06/15/2023 - levothyroxine (SYNTHROID) 100 mcg tablet Take 1 tablet by mouth once daily. Take on empty stomach. For thyroid - predniSONE (DELTASONE) 10 mg tablet Take 4 tabs daily for 3 days, then 2 tabs daily for 3 days, then 1 tab daily for 3 days with food. - cetirizine (ZYRTEC) 10 mg tablet Take 1 tablet by mouth once daily. - pravastatin (PRAVACHOL) 20 mg tablet TAKE 1 TABLET BY MOUTH EVERYDAY AT BEDTIME - lisinopril (ZESTRIL, PRINIVIL) 5 mg tablet TAKE 1 TABLET BY MOUTH EVERY DAY - SYMBICORT 160-4.5 mcg/actuation inhaler INHALE 1 PUFF BY MOUTH INSTRUCTED TWICE A DAY - albuterol HFA (PROAIR HFA) 90 mcg/actuation inhaler Inhale 2 Puffs as instructed every 4 hours as needed. - albuterol (PROVENTIL) 2.5 mg /3 mL (0.083 %) nebulizer solution Use 3 mL via nebulizer every 4 hours as needed for Wheezing/Shortness of Breath. Use over 5-15minutes. - Nebulizer NEBULIZER FOR HOME USE. DX:J40, R06.2 - CPAP Settings 7 - 20 cm H2O, suitable mask per pt preference, chin strap, head gear, humidity, tubing, lifetime supplies. G47.33 FAIZAN Problem List As Of Date 06/15/2023 Noted Resolved Acquired hypothyroidism [E03.9] 08/16/2006 Esophageal reflux [K21.9] 01/06/2008 08/27/2015 SARCOIDOSIS [D86.9] 01/06/2008 Depression [F32.A] 05/29/2009 08/27/2015 Essential Hypertension, Benign [I10] 03/19/2010 08/27/2015 Atrial fibrillation (HCC) [I48.91] 08/15/2010 01/27/2014 Sleep apnea [G47.30] 01/01/2011 Hyperlipidemia with target LDL less than 100 [E*01/01/2011 Cervicothoracic somatic dysfunction [M99.01] 07/31/2011 Thoracic back pain [M54.6] 11/28/2012 08/14/2016 Tobacco abuse [Z72.0] 11/28/2012 Venous insufficiency [I87.2] 01/05/2013 History of atrial fibrillation without current *01/27/2014 Mild intermittent asthma without complication [*08/27/2015 Reactive depression [F32.9] 03/10/2016 Cervical radiculopathy [M54.12] 04/17/2017 Cervical arthritis (HCC) [M47.812] 04/17/2017 Screening for colon cancer [Z12.11] 09/16/2018 Abdominal pain [R10.9] 09/16/2018 GERD with esophagitis [K21.00] 12/27/2018 Renal stone [N20.0] 10/02/2019 Breast mass in male [N63.0] 10/02/2019 Prescriptions ordered this encounter Disp Refills Start End LEVOTHYROXINE 100 MCG TABLET 30 t* 2 06/15/2023 Route: ORAL Sig: Take 1 tablet by mouth once daily. Take on empty stomach. For thyroid Medications Discontinued During This Encounter Prescriptions - levothyroxine (SYNTHROID) 112 mcg tablet (Discontinued) Take 1 tablet by mouth once daily. Take on empty stomach. For thyroid Encounter Status:Closed by MIREYA NAJERA on 06/15/23 Normal [facility] TSH SerPl-aCncon 06-14-2023 TSH Qn 0.177 m[IU]/L Low 0.270-4.200 [facility] Comment on above: Order Comment: Speci men Type: BLOOD SPECIMENOrdering Facility: [facility] Address: [address] [place] [id number] Performed By: #### 3 [id number] ####[facility] BRENDA [id number] [facility] [id number] [place] [address] [place] CNOVon 06-08-2023 CNOV Office Visit (WSTR ) AYLAKEATON THOMPSON ([id number]) 1965 M Date Time Provider Department 06/08/23 3:30 PM ANGY ALCANTAR [facility] During your visit today, we recorded the following information about you: Temperature Pulse Respiration Blood pressure 98.4 degrees 69/minute 16/minute 140/80 Weight 93.7 kg Angy Alcantar APRN.MUCK FARMER 06/08/2023 3:51 PM Signed Subjective Came in with complaints of itching rash that he has been dealing with on and off for 4 years. Patient says it started on the left side in several different areas and now is on the right side. Patient says he scratches it so hard he draws blood. Patient says it wakes him up every few hours at night. Patient denies any numbness tingling or loss of feeling. Patient denies actually seeing any rash just feels like there is 1. The history is provided by the patient. No language instructor was used. Rash Review of Systems Constitutional: Negative. Skin: Positive for itching and rash. Objective Physical Exam Constitutional: Appearance: Normal appearance. Pulmonary: Effort: Pulmonary effort is normal. Musculoskeletal: Arms: Comments: Patient has what appears to be scratch agustin in the area marked above. No rash noted. Neurological: Mental Status: He is alert. PAST MEDICAL HISTORY Diagnosis Date Asthma with COPD (HCC) Atrial fibrillation (HCC) ablation 03/13/13 Cervical arthritis 04/17/2017 Cervical radiculopathy 04/17/2017 Cervicothoracic somatic dysfunction 07/31/2011 Depression Elevated prostate specific antigen (PSA) Esophageal reflux Fatty liver disease, nonalcoholic Gallbladder polyp 10/2017 2 mm Hyperlipidemia LDL goal < 100 01/01/2011 Hypertension Hypothyroidism Mild intermittent asthma without complication 08/27/2015 Osteoarthrosis, unspecified whether generalized or localized, other specified sites SERONEGATIVE Other and unspecified hyperlipidemia Peripheral vascular disease (HCC) Reactive depression 03/10/2016 Sarcoidosis Sleep apnea 01/01/2011 C-PAP Unspecified asthma(493.90) Unspecified hypothyroidism PAST SURGICAL HISTORY Procedure Laterality Date CATHETER ABLATION, INTRACARDIAC 03/13/13 atrial fibrillation COLONOSCOPY FLX DX W/COLLJ SPEC WHEN PFRMD 10/10/2018 Colonoscopy ESOPHAGOGASTRODUODENOSCOPY TRANSORAL DIAGNOSTIC 10/10/2018 EGD PAST SURGICAL HISTORY OF biopsy- sarcoidosis PAST SURGICAL HISTORY OF sinus polypectomy SEPTOPLASTY 2013 with polypectomy UMBILICAL HERNIA REPAIR 5 OR OLDER 2013 ALLERGIES Prozac [Fluoxetine Hcl] and Seasonal Allergies MEDICATIONS levothyroxine (SYNTHROID) 112 mcg tablet Take 1 tablet by mouth once daily. Take on empty stomach. For thyroid cetirizine (ZYRTEC) 10 mg tablet Take 1 tablet by mouth once daily. pravastatin (PRAVACHOL) 20 mg tablet TAKE 1 TABLET BY MOUTH EVERYDAY AT BEDTIME lisinopril (ZESTRIL, PRINIVIL) 5 mg tablet TAKE 1 TABLET BY MOUTH EVERY DAY SYMBICORT 160-4.5 mcg/actuation inhaler INHALE 1 PUFF BY MOUTH INSTRUCTED TWICE A DAY (Patient taking differently: Uses one puff inhalation once a week) albuterol HFA (PROAIR HFA) 90 mcg/actuation inhaler Inhale 2 Puffs as instructed every 4 hours as needed. albuterol (PROVENTIL) 2.5 mg /3 mL (0.083 %) nebulizer solution Use 3 mL via nebulizer every 4 hours as needed for Wheezing/Shortness of Breath. Use over 5-15minutes. Nebulizer NEBULIZER FOR HOME USE. DX:J40, R06.2 CPAP Settings 7 - 20 cm H2O, suitable mask per pt preference, chin strap, head gear, humidity, tubing, lifetime supplies. G47.33 FAIZAN predniSONE (DELTASONE) 10 mg tablet Take 4 tabs daily for 3 days, then 2 tabs daily for 3 days, then 1 tab daily for 3 days with food. FAMILY HISTORY Problem Relation Age of Onset Stroke Mother Diabetes Father Lipids Father Cancer Father stomach cancer Diabetes Maternal Grandfather Diabetes Maternal Uncle None Sister Social History Tobacco Use Smoking status: Former Packs/day: 0.20 Years: 20.00 Additional pack years: 0.00 Total pack years: 4.00 Types: Cigarettes Quit date: 12/08/2012 Years since quittin.5 Smokeless tobacco: Current Types: Chew Tobacco comments: occasionally will smoke Vaping Use Vaping Use: Never used Substance Use Topics Alcohol use: Not Currently Comment: Beer on weekends Drug use: No ASSESSMENT/PLAN: 1. Itching - ICD9: 698.9, ICD10: L29.9 - PREDNISONE 10 MG TABLET Was given prednisone to see if this would help alleviate the itch. Patient was also instructed to follow-up with dermatology. Patient will make an appointment and follow-up with dermatology. Patient was okay with this care plan. Angy Alcantar APRN.MUCK FARMER Allergies As of Date: 06/08/2023 Noted Allergy Reaction PROZAC (FLUOXETINE HCL) 03/10/2016 14 - Other: See Comments Comments: excessive sedation SEASONAL ALLERGIES 08/14/2016 (more content not included)... Normal [facility] UA DIP, URINE (POC)on 2022 BILIRUBIN UA (POCT) Negative Negative [facility] CLARITY UA (POCT) Clear [facility] COLOR UA (POCT) Light yellow [facility] GLUCOSE UA (POCT) Negative Negative mg/dL [facility] HEMOGLOBIN/BLOOD UA (POCT) Trace-intact Abnormal Negative [facility] KETONE UA (POCT) Negative Negative mg/dL [facility] LEUKOCYTES UA (POCT) Negative Negative [facility] NITRITE UA (POCT) Negative Negative [facility] PH UA (POCT) 7.0 4.5 - 8.0 [facility] Protein Ql (U) Negative Negative mg/dL [facility] SPECIFIC GRAVITY UA (POCT) 1.020 1.005 - 1.030 [facility] UROBILINOGEN UA (POCT) 0.2 E.U./dL Normal E.U./dL [facility] UA DIP, URINE (POC)on 2021 BILIRUBIN UA (POCT) Negative Negative [facility] CLARITY UA (POCT) Clear [facility] COLOR UA (POCT) Yellow [facility] GLUCOSE UA (POCT) Negative Negative mg/dL [facility] HEMOGLOBIN/BLOOD UA (POCT) Moderate Abnormal Negative [facility] KETONE UA (POCT) 15 mg/dL Abnormal Negative mg/dL [facility] LEUKOCYTES UA (POCT) Negative Negative [facility] NITRITE UA (POCT) Negative Negative [facility] PH UA (POCT) 5.5 4.5 - 8.0 [facility] Protein Ql (U) Negative Negative mg/dL [facility] SPECIFIC GRAVITY UA (POCT) 1.025 1.005 - 1.030 [facility] UROBILINOGEN UA (POCT) 0.2 E.U./dL Normal E.U./dL [facility] No Panel Informationon 05-16 Radiology Study observation (narrative) [facility] XR Elbow - left AP and Later prashant 05-16-2021 IMPRESSION: No acute findings. Electrocardiograph Technician: LENKA Transcribe Date/Time: May 16 2021 6:17P Dictated by : CHRIS PRAKASH MD This examination was interpreted and the report reviewed and electronically signed by: CHRIS PRAKASH MD on May 16 2021 6:19PM [facility] DIVISION OF RADIOLOGY * * *Final Report* * * DATE OF EXAM: May 16 2021 5:03PM WOX [id number] - XR ELBOW 2V AP/LAT LT / PROCEDURE REASON: multiple diagnoses * * * * Physician Interpretation * * * * XR ELBOW 2V AP/LAT LT CLINICAL HISTORY: Pain in left elbow for 2 years. No injury. COMPARISON: None. RESULT: No acute fracture. No significant joint space narrowing. No joint effusion. Enthesophyte at the triceps insertion. DIVISION OF RADIOLOGY Provider, [facility] - 05/16/2021 * * *Final Report* * * DATE OF EXAM: May 16 2021 5:03PM WOX 5322 - XR ELBOW 2V AP/LAT LT / PROCEDURE REASON: multiple diagnoses * * * * Physician Interpretation * * * * XR ELBOW 2V AP/LAT LT CLINICAL HISTORY: Pain in left elbow for 2 years. No injury. COMPARISON: None. RESULT: No acute fracture. No significant joint space narrowing. No joint effusion. Enthesophyte at the triceps insertion. IMPRESSION IMPRESSION: No acute findings. Electrocardiograph Technician: LENKA Transcribe Date/Time: May 16 2021 6:17P Dictated by : CHRIS PRAKASH MD This examination was interpreted and the report reviewed and electronically signed by: CHRIS PRAKASH MD on May 16 2021 6:19PM EST [facility] XR Knee - left 4 Viewson IMPRESSION: No bone or articular disease identified. Electrocardiograph Technician: LENKA Transcribe Date/Time: May 16 2021 7:42P Dictated by : ANNE-MARIE LEARY MD This examination was interpreted and the report reviewed and electronically signed by: ANNE-MARIE LEARY MD on May 16 2021 7:44PM EST DIVISION OF RADIOLOGY * * *Final Report* * * DATE OF EXAM: May 16 2021 5:03PM WOX 5202 - XR KNEE 4V AP/PA BOTH+LAT/SHADI LT / PROCEDURE REASON: Medial epicondylitis of left elbow * * * * Physician Interpretation * * * * HISTORY: pt states pain in left knee for 6 months feels like its behind the left patella no inj. Medial epicondylitis of left elbow . TECHNIQUE: XR KNEE 4V AP/PA BOTH+LAT/SHADI LT Laterality: LEFT Number of different views (projections): 4 COMPARISON: None RESULT: No gross effusion. No fracture or osteochondral defect identified. Joint spaces are well-maintained. Remote ossification in the distal aspect of the patella tendon. DIVISION OF RADIOLOGY [facility] * * *Final Report* * * DATE OF EXAM: May 16 2021 5:03PM WOX 5202 - XR KNEE 4V AP/PA BOTH+LAT/SHADI LT / PROCEDURE REASON: Medial epicondylitis of left elbow * * * * Physician Interpretation * * * * HISTORY: pt states pain in left knee for 6 months feels like its behind the left patella no inj. Medial epicondylitis of left elbow . TECHNIQUE: XR KNEE 4V AP/PA BOTH+LAT/SHADI LT Laterality: LEFT Number of different views (projections): 4 COMPARISON: None RESULT: No gross effusion. No fracture or osteochondral defect identified. Joint spaces are well-maintained. Remote ossification in the distal aspect of the patella tendon. IMPRESSION IMPRESSION: No bone or articular disease identified. Electrocardiograph Technician: LENKA Transcribe Date/Time: May 16 2021 7:42P Dictated by : ANNE-MARIE LEARY MD This examination was interpreted and the report reviewed and electronically signed by: ANNE-MARIE LEARY MD on May 16 2021 7:44PM EST [facility] XR Knee - left 4 ViewsOrdere d By: [facility] Provider on 05-16-2021 [facility] ANES Cherry 10-10-2018 ANES POST HNO ID: [id number] Author: Herman Kaufman Service: Anesthesiology Author Type: Anesthesiologist Type: Anesthesia PostOp Filed: 10/10/2018 12:42 PM Note Text: POST ANESTHESIA EVALUATION NOTE SERVICE DATE: 10/10/2018 SERVICE TIME: : 1965 Vitals: 10/10/18 1005 10/10/18 1135 Temp: 36.6 ?C (97.9 ?F) 36.7 ?C (98.1 ?F) 10/10/18 1005 10/10/18 1135 10/10/18 1145 10/10/18 1200 BP: 171/94 136/77 125/71 137/76 10/10/18 1005 10/10/18 1135 10/10/18 1145 10/10/18 1200 Pulse: 85 82 78 73 10/10/18 1005 10/10/18 1135 10/10/18 1145 10/10/18 1200 Resp: 16 16 16 16 10/10/18 1005 10/10/18 1135 10/10/18 1145 10/10/18 1200 SpO2: 98% 96% 97% 96% Validated Vital Signs: Yes POST ANES STATUS: No apparent anesthetic complications. The patient is appropriately hydrated with stable respiratory and cardiovascular status. Patient has safe and adequate airway control. The patient has appropriate pain relief and no significant post operative nausea or vomiting. The patient has achieved baseline mental status. Intra-Operative Events: No Significant Anesthesia Events Further assessment by Anesthesia Service: None Other Remarks: SIGNATURE: Herman Kaufman MD PATIENT NAME: Keaton Aguila DATE: October 10, 2018 TIME: 12:41 PM PAGER/CONTACT #: anesthesia [facility] ANES PREOPon 10-10-2018 ANES PREOP HNO ID: [id number] Author: Herman Kaufman Service: Anesthesiology Author Type: Anesthesiologist Type: Anesthesia PreOp Filed: 10/10/2018 10:46 AM Note Text: ANESTHESIOLOGY DAY OF SURGERY NOTE SERVICE DATE: 10/10/2018 SERVICE TIME: 10.48 : 1965 Procedure(s) (LRB): COLONOSCOPY (N/A) EGD (N/A) Surgeon(s): Selma Otero Estimated body mass index is 31.75 kg/m? as calculated from the following: Height as of this encounter: 175.3 cm (5' 9 ). Weight as of this encounter: 97.5 kg (215 lb). Most recent hematocrit and potassium results: Hematocrit 45.2 10/26/2017 Potassium 4.0 10/26/2017 ANES DOS/PREOP NOTE: Vitals: 10/10/18 1005 BP: 171/94 Pulse: 85 Resp: 16 Temp: 36.6 ?C (97.9 ?F) TempSrc: Temporal Artery SpO2: 98% Weight: 97.5 kg (215 lb) Height: 175.3 cm (5' 9 ) ACTIVE PROBLEM LIST Acquired Hypothyroidism Sarcoidosis Sleep Apnea Hyperlipidemia With Target Ldl Less Than 100 Cervicothoracic Somatic Dysfunction Tobacco Abuse Venous Insufficiency History of Atrial Fibrillation Without Current Medication Mild Intermittent Asthma Without Complication Reactive Depression Cervical Radiculopathy Cervical Arthritis Screening for Colon Cancer Abdominal Pain PAST MEDICAL HISTORY Diagnosis Date - Atrial fibrillation (HCC) ablation 03/13/13 - Cervical arthritis 04/17/2017 - Cervical radiculopathy 04/17/2017 - Cervicothoracic somatic dysfunction 07/31/2011 - Depression - Esophageal reflux - Fatty liver disease, nonalcoholic - Gallbladder polyp 10/2017 2 mm - Hyperlipidemia LDL goal < 100 01/01/2011 - Hypertension - Mild intermittent asthma without complication 08/27/2015 - Osteoarthrosis, unspecified whether generalized or localized, other specified sites SERONEGATIVE - Other and unspecified hyperlipidemia - Peripheral vascular disease (HCC) - Reactive depression 03/10/2016 - Sarcoidosis - Sleep apnea 01/01/2011 C-PAP - Unspecified asthma(493.90) - Unspecified hypothyroidism PAST SURGICAL HISTORY Procedure Laterality Date - CATHETER ABLATION, INTRACARDIAC 03/13/13 atrial fibrillation - PAST SURGICAL HISTORY OF biopsy- sarcoidosis - PAST SURGICAL HISTORY OF sinus polypectomy - SEPTOPLASTY 2013 with polypectomy - UMBILICAL HERNIA REPAIR 5 OR OLDER 2013 FAMILY HISTORY Problem Relation Age of Onset - Stroke Mother - Diabetes Father - Lipids Father - Cancer Father stomach cancer - Diabetes Maternal Grandfather - Diabetes Maternal Uncle - None Sister Social History: Social History Substance Use Topics - Smoking status: Current Every Day Smoker Packs/day: 0.20 Years: 20.00 Types: Cigarettes Last attempt to quit: 12/20/2012 - Smokeless tobacco: Current User Types: Chew Comment: 3 cig per day average - Alcohol use 9.0 oz/week 6 Cans of Beer (12oz) per week Comment: Beer on weekends No current facility-administered medications on file prior to encounter. Current Outpatient Prescriptions on File Prior to Encounter: pravastatin (PRAVACHOL) 20 mg tablet Take 1 tablet by mouth daily at bedtime. levothyroxine (SYNTHROID) 137 mcg tablet One tablet daily for 6 days of the week. Current Facility-Administered Medications: NaCl 0.9% iv infusion 30 mL/hr INTRAVENOUS CONTINUOUS Selma Otero Last Rate: 30 mL/hr at 10/10/18 1010 30 mL/hr at 10/10/18 1010 Allergies: ALLERGIES Allergen Reactions - Prozac [Fluoxetine * Other: See Comments excessive sedation - Seasonal Allergies Unknown Patient does get allergy injections twice per week DOS EXAM: Adequate NPO status: Yes Anesthetic risks, benefits, alternatives, personnel and consent discussed: Yes Patient agrees to proceed: Yes Previous Anesthesia: No history of adverse event. Airway Assessment: MP 2; Neck ROM: Full ROM without neurologic symptoms; Airway Evaluation: No significant abnormalities Symptoms of Sleep Apnea: None Dentition: Poor dentition Additional Physical Exam: Lungs: Patient health status unchanged since recent history and physical. See history and physical for exam findings. Lungs clear to auscultation. Good diaphragmatic excursion. Cardiac: Patient health status unchanged since recent history and physical. See history and physical for exam findings. normal S1 and S2; no rubs, no murmurs, and no gallops Additional Pertinent Findings: N/A Blood Products: Not anticipated for this procedure. Anesthetic Plan: MAC with Sedation Pain Management Plan: Parenteral or Oral ASA Class: 3 Other Medical Problems: None Chronic Beta Lana medication administered within 24 hours: N/A I have interviewed and examined the patient. I have reviewed the medical record and/or the pre-anesthesia evaluation, pertinent labs, and test results. Significant changes in the patient's condition since the History and Physical, not otherwise documented in primary service progress notes: No This contains updated information obtained within 48 hours of Surgery/Procedure. SIGNATURE: Herman Kaufman MD PATIENT NAME: Keaton Aguila DATE: October 10, 2018 TIME: 10:46 AM CSN: [id number] Normal [facility] HISTORY PHYSICALon 9 HISTORY PHYSICAL HNO ID: [id number] Author: Selma Jo Ann VermaShanna Service: General Surgery Author Type: Physician Type: HANDP Filed: 10/10/2018 9:50 AM Note Text: HISTORY AND PHYSICAL ? Keaton Aguila 1965 ? REFERRING PHYSICIAN: Nick Lemons III, MD ? CHIEF COMPLAINT: Consult (colonoscopy) ? HPI: The patient is a 53 year old male referred for endoscopy. Keaton notes no history of colon complaints. He denies any change in bowel habits, weight changes, blood in stools, black tarry stools. Patient does note acid reflux, tobacco use, and a 1-year history of right upper quadrant discomfort and pressure. Denies any particular aggravating factors and denies radiation of pain. Alleviating factors include laying down and stretching flat. Patient had a right upper quadrant ultrasound in October 2017 which showed a possible gallbladder polyp. He notes a family history of stomach cancer-father. Keaton has not undergone prior endoscopy. ? Patient's past medical history is significant for hypertension, hyperlipidemia, sleep apnea, mild asthma, fatty liver disease, hypothyroidism. He has a past history of atrial fibrillation, had ablation for this, states no longer maintained on any anticoagulation. Still follows intermittently with Dr. Belcher but denies any current cardiac complaints. Denies problems with sedation in the past. ? Patient's blood pressure elevated at today's visit, patient notes this usually runs within normal range. He does note he is anxious about being here today and discussing the procedures. ? ? PAST MEDICAL HISTORY PAST MEDICAL HISTORY Diagnosis Date - Atrial fibrillation (HCC) ? ? ablation 03/13/13 - Cervical arthritis 04/17/2017 - Cervical radiculopathy 04/17/2017 - Cervicothoracic somatic dysfunction 07/31/2011 - Depression ? - Esophageal reflux ? - Fatty liver disease, nonalcoholic ? - Gallbladder polyp 10/2017 ? 2 mm - Hyperlipidemia LDL goal < 100 01/01/2011 - Hypertension ? - Mild intermittent asthma without complication 08/27/2015 - Osteoarthrosis, unspecified whether generalized or localized, other specified sites ? ? SERONEGATIVE - Other and unspecified hyperlipidemia ? - Peripheral vascular disease (HCC) ? - Reactive depression 03/10/2016 - Sarcoidosis ? - Sleep apnea 01/01/2011 ? C-PAP - Unspecified asthma(493.90) ? - Unspecified hypothyroidism ? ? ? PAST SURGICAL HISTORY PAST SURGICAL HISTORY Procedure Laterality Date - CATHETER ABLATION, INTRACARDIAC ? 03/13/13 ? atrial fibrillation - PAST SURGICAL HISTORY OF ? ? ? biopsy- sarcoidosis - SEPTOPLASTY ? 2013 ? with polypectomy - UMBILICAL HERNIA REPAIR 5 OR OLDER ? 2013 ? ? ? CURRENT MEDICATIONS ? Current Outpatient Prescriptions: levothyroxine (SYNTHROID) 137 mcg tablet One tablet daily for 6 days of the week. pravastatin (PRAVACHOL) 20 mg tablet Take 1 tablet by mouth daily at bedtime. levothyroxine (SYNTHROID) 137 mcg tablet Take 1 tablet by mouth once daily. multivitamin tablet Take 1 tablet by mouth once daily. (Patient not taking: Reported on 09/15/2018 ) pravastatin (PRAVACHOL) 20 mg tablet TAKE 1 TABLET BY MOUTH DAILY AT BEDTIME. ? No current facility-administered medications for this visit. ? ALLERGIES: Prozac [Fluoxetine Hcl]; Seasonal Allergies ? PERSONAL HISTORY: SOCIAL HISTORY Social History Marital status: Spouse name: Adeline Years of education: 13 Number of children: 2 ? Occupational History Occupation Employer Comment [employer] ? Social History Main Topics Smoking status: Former Smoker Packs/day: 0.20 Years: 20.00 Types: Cigarettes Quit date: 12/20/2012 Smokeless tobacco: Current User Types: Chew Comment: chews 1 can every 3 days Alcohol use: Yes 9.0 oz/week Cans of Beer (12oz): 6 per week Comment: Beer on weekends Drug use: No ? FAMILY HISTORY: FAMILY HISTORY FAMILY HISTORY Problem Relation Age of Onset - Stroke Mother ? - Diabetes Father ? - Lipids Father ? - Cancer Father ? ? stomach cancer - Diabetes Maternal Grandfather ? - Diabetes Maternal Uncle ? - None Sister ? ? ? REVIEW OF SYMPTOMS: The review of systems data was entered by the nurse and reviewed by me ? Nursing Notes: Cathryn Morfin LPN 09/16/2018 9:16 AM Signed REVIEW OF SYSTEMS: General: The patient NOTES fatigue, denies weight loss, denies weight gain, denies feeling hot, and denies feelings of cold. Eyes: The patient denies glaucoma, denies eye injury/surgery, wears glasses or contacts. Ear/Nose/Throat: The patient NOTES allergies, denies hayfever, NOTES ear infections, and denies bloody noses. Cardiovascular: The patient denies chest pain, denies heart disease, NOTES high blood pressure,denies cardiac stent, denies prior heart attack, NOTES irregular heart beat, NOTES high cholesterol, denies poor circulation, denies heart failure, other cardiac issues, NOTES claudication, denies cold feet, denies peripheral arterial stent. Respiratory: The patient denies tuberculosis, NOTES pneumonia, NOTES frequent cough, NOTES pulmonary embolism, denies shortness of breath, and denies coughing up blood. Gastrointestinal: The patient denies difficulty swallowing, denies acid reflux, denies ulcers, denies vomiting, denies jaundice/hepatitis, NOTES gallbladder problems, denies black or tarry stools, denies hemorrhoids, denies bleeding from rectum, denies diverticulitis, denies constipation, denies diarrhea, denies loss of stool control, and NOTES hernias. Kidney/Bladder: The patient NOTES kidney stones, denies urine infections, and denies bloody urine. Skin: The patient denies a history of skin cancer, denies bleeding/changing moles, and denies a history of skin rash. Neurologic: The patient denies a history of epilepsy/convulsions, denies headaches, denies head/spinal injuries, and denies stroke/TIA. Psychiatric: The patient denies psychiatric medications, NOTES depression, and denies voices, denies substance abuse. Endocrine: The patient NOTES thyroid disorders, denies diabetes, and denies hormonal problems. Hematologic: The patient denies a history of bruising, denies bleeding, and denies anemia, denies blood clots. Infections: The patient denies a history of measles and mumps, denies rheumatic fever, and denies sexually transmitted diseases. Musculoskeletal: The patient denies back pain/injury, denies back problems, denies sciatica, denies knee/foot trouble, NOTES arthritis, or denies gout. ? ? When was patient's last Mammogram screening? N/A ? Last Colonoscopy: None ? Cathryn Morfin LPN I have confirmed and edited as necessary, the PFSH and ROS obtained by others. ? PHYSICAL EXAMINATION: ? General: The patient is 53 year old male, well nourished, well hydrated in no acute distress. The patient is oriented to time, place, and person. ? VITALS: Blood pressure 170/110, pulse 88, temperature 37.2 ?C (98.9 ?F), height 175.3 cm (5' 9 ), weight 97.7 kg (215 lb 6.4 oz), SpO2 98 %. Body mass index is 31.81 kg/m?. ? HEENT: Normal cephalic, ataumatic, pupils are equally round, sclera are anicteric, mucous membranes are moist, oropharynx is clear. Neck has no masses, asymmetry or lymphadenopathy. ? Respiratory: Clear to auscultation and percussion. Normal respiratory excursion and pattern. ? Cardiac: Examination is regular rate and rhythm. ? Abdominal exam: Soft, nontender, with no palpable masses. No hepatosplenomegaly. No palpable hernias. ? Rectal exam: exam deferred ? Extremities: no clubbing, cyanosis or edema. No adenopathy. ? Other: ? LABORATORY VALUES: As Noted ? RADIOLOGIC STUDIES: As Noted ? ? Assessment IMPRESSION: Encounter for screening colonoscopy. GERD, tobacco use, RUQ pain, family history of stomach cancer. Concern for PUD vs gallbladder disease. ? PLAN: I have reviewed my findings with the surgeon. Will plan for upper and lower endoscopy with Monitored Anesthetic Care. Will also obtain updated right upper quadrant ultrasound. We discussed the risks and benefits of the planned endoscopy. I have informed the patient that complications can occur including failure to complete the endoscopy and perforation. The patient had the opportunity to ask questions concerning the planned endoscopy. My staff has also explained the procedure to the patient in understandable terms and has given the patient printed material concerning the procedure. The patient freely consents to surgery. ? I plan to use golytely bowel preparation for endoscopy ? I plan for monitored anesthetic care. ? Elevated blood pressure at today's visit-follow up with primary care ? Diagnoses: (R10.11) Right upper quadrant pain (primary encounter diagnosis) (K82.4) Gallbladder polyp (Z72.0) Tobacco use (Z12.11) Encounter for screening for malignant neoplasm of colon (Z80.0) Family history- stomach cancer ? My findings have been communicated to Dr. Lemons via shared medical record. This note will be forwarded to Dr. Nick Lemons III MD. Return to Clinic: The patient is instructed to follow-up with me 1 week post operatively. ? ? _ Toyin Brice PA-C [facility] NURSING PROGon 10-10-2018 Protein mass conc HNO ID: [id number] Author: Vonda FunesRn) YINA Waggoner Service: Nursing Author Type: Registered Nurse Type: Nursing Progress Note Filed: 10/10/2018 10:12 AM Note Text: Nursing Progress Note Patient Name: Keaton Aguila Patient Location: [facility] pt ready for OR, needs to sign consent, call light in reach, called to bedside, pt relates had 2 liquid brown stools this am, MD aware and will still proceed. This note was completed by: Vonda Waggoner RN [facility] PT EDon 10-10-2018 PT ED HNO ID: [id number] Author: Sampson FunesRn) YINA Ibrahim Service: Nursing Author Type: Registered Nurse Type: Patient Education Filed: 10/10/2018 12:40 PM Note Text: POST OP LEARNING RESPONSE INSTRUCTION PROVIDED TO: Patient and family member METHOD OF INSTRUCTION: Written instruction - handouts Verbal instruction PATIENT / FAMILY RESPONSE: Verbalizes understanding of: POST-PROCEDURE INSTRUCTIONS-Correct actions to take to reduce post procedure complications FOLLOW-UP PLAN: Patient instructed to call with any further issues SUPPLEMENTAL MATERIAL: None REFERRAL (RECOMMENDATION): None Electronically Signed By: Sampson Ibrahim RN In Department: [facility] ENDOSCOPY [facility] PT ED HNO ID: [id number] Author: Vonda FunesRn) YINA Waggoner Service: Nursing Author Type: Registered Nurse Type: Patient Education Filed: 10/10/2018 10:12 AM Note Text: PRE OP LEARNING ASSESSMENT PROCEDURE/SURGERY: SURGERY: Colonoscopy and EGD READINESS TO LEARN COGNITIVE ABILITY: Alert and oriented MOTIVATION TO LEARN: Interested FAMILY SUPPORT: High - Very involved in pt care PATIENT LEARNS BEST BY: Written Instruction - Hand-outs Verbal Instruction FACTORS AFFECTING LEARNING: None PHYSICAL LIMITATIONS AFFECTING LEARNING: None Electronically Signed By: Vonda Waggoner RN In Department: [facility] ENDOSCOPY Normal [facility] SURGICAL PATHOLOGYon 019 SURGICAL PATHOLOGY Specimen originated from [facility] Specimen #: [id number] Submitting Physician: SELMA OTERO MD FINAL DIAGNOSIS 1. Stomach, biopsy (A) - Gastric antral-type mucosa with no diagnostic alteration. - Negative for H. pylori organisms on routine stain. 2. Esophagus, distal, biopsy (B) - Esophageal squamous and inflamed gastric cardia-type mucosa and reactive epithelial changes, consistent with reflux esophagitis. - Negative for intestinal metaplasia or dysplasia. 3. Esophagus, mid, biopsy (C) - Esophageal squamous mucosa with no diagnostic alteration. - No evidence of eosinophilic esophagitis. 4. Colon, sigmoid, polypectomy (D) - Tubular adenoma. 5. Rectum, polypectomy (E) - Hyperplastic polyp. DAKSHA/sharath 10/12/2018 Reji Glynn M.D. (Electronic Signature) SPECIMEN SUBMITTED A: GASTRIC, BIOPSY B: DISTAL ESOPHAGUS C: MID ESOPHAGUS D: SIGMOID COLON POLYP E: RECTAL POLYP CLINICAL DATA A-R/O H PYLORI, B&C- ABDOMINAL PAIN, D&E- SCREENING COLONOSCOPY GROSS DESCRIPTION A. Received in formalin is one piece of maguire, soft tissue measuring 0.3 x 0.2 x 0.2 cm. Totally submitted in one cassette. B. Received in formalin is one piece of maguire, soft tissue measuring 0.3 x 0.2 x 0.2 cm. Totally submitted in one cassette. C. Received in formalin are two pieces of maguire, soft tissue aggregating to 0.4 x 0.2 x 0.1 cm. Totally submitted in one cassette. D. Received in formalin is a maguire polypoid segment of tissue measuring 0.7 x 0.4 x 0.5 cm. No stalk is present. The line of resection is noted. The specimen is trisected and totally submitted in one cassette. E. Received in formalin is one piece of maguire, soft tissue measuring 0.4 x 0.2 x 0.2 cm. Totally submitted in one cassette. Gross examination performed at [facility], [address] [place] [address] 10/11/2018 2:26:19 PM Date of Report: 10/12/2018 Date of Procedure: 10/10/2018 Date of Receipt: 10/10/2018 Submitted by: SELMA OTERO MD Location: [facility] Diagnostic interpretation performed at [place] [address]. [facility] Comment on above: Performed By: #### P ATHS #### [facility] [address] [place] [address] [phone] NURSING PROGon 10-05-2018 Protein mass conc HNO ID: [id number] Author: Felicity (Rn) YINA Case Service: Nursing Author Type: Registered Nurse Type: Nursing Progress Note Filed: 10/05/2018 7:22 AM Note Text: PACC Nurse Progress Note History AND Physical: PACC Visit Date: 09/30/18 Original HANDP Date: 09/30/18 ED visit Date: N/A Outside HANDP Scanned Date: N/A Labs Within Last 6 Months: N/A Imaging Within Last 12 Months: US-right upper quadrant, 09/22/18,in epic Cardiac Testing: N/A BMI Percentile (PEDS): N/A Risk Assessment: N/A Anesthesia Review: + Gag reflex severe Narrative: FAIZAN - currently not using CPAP Asthma- mild intermittent- no inhaler in months H/o A fib treated with ablation in 2012- no issues since Sarcoidosis- told 20 + yrs ago and no issues Pre-op Considerations: N/A Chart Check: COMPLETED Felicity Case RN October 05, 2018 7:18 AM [facility] HOSPon 09-16-2018 HOSP Patient:Ayla,All en D MRN: Height:5' 9 (1.753 m) Weight:215 lb (97.523 kg) Outpatient Medications as of 10/10/18: pseudoephed/acetaminoph/diph en (BENADRYL COLD ORAL) pravastatin (PRAVACHOL) 20 mg tablet levothyroxine (SYNTHROID) 137 mcg tablet Admission/Clinic Administered Medications as of 10/10/18: NaCl 0.9% iv infusion Problem List: Acquired hypothyroidism [E03.9] Sarcoidosis [D86.9] Sleep apnea [G47.30] Hyperlipidemia with target LDL less than 100 [E78.5] Cervicothoracic somatic dysfunction [M99.01] Tobacco abuse [Z72.0] Venous insufficiency [I87.2] History of atrial fibrillation without current medication [Z86.79] Mild intermittent asthma without complication [J45.20] Reactive depression [F32.9] Cervical radiculopathy [M54.12] Cervical arthritis [M47.812] Screening for colon cancer [Z12.11] Abdominal pain [R10.9] Allergies: Prozac [Fluoxetine Hcl] Seasonal Allergies Date Verified: 10/10/18 Lab Values No results within the last 30 days for the following basenames: K,HCT Progress Notes ([facility]): Radha Valerio LPN 10/07/2018 1:19 PM Signed HST result received from Annabel. RDI 2.9 Patient does qualify for O2 with and SpO2<89% for 5 minutes or greater. Patients lowest desaturation 83% , minutes of oxygen sat <89% was 21 minutes. Will have Tyson LAYTON review full report when in [place] next week. Progress Notes ([facility]): Cathryn Morfin LPN 09/23/2018 11:03 AM Signed ----- Message from Toyin Brice (Pa) sent at 09/23/2018 10:57 AM EST ----- Please let patient know no acute findings on right upper quadrant ultrasound, in particular no abnormalities with the gallbladder. The possible polyp noted on his last RUQ ultrasound is no longer visualized. Proceed with endoscopy in October as scheduled. Herman Gurrola LPN 09/23/2018 11:38 AM Signed Pt notified AND verbalized understanding Herman Gurrola LpnPt notified AND verbalized understanding Herman Gurrola Lpn [facility] Vital Signs Date Time Vital Sign Value Performing Clinician Annmarie lpóez 03-13-2024 13:58-0400 Body mass index (BMI) [Ratio] 29.64 kg/m2 Mary Martínez MD Work Phone: [facility] 03-13-2024 13:58-0400 Body weight 92.35 kg Mary Martínez MD Work Phone: [facility] 03-13-2024 13:58-0400 Diastolic blood pressure 82 mm[Hg] Mary Martínez MD Work Phone: [facility] 03-13-2024 13:58-0400 Heart rate 68 /min Mary Martínez MD Work Phone: [facility] 03-13-2024 13:58-0400 Respiratory rate 18 /min Mary Martínez MD Work Phone: [facility] 03-13-2024 13:58-0400 Systolic blood pressure 136 mm[Hg] Mary Martínez MD Work Phone: [facility] 02-25-2024 16:13-0400 Body mass index (BMI) [Ratio] 29.43 kg/m2 Mary Martínez MD Work Phone: [facility] 02-25-2024 16:13-0400 Body weight 91.72 kg Mary Martínez MD Work Phone: [facility] 02-25-2024 16:13-0400 Diastolic blood pressure 80 mm[Hg] Mary Martínez MD Work Phone: [facility] 02-25-2024 16:13-0400 Heart rate 70 /min Mary Martínez MD Work Phone: [facility] 02-25-2024 16:13-0400 Respiratory rate 16 /min Mary Martínez MD Work Phone: [facility] 02-25-2024 16:13-0400 Systolic blood pressure 130 mm[Hg] Mary Martínez MD Work Phone: [facility] 02-04-2024 16:07-0400 Body mass index (BMI) [Ratio] 30.1 kg/m2 Mary Martínez MD Work Phone: [facility] 02-04-2024 16:07-0400 Body weight 93.8 kg Mary Martínez MD Work Phone: [facility] 02-04-2024 16:07-0400 Diastolic blood pressure 74 mm[Hg] Mary Martínez MD Work Phone: [facility] 02-04-2024 16:07-0400 Heart rate 72 /min Mary Martínez MD Work Phone: [facility] 02-04-2024 16:07-0400 Respiratory rate 16 /min Mary Martínez MD Work Phone: [facility] 02-04-2024 16:07-0400 Systolic blood pressure 130 mm[Hg] Mary Martínez MD Work Phone: [facility] 01-03-2024 17:03-0400 Body height 176.5 cm Mary Martínez MD Work Phone: [facility] 01-03-2024 17:03-0400 Body weight 95.53 kg Mary Martínez MD Work Phone: [facility] 01-03-2024 17:03-0400 Diastolic blood pressure 84 mm[Hg] Mary Martínez MD Work Phone: [facility] 01-03-2024 17:03-0400 Heart rate 64 /min Mary Martínez MD Work Phone: [facility] 01-03-2024 17:03-0400 Respiratory rate 16 /min Mary Martínez MD Work Phone: [facility] 01-03-2024 17:03-0400 Systolic blood pressure 132 mm[Hg] Mary Martínez MD Work Phone: [facility] 08-17-2023 12:51-0500 Body temperature 97.39 [degF] Hayder Santacruz APRN.CNP Work Phone: [facility] 08-17-2023 12:51-0500 Body weight 96.98 kg Hayder Santacruz [employer]ING [employer] Work Phone: [facility] 08-17-2023 12:51-0500 Diastolic blood pressure 80 mm[Hg] Hayder Santacruz BOTTOM TURNING LATHE TENDER.MUCK FARMER Work Phone: [facility] 08-17-2023 12:51-0500 Heart rate 62 /min Hayder Santacruz BOTTOM TURNING LATHE TENDER.MUCK FARMER Work Phone: [facility] 08-17-2023 12:51-0500 Respiratory rate 16 /min Hayder Santacruz BOTTOM TURNING LATHE TENDER.MUCK FARMER Work Phone: [facility] 08-17-2023 12:51-0500 SaO2% (BldA) [Mass fraction] 98 % Hayder Santacruz BOTTOM TURNING LATHE TENDER.MUCK FARMER Work Phone: [facility] 08-17-2023 12:51-0500 Systolic blood pressure 120 mm[Hg] Hayder Santacruz BOTTOM TURNING LATHE TENDER.MUCK FARMER Work Phone: [facility] 06-08-2023 15:24-0400 Body temperature 98.4 [degF] Angy Alcantar BOTTOM TURNING LATHE TENDER.MUCK FARMER Work Phone: [facility] 06-08-2023 15:24-0400 Body weight 93.71 kg Angy Alcantar BOTTOM TURNING LATHE TENDER.MUCK FARMER Work Phone: [facility] 06-08-2023 15:24-0400 Diastolic blood pressure 80 mm[Hg] Angy Alcantar BOTTOM TURNING LATHE TENDER.MUCK FARMER Work Phone: [facility] 06-08-2023 15:24-0400 Heart rate 69 /min Angy Alcantar BOTTOM TURNING LATHE TENDER.MUCK FARMER Work Phone: [facility] 06-08-2023 15:24-0400 Respiratory rate 16 /min Angy Alcantar BOTTOM TURNING LATHE TENDER.MUCK FARMER Work Phone: [facility] 06-08-2023 15:24-0400 SaO2% (BldA) [Mass fraction] 96 % Angy Alcantar BOTTOM TURNING LATHE TENDER.MUCK FARMER Work Phone: [facility] 06-08-2023 15:24-0400 Systolic blood pressure 140 mm[Hg] Angy Alcantar BOTTOM TURNING LATHE TENDER.MUCK FARMER Work Phone: [facility] 12-25-2022 15:18-0400 Body height 175.3 cm Noel Loazno PA-C Work Phone: [facility] 12-25-2022 15:18-0400 Body temperature 98.8 [degF] Noel Lozano PA-C Work Phone: [facility] 12-25-2022 15:18-0400 Body weight 97.52 kg Noel Lozano PA-C Work Phone: [facility] 12-25-2022 15:18-0400 Diastolic blood pressure 86 mm[Hg] Noel Lozano PA-C Work Phone: [facility] 12-25-2022 15:18-0400 Heart rate 88 /min Noel Lozano PA-C Work Phone: [facility] 12-25-2022 15:18-0400 Respiratory rate 14 /min Noel Lozano PA-C Work Phone: [facility] 12-25-2022 15:18-0400 SaO2% (BldA) [Mass fraction] 97 % Noel Lozano PA-C Work Phone: [facility] 12-25-2022 15:18-0400 Systolic blood pressure 150 mm[Hg] Noel Lozano PA-C Work Phone: [facility] 11-30-2022 13:15-0500 Body height 172.7 cm Dmitry Coronado BOTTOM TURNING LATHE TENDER.MUCK FARMER Work Phone: [facility] 11-30-2022 13:15-0500 Body temperature 98.71 [degF] Dmitry Coronado BOTTOM TURNING LATHE TENDER.MUCK FARMER Work Phone: [facility] 11-30-2022 13:15-0500 Body weight 95.71 kg Dmitry Ivonne BOTTOM TURNING LATHE TENDER.MUCK FARMER Work Phone: [facility] 11-30-2022 13:15-0500 Diastolic blood pressure 75 mm[Hg] Dmitry Ivonne BOTTOM TURNING LATHE TENDER.MUCK FARMER Work Phone: [facility] 11-30-2022 13:15-0500 Heart rate 80 /min Dmitry Ivonne BOTTOM TURNING LATHE TENDER.MUCK FARMER Work Phone: [facility] 11-30-2022 13:15-0500 Respiratory rate 16 /min Dmitry Ivonne BOTTOM TURNING LATHE TENDER.MUCK FARMER Work Phone: [facility] 11-30-2022 13:15-0500 SaO2% (BldA) [Mass fraction] 97 % Dmirty Ivonne BOTTOM TURNING LATHE TENDER.MUCK FARMER Work Phone: [facility] 11-30-2022 13:15-0500 Systolic blood pressure 126 mm[Hg] Dmitry Ivonne BOTTOM TURNING LATHE TENDER.MUCK FARMER Work Phone: [facility] 07-30-2022 12:24-0400 Body temperature 98.49 [degF] Kandy Shira BOTTOM TURNING LATHE TENDER.MUCK FARMER Work Phone: [facility] 07-30-2022 12:24-0400 Body weight 98.52 kg Kandy Shira BOTTOM TURNING LATHE TENDER.MUCK FARMER Work Phone: [facility] 07-30-2022 12:24-0400 Diastolic blood pressure 86 mm[Hg] Kandy Shira BOTTOM TURNING LATHE TENDER.MUCK FARMER Work Phone: [facility] 07-30-2022 12:24-0400 Heart rate 76 /min Kandy Shira BOTTOM TURNING LATHE TENDER.MUCK FARMER Work Phone: [facility] 07-30-2022 12:24-0400 Respiratory rate 16 /min Kandy Shira BOTTOM TURNING LATHE TENDER.MUCK FARMER Work Phone: [facility] 07-30-2022 12:24-0400 SaO2% (BldA) [Mass fraction] 97 % Kandy Shira BOTTOM TURNING LATHE TENDER.MUCK FARMER Work Phone: [facility] 07-30-2022 12:24-0400 Systolic blood pressure 154 mm[Hg] Kandy Shira BOTTOM TURNING LATHE TENDER.MUCK FARMER Work Phone: [facility] 03-05-2022 10:28-0400 Body temperature 98.2 [degF] Km Efren BOTTOM TURNING LATHE TENDER.MUCK FARMER Work Phone: [facility] 03-05-2022 10:28-0400 Body weight 98.25 kg Km Efren BOTTOM TURNING LATHE TENDER.MUCK FARMER Work Phone: [facility] 03-05-2022 10:28-0400 Diastolic blood pressure 76 mm[Hg] Km Schwartz BOTTOM TURNING LATHE TENDER.MUCK FARMER Work Phone: [facility] 03-05-2022 10:28-0400 Heart rate 70 /min Km Efren BOTTOM TURNING LATHE TENDER.MUCK FARMER Work Phone: [facility] 03-05-2022 10:28-0400 Respiratory rate 18 /min Km Efrne BOTTOM TURNING LATHE TENDER.MUCK FARMER Work Phone: [facility] 03-05-2022 10:28-0400 SaO2% (BldA) [Mass fraction] 97 % Km Efren BOTTOM TURNING LATHE TENDER.MUCK FARMER Work Phone: [facility] 03-05-2022 10:28-0400 Systolic blood pressure 130 mm[Hg] Km Efren BOTTOM TURNING LATHE TENDER.MUCK FARMER Work Phone: [facility] Encounters Encounter Date Encounter Type Care Provider Facility Start: 07-05-2024 End: 07-05-2024 Refill Mary Martínez MD Work Phone: [facility] [place] Comment on above: Refill Request Start: 03-13-2024 End: 03-13-2024 [facility] Start: 03-13-2024 End: 03-13-2024 Patient encounter procedure Mary Martínez MD Work Phone: [facility] [place] Comment on above: Left knee pain, unsp ecified chronicity (Primary Dx); Right hip pain; Hip tendonitis, right Start: 02-25-2024 End: 02-25-2024 ambulatory MARY MARTÍNEZ Facility:[facility] Start: 02-25-2024 End: 02-25-2024 Patient encounter procedure Mary Martínez MD Work Phone: [facility] [place] Comment on above: Current mild episode of major depressive disorder, unspecified whether recurrent (HCC) (Primary Dx) Start: 02-04-2024 End: 02-04-2024 ambulatory [facility] Facility:[facility] Start: 02-04-2024 End: 02-04-2024 Patient encounter procedure Mary Martínez MD Work Phone: [facility] [place] Comment on above: Reactive depression (Primary Dx); Tobacco abuse Start: 01-03-2024 End: 01-03-2024 ambulatory [facility] Facility:[facility] Start: 01-03-2024 End: 01-03-2024 Patient encounter procedure Mary Martínez MD Work Phone: [facility] [place] Comment on above: Hypertension, essent ial (Primary Dx); Acquired hypothyroidism; Hyperlipidemia with target LDL less than 100; Tobacco abuse; Reactive depression; Sleep apnea, unspecified type Start: 12-21-2023 End: 12-21-2023 ambulatory [facility] Facility:[facility] Start: 12-20-2023 Refill Edelmira Gilman APRN.MUCK FARMER Work Phone: [facility] [place] Comment on above: Refill Request Start: 12-07-2023 Refill Dmitry TSE RN.MUCK FARMER Work Phone: [facility] [place] Comment on above: Refill Request Start: 11-29-2023 End: 11-29-2023 ambulatory Yelena Brown DO Work Phone: [facility] [place] Comment on above: Cervical radiculopat hy (Primary Dx); Disturbance of skin sensation; Generalized hyperreflexia; Sarcoidosis Start: 11-29-2023 End: 11-29-2023 Telemedicine consultation with patient Yelena Brown DO Work Phone: [facility] Start: 11-12-2023 End: 11-12-2023 ambulatory [facility] Facility:[facility] Start: 11-12-2023 End: 11-12-2023 Subsequent hospital visit by physician Mri [facility] (I-Stat/1.5t) Work Phone: Radiology Comment on above: Multiple sclerosis ( HCC) [G35] Start: 10-18-2023 End: 10-18-2023 ambulatory [facility] Facility:[facility] Start: 10-09-2023 End: 10-09-2023 ambulatory [facility] Facility:[facility] Start: 08-17-2023 End: 08-17-2023 ambulatory [facility] Facility:[facility] Start: 08-17-2023 End: 08-17-2023 Office outpatient visit 25 minutes Hayder Santacruz APRN.MUCK FARMER Work Phone: [facility] Comment on above: Viral URI with cough (Primary Dx) Start: 07-30-2023 Telephone encounter John Paul freitas MD Work Phone: Neurosurgery Comment on above: Received Outside Med [facility] Records Start: 07-09-2023 Refill Roddy Carter APRN.MUCK FARMER, DNP Work Phone: [facility] [place] Comment on above: Refill Request Start: 06-15-2023 Telephone encounter Dmitry chan APRN.MUCK FARMER Work Phone: [facility] [place] Comment on above: Results Start: 06-14-2023 End: 06-14-2023 ambulatory [facility] Facility:[facility] Start: 06-08-2023 End: 06-08-2023 ambulatory [facility] Facility:[facility] Start: 06-08-2023 End: 06-08-2023 Patient encounter procedure Angy Alcantar APRN.MUCK FARMER Work Phone: [facility] Comment on above: Itching (Primary Dx) Start: 05-26-2023 ambulatory mDitry TSE RN.MUCK FARMER Work Phone: [facility] [place] Comment on above: TSH Start: 03-23-2023 ambulatory Mary chavez MD Work Phone: [facility] [place] Comment on above: Checkup Start: 12-25-2022 End: 12-25-2022 Patient encounter procedure Noel Lozano PA-C Work Phone: Urology Comment on above: Elevated PSA Start: 11-30-2022 End: 11-30-2022 Office outpatient visit 40 minutes Dmitry Coronado APRN.MUCK FARMER Work Phone: [facility] Comment on above: Acquired hypothyroid ism (Primary Dx); Hyperlipidemia with target LDL less than 100; Elevated PSA; Hypertension, essential; Asthma with COPD with exacerbation (HCC); Sleep apnea, unspecified type; Pruritus of skin Start: 11-23-2022 ambulatory [facility] vidya Waller Comment on above: Appt Start: 11-23-2022 E-mail encounter monico green caregiver [facility] Start: 11-23-2022 Telephone encounter Dmitry chan APRN.[facility] Work Phone: [facility] Comment on above: Appointment Start: 11-08-2022 Refill Roddy Carter APRN.MUCK FARMER, [facility] Work Phone: [facility] Comment on above: Refill Request Start: 10-04-2022 Refill Edelmira Gilman APRN.MUCK FARMER Work Phone: [facility] Comment on above: Refill Request Start: 09-19-2022 Refill Dmitry TSE RN.[facility] Work Phone: [facility] Comment on above: Refill Request Start: 08-01-2022 Telephone encounter Yun Pascual APRN.MUCK FARMER Work Phone: [facility] Comment on above: Results, Lab Start: 07-31-2022 Telephone encounter Yun Pascual APRN.MUCK FARMER Work Phone: [facility] Comment on above: Results Start: 07-30-2022 End: 07-30-2022 Patient encounter procedure Kandy Silva APRN.MUCK FARMER Work Phone: [facility] Comment on above: Urinary frequency (P rimary Dx) Start: 07-30-2022 End: 07-30-2022 ambulatory Felisa Perez APRN.MUCK FARMER Work Phone: Telemedicine Comment on above: Treatment not availa ble (Primary Dx) Start: 07-30-2022 End: 07-30-2022 Telemedicine consultation with patient Felisa Perez GARRET.MUCK FARMER Work Phone: [facility] Start: 04-07-2022 Refill Mary chavez MD Work Phone: [facility] Comment on above: Refill Request Start: 03-05-2022 End: 03-05-2022 Patient encounter procedure Km Schwartz APRN.MUCK FARMER Work Phone: [facility] Comment on above: Olecranon bursitis o f right elbow (Primary Dx) Start: 05-16-2021 End: 05-16-2021 Subsequent hospital visit by physician Xr [facility] [place] Work Phone: Radiology Comment on above: Medial epicondylitis of left elbow [M77.02] Start: 12-04-2018 End: 12-15-2018 Patient encounter procedure TYSON (CALIN) [facility] Start: 10-10-2018 End: 10-10-2018 Patient encounter procedure [facility] Procedures Date Procedure Procedure Detail Performing Clinician Start: 11-12-2023 Mri brain brain stem w/o contrast material Yelena Brown DO Work Phone: Start: 12-25-2022 Urnls dip stick/tabl et rgnt auto w/o microscopy Noel Lozano PA-C Work Phone: Start: 11-20-2022 Lipid 1996 panel - S ioana or Plasma Dmitry Coronado BOTTOM TURNING LATHE TENDER.MUCK FARMER Work Phone: Start: 07-30-2022 Urnls dip stick/tabl et rgnt auto w/o microscopy Vonda Abrams BOTTOM TURNING LATHE TENDER.MUCK FARMER Work Phone: Start: 05-16-2021 Radex elbow 2 views Chr melanie Conroy MD Work Phone: Start: 10-10-2018 Colonoscopy Km saba BOTTOM TURNING LATHE TENDER.MUCK FARMER Work Phone: Plan of Treatment Date Care Activity Detail Author Start: 2031 PNEUMOCOCCAL (3 - PPSV23 if available, else PCV20) PNEUMOCOCCAL (3 - PPSV23 if available, else PCV20) [facility] Start: 2031 PNEUMOCOCCAL (3 - PPSV23 or PCV20) PNEUMOCOCCAL (3 - PPSV23 or PCV20) [facility] Start: 2031 Pneumococcal vaccination [facility] Start: 12-20-2028 Prostate specific antigen measurement Prostate Cancer Screening Discussion [facility] Start: 08-04-2028 Urine microalbumin profile [facility] Start: 11-20-2027 Lipid 1996 panel - Serum or Plasma Lipid Screening [facility] Start: 11-20-2027 Lipid panel Lipid Screening [facility] Start: 11-20-2027 LIPID SCREEN LIPID SCREEN [facility] Start: 11-20-2027 PROSTATE CANCER SCREENING DISCUSSION PROSTATE CANCER SCREENING DISCUSSION [facility] Start: 11-20-2027 Prostate specific antigen measurement Prostate Cancer Screening Discussion [facility] Start: 10-29-2026 PROSTATE CANCER SCREENING DISCUSSION PROSTATE CANCER SCREENING DISCUSSION [facility] Start: 10-09-2026 LIPID SCREEN LIPID SCREEN [facility] Start: 11-20-2025 DIABETES SCREEN DIABETES SCREEN [facility] Start: 11-20-2025 Diabetes Screening Diabetes Screenin g [facility] Start: 07-30-2025 DIABETES SCREEN DIABETES SCREEN [facility] Start: 03-13-2025 Annual PCP Team Chief Business Development Officer marva Disease Visit Annual PCP Team Chronic Disease Visit [facility] Start: 02-24-2025 Annual PCP Team Chief Business Development Officer marva Disease Visit Annual PCP Team Chronic Disease Visit [facility] Start: 02-03-2025 Annual PCP Team Chief Business Development Officer marva Disease Visit Annual PCP Team Chronic Disease Visit [facility] Start: 01-02-2025 Annual PCP Team Chief Business Development Officer marva Disease Visit Annual PCP Team Chronic Disease Visit [facility] Start: 01-02-2025 Covid-19 Vaccine () Covid-19 Vaccine () [facility] Comment on above: Postponed from 06/04 (Declined at this time) Start: 01-02-2025 Hepatitis C screening Hepatitis C Sc jignesh [facility] Comment on above: Postponed from 06/12 (Declined at this time) Start: 01-02-2025 HIV screening HIV Screening [facility] Comment on above: Postponed from 06/12 (Declined at this time) Start: 10-09-2024 DIABETES SCREEN DIABETES SCREEN [facility] Start: 08-28-2024 End: 08-28-2024 Follow-up encounter 08/28/2024 3:20 PM [facility] [place] [address] [facility], [place] [id number] Mary Martínez MD [address] [place], [place] [id number] 6 month [facility] up [facility] Comment on above: 6 month follow up Start: 06-04-2024 Covid-19 Vaccine ( season) Covid-19 Vaccine () [facility] Start: 06-04-2024 Influenza vaccination [facility] Start: 03-03-2024 End: 03-03-2024 Patient encounter procedure 03/03/2024 4:20 PM EDT Office Visit [facility] [place] [address] [facility], [place] [id number] Mary Martínez MD [address] [place], [place] [id number] 1 mo f/u [facility] Comment on above: 1 mo f/u Start: 12-26-2023 End: 02-25-2024 Prostate specific Ag [Mass/volume] in Serum or Plasma PSA/PROSTSPECAG DIAG Lab Routine Elevated PSA Expected: 12/26/2023 (Approximate), Expires: 02/25/2024 [facility] Work Phone: Comment on above: Expected: 12/26/2023 (Approximate), Expires: 02/25/2024 Start: 11-30-2023 ANNUAL PCP TEAM [employer] MARVA DISEASE VISIT ANNUAL PCP TEAM CHRONIC DISEASE VISIT [facility] Start: 11-30-2023 BP CONTROLLED (<130/80) BP CONTROLLE D (<130/80) [facility] Start: 11-30-2023 COVID-19 VACCINE (#1) COVID-19 VACCI NE (#1) [facility] Comment on above: Postponed from 12/10 (Declined at this time) Start: 11-30-2023 HEPATITIS C SCREENING HEPATITIS C [facility] Comment on above: Postponed from 06/12 (Declined at this time) Start: 11-30-2023 Hepatitis C screening Hepatitis C [facility] Comment on above: Postponed from 06/12 (Declined at this time) Start: 11-30-2023 HIV SCREENING HIV SCREENING [facility] Comment on above: Postponed from 06/12 (Declined at this time) Start: 11-30-2023 HIV screening HIV Screening [facility] Comment on above: Postponed from 06/12 (Declined at this time) Start: 11-30-2023 SHINGRIX VACCINE (1 of 2) SHINGRIX VACCINE (1 of 2) [facility] Comment on above: Postponed from 06/12 (Declined at this time) Start: 10-10-2023 Colonoscopy COLONOSCOPY [facility] Start: 10-10-2023 COLORECTAL CANCER SCREENING COLORECTAL CANCER SCREENING [facility] Start: 10-10-2023 Screening for malign ant neoplasm of colon [facility] Start: 08-15-2023 End: 10-15-2023 Thyrotropin [Units/volume] in Serum or Plasma TSH BLD Lab Routine Acquired hypothyroidism Expected: 08/15/2023 (Approximate), Expires: 10/15/2023 [facility] Work Phone: Comment on above: Expected: 08/15/2023 (Approximate), Expires: 10/15/2023 Start: 07-31-2023 ANNUAL PCP TEAM [employer] MARVA DISEASE VISIT ANNUAL PCP TEAM CHRONIC DISEASE VISIT [facility] Start: 06-04-2023 Covid-19 Vaccine ( season) Covid-19 Vaccine () [facility] Start: 06-04-2023 Influenza vaccination [facility] Start: 05-26-2023 End: 07-26-2023 Thyrotropin [Units/volume] in Serum or Plasma TSH BLD Lab Routine Acquired hypothyroidism Expected: 05/26/2023, Expires: 07/26/2023 [facility] Work Phone: Comment on above: Expected: 05/26/2023 , Expires: 07/26/2023 Start: 05-09-2023 End: 07-09-2023 Lipid 1996 panel - Serum or Plasma LIPID PANEL BASIC Lab Routine Hyperlipidemia with target LDL less than 100 Expected: 05/09/2023, Expires: 07/09/2023 [facility] Work Phone: Comment on above: Expected: 05/09/2023 , Expires: 07/09/2023 Start: 04-02-2023 Influenza vaccination INFLUENZA (#1) [facility] Comment on above: Postponed from 06/04 (Declined at this time) Start: 01-28-2023 End: 03-30-2023 Thyrotropin [Units/volume] in Serum or Plasma TSH BLD Lab Routine Acquired hypothyroidism Expected: 01/28/2023 (Approximate), Expires: 03/30/2023 [facility] Work Phone: Comment on above: Expected: 01/28/2023 (Approximate), Expires: 03/30/2023 Start: 12-02-2022 ANNUAL PCP TEAM [employer] MARVA DISEASE VISIT ANNUAL PCP TEAM CHRONIC DISEASE VISIT [facility] Start: 11-09-2022 End: 01-09-2023 Comprehensive metabolic 2000 panel - Serum or Plasma COMP METABOLIC PANEL Lab Routine Acquired hypothyroidism Hyperlipidemia with target LDL less than 100 Expected: 11/09/2022, Expires: 01/09/2023 [facility] Work Phone: Comment on above: Expected: 11/09/2022 , Expires: 01/09/2023 Start: 11-09-2022 End: 01-09-2023 Prostate Specific Ag Free [Mass/volume] in Serum or Plasma PSA FREE Lab Routine Elevated PSA Expected: 11/09/2022, Expires: 01/09/2023 [facility] Work Phone: Comment on above: Expected: 11/09/2022 , Expires: 01/09/2023 Start: 11-09-2022 End: 01-09-2023 Thyrotropin [Units/volume] in Serum or Plasma TSH BLD Lab Routine Acquired hypothyroidism Expected: 11/09/2022, Expires: 01/09/2023 [facility] Work Phone: Comment on above: Expected: 11/09/2022 , Expires: 01/09/2023 Start: 10-08-2022 HEPATITIS C SCREENING HEPATITIS C [facility] Comment on above: Postponed from 06/12 (Declined at this time) Start: 10-08-2022 HIV SCREENING HIV SCREENING [facility] Comment on above: Postponed from 06/12 (Declined at this time) Start: 10-08-2022 SPIROMETRY SPIROMETRY [facility] Comment on above: Postponed from 06/12 (Declined at this time) Start: 07-30-2022 End: 09-29-2022 Comprehensive metabolic 2000 panel - Serum or Plasma [facility] Work Phone: Comment on above: Expected: 07/30/2022 , Expires: 09/29/2022 Start: 06-04-2022 Influenza vaccination C [facility] Start: 03-10-2020 BP CONTROLLED (<130/80) BP CONTROLLE D (<130/80) [facility] Start: 08-28-2018 FECAL OCCULT BLOOD FECAL OCCULT BLOO D [facility] Start: 08-28-2018 Screening for malign ant neoplasm of colon Fecal Occult Blood [facility] Start: 2016 SHINGRIX VACCINE (1 of 2) SHINGRIX VACCINE (1 of 2) [facility] Start: 2011 COLOGUARD (FIT-DNA) COLOGUARD (FIT-D NA) [facility] Start: [address] COLONOGRAPHY [facility] Start: 2011 Screening for malign ant neoplasm of colon [facility] Start: 2011 SIGMOIDOSCOPY SIGMOIDOSCOPY [facility] Start: 1984 Anxiety Screening Anxiety Screening [facility] Start: 1984 HEPATITIS C SCREENING HEPATITIS C [facility] Start: 1984 Hepatitis C screening Hepatitis C [facility] Start: 1984 HIV SCREENING HIV SCREENING [facility] Start: 1984 HIV screening HIV Screening [facility] Start: 1984 SPIROMETRY SPIROMETRY [facility] Start: 1971 COVID-19 VACCINE (#1) COVID-19 VACCI NE (#1) [facility] Start: 1966 COVID-19 VACCINE (#1) COVID-19 VACCI NE (#1) [facility] Bacteria identified in Urine by Culture URINE CULTURE Microbiology Routine Urinary frequency Ordered: 07/30/2022 [facility] Work Phone: Comment on above: Ordered: 07/30/2022 End: 11-29-2024 EMG(NEURO/NI) EMG(NEURO/NI) EMG Routine Cervical radiculopathy Disturbance of skin sensation Generalized hyperreflexia Sarcoidosis 1 Occurrences starting 11/29/2023 until 11/29/2024 [facility] Work Phone: Comment on above: 1 Occurrences starti ng 11/29/2023 until 11/29/2024 POST VOID RESIDUAL POST VOID RES IDUAL Procedures Routine Elevated PSA Ordered: 12/25/2022 [facility] Work Phone: Comment on above: Ordered: 12/25/2022 [facility] Immunizations Immunization Date Immunization Notes Care Provider [facility]op[facility] 09-26-2019 influenza virus vacc ine, unspecified formulation Dmitry Coronado APRN.MUCK FARMER Work Phone: [facility] 08-04-2018 pneumococcal polysaccharide vaccine, 23 valent Km Schwartz BOTTOM TURNING LATHE TENDER.MUCK FARMER Work Phone: [facility] 08-04-2018 tetanus toxoid, redu barry diphtheria toxoid, and acellular pertussis vaccine, adsorbed Km Schwartz BOTTOM TURNING LATHE TENDER.MUCK FARMER Work Phone: [facility] 04-17-2017 pneumococcal conjuga te vaccine, 13 valent Km Schwartz BOTTOM TURNING LATHE TENDER.MUCK FARMER Work Phone: [facility] 03-14-2013 pneumococcal polysaccharide vaccine, 23 valent Km Schwartz BOTTOM TURNING LATHE TENDER.MUCK FARMER Work Phone: [facility] 03-18-2009 hepatitis B vaccine, adult dosage Km Schwartz BOTTOM TURNING LATHE TENDER.MUCK FARMER Work Phone: [facility] Work Phone: 10-18-2008 hepatitis B vaccine, adult dosage Kmkarlie Schwartz APRN.MUCK FARMER Work Phone: [facility] Work Phone: 09-20-2008 hepatitis B vaccine, adult dosage Km Schwartz APRN.MUCK FARMER Work Phone: [facility] Work Phone: 10-04-1999 tetanus and diphther ia toxoids, adsorbed, preservative free, for adult use (2 Lf of tetanus toxoid and 2 Lf of diphtheria toxoid) Km Schwartz APRN.MUCK FARMER Work Phone: [facility] Work Phone: Payers Date Payer Category Payer Unknown [employer] PPO OOS [id number] 2014-Present [phone] [address] [place] [address] PPO [id number] 2014 Unknown [employer] PPO OOS [id number] 2014-Present [phone] [address] [place] [address] PPO [id number] 2014 Unknown [id number] Social History Date Type Detail Facility Start: 02-17-2019 End: 07-30-2022 Tobacco smoking status NHIS Ex-smoker [facility] Work Phone: Start: 12-08-1992 End: 12-08-2012 History of tobacco use Current smoker [facility] Work Phone: Start: 12-08-1992 End: 12-08-2012 History of tobacco use Cigarette Smoker [facility] Work Phone: Start: 02-17-2019 End: 09-08-2020 Cigarettes smoked current (pack per day) - Reported 0.2 [facility] Start: 02-17-2019 End: 01-03-2024 Tobacco use and exposure User of smokeless tobacco [facility] Work Phone: History of tobacco use Chews Tobacco [facility] Work Phone: Start: 05-16-2021 End: 03-05-2022 Alcohol intake Current drinker of alcohol (finding) [facility] Start: 05-16-2021 End: 11-26-2022 History SDOH Alcohol Frequency 2 [facility] Start: 05-16-2021 End: 11-26-2022 History SDOH Alcohol Std Drinks 1 [facility] Start: 05-16-2021 End: 11-26-2022 History SDOH Social Connections Phone 5 [facility] Start: 05-16-2021 End: 11-26-2022 History SDOH Social Connections Nondenominational 3 [facility] Start: 05-16-2021 End: 11-26-2022 History SDOH Physical Activity MPS 9 [facility] Start: 05-16-2021 History SDOH Stress 4 [facility] Start: 05-16-2021 Education 15 [facility] Start: 12-02-2021 End: 07-30-2022 Tobacco Comment occasionally will smoke [facility] Start: 1965 Sex Assigned At Male [facility] Start: 02-23-2022 End: 07-30-2022 Exposure to SARS-CoV-2 (event) Not sure [facility] Work Phone: Start: 12-25-2022 End: 03-13-2024 Alcohol intake Ex-drinker (finding) [facility] Start: 09-08-2020 End: 11-26-2022 Social connection and isolation panel [facility] Do you belong to any clubs or organizations such as christian groups, unions, fraternal or athletic groups, or school groups? No [facility] Are you now , , , , never or living with a partner? [facility] How often to you hav e a drink containing alcohol? Monthly or less [facility] How many standard dr inks containing alcohol do you have on a typical day? 1 or 2 [facility] How often do you hav e 6 or more drinks on 1 occasion? Never [facility] How hard is it for y ou to pay for the very basics like food, housing, medical care, and heating Not hard at all [facility] Do you feel stress - tense, restless, nervous, or anxious, or unable to sleep at night because your mind is troubled all the time - these days [OSQ] Not at all [facility] (I/We) worried wheth er (my/our) food would run out before (I/we) got money to buy more. Never true [facility] Start: 08-04-2019 Gender identity Identifies as male gender (finding) [facility] Start: 08-04-2019 Sexual orientation Heterosexual (finding) [facility] Start: 12-08-1992 Tobacco smoking status NHIS Smokes tobacco daily [facility] Do you feel stress - tense, restless, nervous, or anxious, or unable to sleep at night because your mind is troubled all the time - these days [OSQ] Rather much [facility] Start: 09-30-2018 Tobacco Comment 3 cig per day average [facility] Clinical Notes 11-28-2012 to 07-05-2024 Telephone Encounter - Dmitry Coronado APRN.CNP - 07/05/2024 1:08 PM EDTTelephone Encounter - Dmitry Coronado APRN.CNP - 07/05/2024 1:08 PM EDTPatient Yelena Wilhelm DO - 11/29/2023 4:28 PM EST Note Date & Type Note Facility 07-05-2024 Telephone encounter Note The following approved medication requests have been transmitted electronically. Requested Prescriptions Pending Prescriptions Disp Refills celecoxib (CELEBREX) 100 mg capsule 60 capsule 1 Sig: Take 1 capsule by mouth two times a day. Dmitry Coronado APRN.CNP [facility] 07-05-2024 Miscellaneous Notes The following approved medication requests have been transmitted electronically. Requested Prescriptions Pending Prescriptions Disp Refills celecoxib (CELEBREX) 100 mg capsule 60 capsule 1 Sig: Take 1 capsule by mouth two times a day. Dmitry Coronado APRN.CNP Prescription Refill Information The patient has been identified by name and date of : Yes Caregiver verified no other encounters exist for this prescription request: Yes Caregiver confirmed with patient/requestor that no other refills are due, in the near future, with this provider at this time: Yes The last office visit in the department: 03/13/24 Does the patient have a future office visit with this provider/department: Yes 08/28/24 Requested Prescriptions Pending Prescriptions Disp Refills celecoxib (CELEBREX) 100 mg capsule 60 capsule 1 Sig: Take 1 capsule by mouth two times a day. Maribeth Morton LPN July 05, 2024 12:26 PM documented in this encounter [facility] 07-05-2024 Telephone encounter Note Prescription Refill Information The patient has been identified by name and date of : Yes Caregiver verified no other encounters exist for this prescription request: Yes Caregiver confirmed with patient/requestor that no other refills are due, in the near future, with this provider at this time: Yes The last office visit in the department: 03/13/24 Does the patient have a future office visit with this provider/department: Yes 08/28/24 Requested Prescriptions Pending Prescriptions Disp Refills celecoxib (CELEBREX) 100 mg capsule 60 capsule 1 Sig: Take 1 capsule by mouth two times a day. Maribeth Morton LPN July 05, 2024 12:26 PM [facility] 03-13-2024 Instructions Ida Scales MA - 03/13/2024 2:23 PM EDT Start Celebrex 100 mg 1 tab po twice daily. Can take Tylenol, no other anti-inflammatories. Continue icing or using heat. Update office if not noticing any improvement. documented in this encounter [facility] 03-13-2024 History of Presen t illness Narrative Chief Complaint Patient presents with: Pain HPI Keaton Aguila is a 58 year old male who presents here today for an acute visit. Pt here today for left knee and right hip pain. Pt reports chronic left knee pain, but worse over the past two weeks. Has cracking and popping with bending and ambulating at times. With certain movements feels his knee is unstable and could give out. Right hip pain started 1 week ago. Unsure if this is related to his knee and limping around. Pain for both areas described as a dull aching type pain. Denies any swelling in his knee. Pain at present time rated a 2/10, earlier today a 6/10. Pt had to leave work earlier today due to the increased amount of pain he was in, so he scheduled an appt. Has tried using Tylenol Arthritis and ice packs with not significant amount of relief. Tried Aleve two weeks ago, didn't notice any improvement. Denies pain improving with sitting, gets stiff after sitting for 15 minutes. Once he gets up and moves it will loosen up. Feels he more than likely has arthritis. Had x-rays left knee in 2020 which were normal. Did not see Ortho back then. Behavioral Health Screening PHQ-9 Score: 1 (Minimal Depression) Recommendation: continuing current treatment plan Past medical history, appointments, medications, allergies reviewed. Previous Medical History PAST MEDICAL HISTORY Diagnosis Date Asthma with COPD (HCC) Atrial fibrillation (HCC) ablation 03/13/13 Cervical arthritis 04/17/2017 Cervical radiculopathy 04/17/2017 Cervicothoracic somatic dysfunction 07/31/2011 Depression Elevated prostate specific antigen (PSA) Esophageal reflux Fatty liver disease, nonalcoholic Gallbladder polyp 10/2017 2 mm Hyperlipidemia LDL goal < 100 01/01/2011 Hypertension Hypothyroidism Mild intermittent asthma without complication 08/27/2015 Osteoarthrosis, unspecified whether generalized or localized, other specified sites SERONEGATIVE Other and unspecified hyperlipidemia Peripheral vascular disease (HCC) Reactive depression 03/10/2016 Sarcoidosis Sleep apnea 01/01/2011 C-PAP Unspecified asthma(493.90) Unspecified hypothyroidism Previous Surgical History PAST SURGICAL HISTORY Procedure Laterality Date CATHETER ABLATION, INTRACARDIAC 03/13/13 atrial fibrillation COLONOSCOPY FLX DX W/COLLJ SPEC WHEN PFRMD 10/10/2018 Colonoscopy ESOPHAGOGASTRODUODENOSCOPY TRANSORAL DIAGNOSTIC 10/10/2018 EGD PAST SURGICAL HISTORY OF biopsy- sarcoidosis PAST SURGICAL HISTORY OF sinus polypectomy SEPTOPLASTY 2013 with polypectomy UMBILICAL HERNIA REPAIR 5 OR OLDER 2013 Family History FAMILY HISTORY Problem Relation Age of Onset Stroke Mother Diabetes Father Lipids Father Cancer Father stomach cancer Diabetes Maternal Grandfather Diabetes Maternal Uncle None Sister Patient Allergies ALLERGIES Allergen Reactions Prozac [Fluoxetine * Other: See Comments excessive sedation Seasonal Allergies Unknown Patient does get allergy injections twice per week Current Medications Current Outpatient Medications on File Prior to Visit Medication Sig metoprolol succinate ER (TOPROL XL) 25 mg 24 hr tablet Take 1 tablet by mouth every afternoon. buPROPion XL (WELLBUTRIN XL) 300 mg 24 hr tablet Take 1 tablet by mouth once daily. lisinopril (ZESTRIL) 5 mg tablet Take 1 tablet by mouth every afternoon. pravastatin (PRAVACHOL) 20 mg tablet Take 1 tablet by mouth daily at bedtime. gabapentin (NEURONTIN) 300 mg capsule Take 2 capsules by mouth three times a day for 90 days. albuterol HFA (PROAIR HFA) 90 mcg/actuation inhaler Inhale 2 Puffs as instructed every 6 hours as needed. budesonide-formoterol (SYMBICORT) 160-4.5 mcg/actuation inhaler Inhale 2 Puffs as instructed two times a day. levothyroxine (SYNTHROID) 100 mcg tablet Take 1 tablet by mouth once daily. Take on empty stomach. For thyroid Nebulizer NEBULIZER FOR HOME USE. [id number]:J40, R06.2 CPAP Settings 7 - 20 cm H2O, suitable mask per pt preference, chin strap, head gear, humidity, tubing, lifetime supplies. G47.33 FAIZAN No current facility-administered medications on file prior to visit. Social History Social History Tobacco Use Smoking status: Every Day Packs/day: 0.20 Years: 20.00 Additional pack years: 0.00 Total pack years: 4.00 Types: Cigarettes Last attempt to quit: 12/08/2012 Years since quittin.2 Smokeless tobacco: Current Types: Chew Vaping Use Vaping Use: Never used Substance Use Topics Alcohol use: Not Currently Comment: Beer on weekends Drug use: No EXAM: BP 136/82 (BP Site: Left Arm, BP Position: Sitting, BP Cuff Size: Regular Adult) Pulse 68 Resp 18 Wt 92.4 kg (203 lb 9.6 oz) BMI 29.64 kg/m General Appearance: Well appearing, alert, in no acute distress, well-hydrated, well nourished and Overweight. Extremities: Left knee examined. Edema: None appreciated on exam. Pain with full extension. Pain with ROM. Possible cartilage damage based on exam. Pain on medial side of knee and in the joint and with pivoting. Right hip examined, tenderness to palpitate to bursa area, more than likely a tendonitis inflammation issue. Good ROM in hip joint. Health Maintenance List Spirometry Never done Shingrix Vaccine(1 of 2) Never done BP Controlled (<130/80) due on 03/10/2020 Colorectal Cancer Screening due on 10/10/2023 Hepatitis C Screening due on 01/02/2025 HIV Screening due on 01/02/2025 Covid-19 Vaccine( - season) due on 01/02/2025 Influenza Vaccine(Season Ended) due on 06/04/2024 Annual PCP Team Chronic Disease Visit due on 02/24/2025 Diabetes Screening due on 11/20/2025 Lipid Screening due on 11/20/2027 DTaP,Tdap,Td Vaccine(2 - Td or Tdap) due on 08/04/2028 Prostate Cancer Screening Discussion due on 12/20/2028 Pneumococcal Vaccine(3 of 3 - PPSV23 or PCV20) due on 2031 Hepatitis B Vaccine Completed Data reviewed None ASSESSMENT/PLAN: 1. Left knee pain, unspecified chronicity - ICD9: 719.46, ICD10: M25.562 (primary diagnosis) - Possible cartilage damage/tear - Start Celebrex 100 mg bid. - If not improving see PT or Ortho 2. Right hip pain - ICD9: 719.45, ICD10: M25.551 - greater trochanteric bursitis - Related to Left knee pain, causing inflammation - Start Celebrex 100 mg bid 3. Hip tendonitis, right - ICD9: 727.09, ICD10: M76.891 - As noted above Update office if not improving. I agree with the Chief Complaint, ROS, and Past Histories independently gathered by the clinical production support developer and the remaining scribed note accurately describes my personal service to the patient. Medical Decision Making: Problems: Low: Acute, uncomplicated illness or injury Data: Unique test result(s) reviewed: 1 Risk: Moderate: Drug management Medical Decision Making Level: 3 - Low Mary Martínez MD The documentation for this note was completed by Ida Scales MA acting as scribe for Mary Martínez MD. March 13, 2024 2:21 PM. Ida Scales MA documented in this encounter [facility] 03-13-2024 Note HNO ID: [id number] Author: MARY MARTÍNEZ MD Service: ? Author Type: Physician Type: Progress Notes Filed: 03/13/2024 14:52 Note Text: Chief Complaint Patient presents with: Pain HPI Keaton Aguila is a 58 year old male who presents here today for an acute visit. Pt here today for left knee and right hip pain. Pt reports chronic left knee pain, but worse over the past two weeks. Has cracking and popping with bending and ambulating at times. With certain movements feels his knee is unstable and could give out. Right hip pain started 1 week ago. Unsure if this is related to his knee and limping around. Pain for both areas described as a dull aching type pain. Denies any swelling in his knee. Pain at present time rated a 2/10, earlier today a 6/10. Pt had to leave work earlier today due to the increased amount of pain he was in, so he scheduled an appt. Has tried using Tylenol Arthritis and ice packs with not significant amount of relief. Tried Aleve two weeks ago, didn't notice any improvement. Denies pain improving with sitting, gets stiff after sitting for 15 minutes. Once he gets up and moves it will loosen up. Feels he more than likely has arthritis. Had x-rays left knee in 2020 which were normal. Did not see Ortho back then. Behavioral Health Screening PHQ-9 Score: 1 (Minimal Depression) Recommendation: continuing current treatment plan Past medical history, appointments, medications, allergies reviewed. Previous Medical History PAST MEDICAL HISTORY Diagnosis Date Asthma with COPD (HCC) Atrial fibrillation (HCC) ablation 03/13/13 Cervical arthritis 04/17/2017 Cervical radiculopathy 04/17/2017 Cervicothoracic somatic dysfunction 07/31/2011 Depression Elevated prostate specific antigen (PSA) Esophageal reflux Fatty liver disease, nonalcoholic Gallbladder polyp 10/2017 2 mm Hyperlipidemia LDL goal < 100 01/01/2011 Hypertension Hypothyroidism Mild intermittent asthma without complication 08/27/2015 Osteoarthrosis, unspecified whether generalized or localized, other specified sites SERONEGATIVE Other and unspecified hyperlipidemia Peripheral vascular disease (HCC) Reactive depression 03/10/2016 Sarcoidosis Sleep apnea 01/01/2011 C-PAP Unspecified asthma(493.90) Unspecified hypothyroidism Previous Surgical History PAST SURGICAL HISTORY Procedure Laterality Date CATHETER ABLATION, INTRACARDIAC 03/13/13 atrial fibrillation COLONOSCOPY FLX DX W/COLLJ SPEC WHEN PFRMD 10/10/2018 Colonoscopy ESOPHAGOGASTRODUODENOSCOPY TRANSORAL DIAGNOSTIC 10/10/2018 EGD PAST SURGICAL HISTORY OF biopsy- sarcoidosis PAST SURGICAL HISTORY OF sinus polypectomy SEPTOPLASTY 2013 with polypectomy UMBILICAL HERNIA REPAIR 5 OR OLDER 2013 Family History FAMILY HISTORY Problem Relation Age of Onset Stroke Mother Diabetes Father Lipids Father Cancer Father stomach cancer Diabetes Maternal Grandfather Diabetes Maternal Uncle None Sister Patient Allergies ALLERGIES Allergen Reactions Prozac [Fluoxetine * Other: See Comments excessive sedation Seasonal Allergies Unknown Patient does get allergy injections twice per week Current Medications Current Outpatient Medications on File Prior to Visit Medication Sig metoprolol succinate ER (TOPROL XL) 25 mg 24 hr tablet Take 1 tablet by mouth every afternoon. buPROPion XL (WELLBUTRIN XL) 300 mg 24 hr tablet Take 1 tablet by mouth once daily. lisinopril (ZESTRIL) 5 mg tablet Take 1 tablet by mouth every afternoon. pravastatin (PRAVACHOL) 20 mg tablet Take 1 tablet by mouth daily at bedtime. gabapentin (NEURONTIN) 300 mg capsule Take 2 capsules by mouth three times a day for 90 days. albuterol HFA (PROAIR HFA) 90 mcg/actuation inhaler Inhale 2 Puffs as instructed every 6 hours as needed. budesonide-formoterol (SYMBICORT) 160-4.5 mcg/actuation inhaler Inhale 2 Puffs as instructed two times a day. levothyroxine (SYNTHROID) 100 mcg tablet Take 1 tablet by mouth once daily. Take on empty stomach. For thyroid Nebulizer NEBULIZER FOR HOME USE. DX:J40, R06.2 CPAP Settings 7 - 20 cm H2O, suitable mask per pt preference, chin strap, head gear, humidity, tubing, lifetime supplies. G47.33 FAIZAN No current facility-administered medications on file prior to visit. Social History Social History Tobacco Use Smoking status: Every Day Packs/day: 0.20 Years: 20.00 Additional pack years: 0.00 Total pack years: 4.00 Types: Cigarettes Last attempt to quit: 12/08/2012 Years since quittin.2 Smokeless tobacco: Current Types: Chew Vaping Use Vaping Use: Never used Substance Use Topics Alcohol use: Not Currently Comment: Beer on weekends Drug use: No EXAM: BP 136/82 (BP Site: Left Arm, BP Position: Sitting, BP Cuff Size: Regular Adult) Pulse 68 Resp 18 Wt 92.4 kg (203 lb 9.6 oz) BMI 29.64 kg/m? General Appearance: Well appearing, alert, in no acute distr (more content not included)... [facility] 02-25-2024 History of Presen t illness Narrative Chief Complaint Patient presents with: F/U 1 month HPI Keaton Aguila is a 58 year old male who presents here today for 1 month follow up. Here for 1 month follow up on depression. Wellbutrin ws increased last visit to 300 mg daily. He feels this is working well for him at this time. His sleeping patterns are a little better, rather than getting up every 1 hour he is able to sleep a little longer. He has not had any negative issues with the increased Wellbutrin. 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 Started getting allergy shots again. Past medical history, appointments, medications, allergies reviewed. Previous Medical History PAST MEDICAL HISTORY Diagnosis Date Asthma with COPD (HCC) Atrial fibrillation (HCC) ablation 03/13/13 Cervical arthritis 04/17/2017 Cervical radiculopathy 04/17/2017 Cervicothoracic somatic dysfunction 07/31/2011 Depression Elevated prostate specific antigen (PSA) Esophageal reflux Fatty liver disease, nonalcoholic Gallbladder polyp 10/2017 2 mm Hyperlipidemia LDL goal < 100 01/01/2011 Hypertension Hypothyroidism Mild intermittent asthma without complication 08/27/2015 Osteoarthrosis, unspecified whether generalized or localized, other specified sites SERONEGATIVE Other and unspecified hyperlipidemia Peripheral vascular disease (HCC) Reactive depression 03/10/2016 Sarcoidosis Sleep apnea 01/01/2011 C-PAP Unspecified asthma(493.90) Unspecified hypothyroidism Previous Surgical History PAST SURGICAL HISTORY Procedure Laterality Date CATHETER ABLATION, INTRACARDIAC 03/13/13 atrial fibrillation COLONOSCOPY FLX DX W/COLLJ SPEC WHEN PFRMD 10/10/2018 Colonoscopy ESOPHAGOGASTRODUODENOSCOPY TRANSORAL DIAGNOSTIC 10/10/2018 EGD PAST SURGICAL HISTORY OF biopsy- sarcoidosis PAST SURGICAL HISTORY OF sinus polypectomy SEPTOPLASTY 2013 with polypectomy UMBILICAL HERNIA REPAIR 5 OR OLDER 2013 Family History FAMILY HISTORY Problem Relation Age of Onset Stroke Mother Diabetes Father Lipids Father Cancer Father stomach cancer Diabetes Maternal Grandfather Diabetes Maternal Uncle None Sister Patient Allergies ALLERGIES Allergen Reactions Prozac [Fluoxetine * Other: See Comments excessive sedation Seasonal Allergies Unknown Patient does get allergy injections twice per week Current Medications Current Outpatient Medications on File Prior to Visit Medication Sig buPROPion XL (WELLBUTRIN XL) 300 mg 24 hr tablet Take 1 tablet by mouth once daily. lisinopril (ZESTRIL) 5 mg tablet Take 1 tablet by mouth every afternoon. pravastatin (PRAVACHOL) 20 mg tablet Take 1 tablet by mouth daily at bedtime. gabapentin (NEURONTIN) 300 mg capsule Take 2 capsules by mouth three times a day for 90 days. albuterol HFA (PROAIR HFA) 90 mcg/actuation inhaler Inhale 2 Puffs as instructed every 6 hours as needed. budesonide-formoterol (SYMBICORT) 160-4.5 mcg/actuation inhaler Inhale 2 Puffs as instructed two times a day. levothyroxine (SYNTHROID) 100 mcg tablet Take 1 tablet by mouth once daily. Take on empty stomach. For thyroid Nebulizer NEBULIZER FOR HOME USE. DX:J40, R06.2 CPAP Settings 7 - 20 cm H2O, suitable mask per pt preference, chin strap, head gear, humidity, tubing, lifetime supplies. G47.33 FAIZAN No current facility-administered medications on file prior to visit. Social History Social History Tobacco Use Smoking status: Every Day Packs/day: 0.20 Years: 20.00 Additional pack years: 0.00 Total pack years: 4.00 Types: Cigarettes Last attempt to quit: 12/08/2012 Years since quittin.2 Smokeless tobacco: Current Types: Chew Vaping Use Vaping Use: Never used Substance Use Topics Alcohol use: Not Currently Comment: Beer on weekends Drug use: No EXAM: BP 130/80 Pulse 70 Resp 16 Wt 91.7 kg (202 lb 3.2 oz) BMI 29.43 kg/m General Appearance: Well appearing, alert, in no acute distress, well-hydrated, well nourished.. Lungs: Lungs clear to auscultation. No wheezing, rhonchi, rales.. Heart: RRR without murmur, gallop, or rubs. No ectopy. Health Maintenance List Spirometry Never done Shingrix Vaccine(1 of 2) Never done BP Controlled (<130/80) due on 03/10/2020 Colorectal Cancer Screening due on 10/10/2023 Hepatitis C Screening due on 01/02/2025 HIV Screening due on 01/02/2025 Covid-19 Vaccine() due on 01/02/2025 Influenza Vaccine(Season Ended) due on 06/04/2024 Annual PCP Team Chronic Disease Visit due on 02/03/2025 Diabetes Screening due on 11/20/2025 Lipid Screening due on 11/20/2027 DTaP,Tdap,Td Vaccine(2 - Td or Tdap) due on 08/04/2028 Prostate Cancer Screening Discussion due on 12/20/2028 Pneumococcal Vaccine(3 of 3 - PPSV23 or PCV20) due on 2031 Hepatitis B Vaccine Completed Data reviewed None ASSESSMENT/PLAN: 1. Current mild episode of major depressive disorder, unspecified whether recurrent (HCC) - ICD9: 296.21, ICD10: F32.0 Improved Continue Wellbutrin 300 mg daily Follow up 6 months. I agree with the Chief Complaint, ROS, and Past Histories independently gathered by the clinical production support developer and the remaining scribed note accurately describes my personal service to the patient. Medical Decision Making: Problems: Low: Stable chronic illness Risk: Moderate: Drug management Medical Decision Making Level: 3 - Low Mary Martínez MD The documentation for this note was completed by Christa Ivory MA acting as scribe for Mary Martínez MD. February 25, 2024 4:19 PM. Christa Ivory MA documented in this encounter [facility] 02-25-2024 Note HNO ID: [id number] Author: MARY MARTÍNEZ MD Service: ? Author Type: Physician Type: Progress Notes Filed: 02/25/2024 16:43 Note Text: Chief Complaint Patient presents with: F/U 1 month HPI Keaton Aguila is a 58 year old male who presents here today for 1 month follow up. Here for 1 month follow up on depression. Wellbutrin ws increased last visit to 300 mg daily. He feels this is working well for him at this time. His sleeping patterns are a little better, rather than getting up every 1 hour he is able to sleep a little longer. He has not had any negative issues with the increased Wellbutrin. 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 Started getting allergy shots again. Past medical history, appointments, medications, allergies reviewed. Previous Medical History PAST MEDICAL HISTORY Diagnosis Date Asthma with COPD (HCC) Atrial fibrillation (HCC) ablation 03/13/13 Cervical arthritis 04/17/2017 Cervical radiculopathy 04/17/2017 Cervicothoracic somatic dysfunction 07/31/2011 Depression Elevated prostate specific antigen (PSA) Esophageal reflux Fatty liver disease, nonalcoholic Gallbladder polyp 10/2017 2 mm Hyperlipidemia LDL goal < 100 01/01/2011 Hypertension Hypothyroidism Mild intermittent asthma without complication 08/27/2015 Osteoarthrosis, unspecified whether generalized or localized, other specified sites SERONEGATIVE Other and unspecified hyperlipidemia Peripheral vascular disease (HCC) Reactive depression 03/10/2016 Sarcoidosis Sleep apnea 01/01/2011 C-PAP Unspecified asthma(493.90) Unspecified hypothyroidism Previous Surgical History PAST SURGICAL HISTORY Procedure Laterality Date CATHETER ABLATION, INTRACARDIAC 03/13/13 atrial fibrillation COLONOSCOPY FLX DX W/COLLJ SPEC WHEN PFRMD 10/10/2018 Colonoscopy ESOPHAGOGASTRODUODENOSCOPY TRANSORAL DIAGNOSTIC 10/10/2018 EGD PAST SURGICAL HISTORY OF biopsy- sarcoidosis PAST SURGICAL HISTORY OF sinus polypectomy SEPTOPLASTY 2013 with polypectomy UMBILICAL HERNIA REPAIR 5 OR OLDER 2013 Family History FAMILY HISTORY Problem Relation Age of Onset Stroke Mother Diabetes Father Lipids Father Cancer Father stomach cancer Diabetes Maternal Grandfather Diabetes Maternal Uncle None Sister Patient Allergies ALLERGIES Allergen Reactions Prozac [Fluoxetine * Other: See Comments excessive sedation Seasonal Allergies Unknown Patient does get allergy injections twice per week Current Medications Current Outpatient Medications on File Prior to Visit Medication Sig buPROPion XL (WELLBUTRIN XL) 300 mg 24 hr tablet Take 1 tablet by mouth once daily. lisinopril (ZESTRIL) 5 mg tablet Take 1 tablet by mouth every afternoon. pravastatin (PRAVACHOL) 20 mg tablet Take 1 tablet by mouth daily at bedtime. gabapentin (NEURONTIN) 300 mg capsule Take 2 capsules by mouth three times a day for 90 days. albuterol HFA (PROAIR HFA) 90 mcg/actuation inhaler Inhale 2 Puffs as instructed every 6 hours as needed. budesonide-formoterol (SYMBICORT) 160-4.5 mcg/actuation inhaler Inhale 2 Puffs as instructed two times a day. levothyroxine (SYNTHROID) 100 mcg tablet Take 1 tablet by mouth once daily. Take on empty stomach. For thyroid Nebulizer NEBULIZER FOR HOME USE. DX:J40, R06.2 CPAP Settings 7 - 20 cm H2O, suitable mask per pt preference, chin strap, head gear, humidity, tubing, lifetime supplies. G47.33 FAIZAN No current facility-administered medications on file prior to visit. Social History Social History Tobacco Use Smoking status: Every Day Packs/day: 0.20 Years: 20.00 Additional pack years: 0.00 Total pack years: 4.00 Types: Cigarettes Last attempt to quit: 12/08/2012 Years since quittin.2 Smokeless tobacco: Current Types: Chew Vaping Use Vaping Use: Never used Substance Use Topics Alcohol use: Not Currently Comment: Beer on weekends Drug use: No EXAM: BP 130/80 Pulse 70 Resp 16 Wt 91.7 kg (202 lb 3.2 oz) BMI 29.43 kg/m? General Appearance: Well appearing, alert, in no acute distress, well-hydrated, well nourished.. Lungs: Lungs clear to auscultation. No wheezing, rhonchi, rales.. Heart: RRR without murmur, gallop, or rubs. No ectopy. Health Maintenance List Spirometry Never done Shingrix Vaccine(1 of 2) Never done BP Controlled (<130/80) due on 03/10/2020 Colorectal Cancer Screening due on 10/10/2023 Hepatitis C Screening due on 01/02/2025 HIV Screening due on 01/02/2025 Covid-19 Vaccine( season) due on 01/02/2025 Influenza Vaccine(Season Ended) due on 06/04/2024 Annual PCP Team Chronic Disease Visit due on 02/03/2025 Diabetes Screening due on 11/20/2025 Lipid Screening due on 11/20/2027 DTaP,Tdap,Td Vaccine(2 - Td or Tdap) due on 08/04/2028 Prostate Ca (more content not included)... [facility] 02-04-2024 History of Presen t illness Narrative Chief Complaint Patient presents with: F/U 1 month HPI Keaton Aguila is a 58 year old male who presents here today for 1 month follow up. Here for a 1 month follow up on medication. PHQ score was 11. Was started on Wellbutrin 150 mg daily last visit due to increased stress due to his job. Denies noticing any change with use of medication. Hasn't noticed any change in his sleeping habit, still waking up every couple hours. Gets intrusive thoughts while at work where he feels he wants to snap, but doesn't and waits til he gets home. Will talk to his and snap some at her. She does notice he seems more snappy . Does feel the weather has helped some. Tends to get worse during the winter months, but better when the suns shining. Today was a good day, was off work and was outside all day. Denies symptoms getting any worse. No decreased smoking either with use of medication. Is tolerating medication well, denies making him feel any more tired. Past medical history, appointments, medications, allergies reviewed. Previous Medical History PAST MEDICAL HISTORY Diagnosis Date Asthma with COPD (HCC) Atrial fibrillation (HCC) ablation 03/13/13 Cervical arthritis 04/17/2017 Cervical radiculopathy 04/17/2017 Cervicothoracic somatic dysfunction 07/31/2011 Depression Elevated prostate specific antigen (PSA) Esophageal reflux Fatty liver disease, nonalcoholic Gallbladder polyp 10/2017 2 mm Hyperlipidemia LDL goal < 100 01/01/2011 Hypertension Hypothyroidism Mild intermittent asthma without complication 08/27/2015 Osteoarthrosis, unspecified whether generalized or localized, other specified sites SERONEGATIVE Other and unspecified hyperlipidemia Peripheral vascular disease (HCC) Reactive depression 03/10/2016 Sarcoidosis Sleep apnea 01/01/2011 C-PAP Unspecified asthma(493.90) Unspecified hypothyroidism Previous Surgical History PAST SURGICAL HISTORY Procedure Laterality Date CATHETER ABLATION, INTRACARDIAC 03/13/13 atrial fibrillation COLONOSCOPY FLX DX W/COLLJ SPEC WHEN PFRMD 10/10/2018 Colonoscopy ESOPHAGOGASTRODUODENOSCOPY TRANSORAL DIAGNOSTIC 10/10/2018 EGD PAST SURGICAL HISTORY OF biopsy- sarcoidosis PAST SURGICAL HISTORY OF sinus polypectomy SEPTOPLASTY 2013 with polypectomy UMBILICAL HERNIA REPAIR 5 OR OLDER 2013 Family History FAMILY HISTORY Problem Relation Age of Onset Stroke Mother Diabetes Father Lipids Father Cancer Father stomach cancer Diabetes Maternal Grandfather Diabetes Maternal Uncle None Sister Patient Allergies ALLERGIES Allergen Reactions Prozac [Fluoxetine * Other: See Comments excessive sedation Seasonal Allergies Unknown Patient does get allergy injections twice per week Current Medications Current Outpatient Medications on File Prior to Visit Medication Sig lisinopril (ZESTRIL) 5 mg tablet Take 1 tablet by mouth every afternoon. buPROPion XL (WELLBUTRIN XL) 150 mg 24 hr tablet Take 1 tablet by mouth once daily. pravastatin (PRAVACHOL) 20 mg tablet Take 1 tablet by mouth daily at bedtime. gabapentin (NEURONTIN) 300 mg capsule Take 2 capsules by mouth three times a day for 90 days. albuterol HFA (PROAIR HFA) 90 mcg/actuation inhaler Inhale 2 Puffs as instructed every 6 hours as needed. budesonide-formoterol (SYMBICORT) 160-4.5 mcg/actuation inhaler Inhale 2 Puffs as instructed two times a day. levothyroxine (SYNTHROID) 100 mcg tablet Take 1 tablet by mouth once daily. Take on empty stomach. For thyroid Nebulizer NEBULIZER FOR HOME USE. DX:J40, R06.2 CPAP Settings 7 - 20 cm H2O, suitable mask per pt preference, chin strap, head gear, humidity, tubing, lifetime supplies. G47.33 FAIZAN No current facility-administered medications on file prior to visit. Social History Social History Tobacco Use Smoking status: Every Day Packs/day: 0.20 Years: 20.00 Additional pack years: 0.00 Total pack years: 4.00 Types: Cigarettes Last attempt to quit: 12/08/2012 Years since quittin.1 Smokeless tobacco: Current Types: Chew Vaping Use Vaping Use: Never used Substance Use Topics Alcohol use: Not Currently Comment: Beer on weekends Drug use: No EXAM: BP 130/74 (BP Site: Left Arm, BP Position: Sitting, BP Cuff Size: Regular Adult) Pulse 72 Resp 16 Wt 93.8 kg (206 lb 12.8 oz) BMI 30.10 kg/m General Appearance: Well appearing, alert, in no acute distress, well-hydrated, well nourished. and Overweight. Lungs: Lungs clear to auscultation. No wheezing, rhonchi, rales.. Heart: RRR without murmur, gallop, or rubs. No ectopy. Health Maintenance List Spirometry Never done Shingrix Vaccine(1 of 2) Never done BP Controlled (<130/80) due on 03/10/2020 Colorectal Cancer Screening due on 10/10/2023 Hepatitis C Screening due on 01/02/2025 HIV Screening due on 01/02/2025 Covid-19 Vaccine( season) due on 01/02/2025 Influenza Vaccine(Season Ended) due on 06/04/2024 Annual PCP Team Chronic Disease Visit due on 01/02/2025 Diabetes Screening due on 11/20/2025 Lipid Screening due on 11/20/2027 DTaP,Tdap,Td Vaccine(2 - Td or Tdap) due on 08/04/2028 Prostate Cancer Screening Discussion due on 12/20/2028 Pneumococcal Vaccine(3 of 3 - PPSV23 or PCV20) due on 2031 Hepatitis B Vaccine Completed Data reviewed None ASSESSMENT/PLAN: 1. Reactive depression - ICD9: 300.4, ICD10: F32.9 (primary diagnosis) - Increase to 300 mg once daily - Continue current medication regimen.= - BUPROPION XL 300 MG 24 HR TAB 2. Tobacco abuse - ICD9: 305.1, ICD10: Z72.0 - Cessation encouraged. - Physiologic and physical aspects of tobacco addiction as well as strategies for quitting were discussed. - Counseling was given focusing on the harmful effects of this addiction especially given the patient's medical condition(s) which will be worsened because of the chemicals in tobacco. - BUPROPION XL 300 MG 24 HR TAB 1 mo f/u. I agree with the Chief Complaint, ROS, and Past Histories independently gathered by the clinical production support developer and the remaining scribed note accurately describes my personal service to the patient. Medical Decision Making: Problems: Low: Stable chronic illness Risk: Moderate: Drug management Medical Decision Making Level: 3 - Low Mary Martínez MD The documentation for this note was completed by Ida Scales MA acting as scribe for Mary Martínez MD. February 04, 2024 4:17 PM. Ida Scales MA documented in this encounter [facility] 02-04-2024 Note HNO ID: [id number] Author: MARY MARTÍNEZ MD Service: ? Author Type: Physician Type: Progress Notes Filed: 02/04/2024 16:21 Note Text: Chief Complaint Patient presents with: F/U 1 month HPI Keaton Aguila is a 58 year old male who presents here today for 1 month follow up. Here for a 1 month follow up on medication. PHQ score was 11. Was started on Wellbutrin 150 mg daily last visit due to increased stress due to his job. Denies noticing any change with use of medication. Hasn't noticed any change in his sleeping habit, still waking up every couple hours. Gets intrusive thoughts while at work where he feels he wants to snap, but doesn't and waits til he gets home. Will talk to his and snap some at her. She does notice he seems more snappy . Does feel the weather has helped some. Tends to get worse during the winter months, but better when the suns shining. Today was a good day, was off work and was outside all day. Denies symptoms getting any worse. No decreased smoking either with use of medication. Is tolerating medication well, denies making him feel any more tired. Past medical history, appointments, medications, allergies reviewed. Previous Medical History PAST MEDICAL HISTORY Diagnosis Date Asthma with COPD (HCC) Atrial fibrillation (HCC) ablation 03/13/13 Cervical arthritis 04/17/2017 Cervical radiculopathy 04/17/2017 Cervicothoracic somatic dysfunction 07/31/2011 Depression Elevated prostate specific antigen (PSA) Esophageal reflux Fatty liver disease, nonalcoholic Gallbladder polyp 10/2017 2 mm Hyperlipidemia LDL goal < 100 01/01/2011 Hypertension Hypothyroidism Mild intermittent asthma without complication 08/27/2015 Osteoarthrosis, unspecified whether generalized or localized, other specified sites SERONEGATIVE Other and unspecified hyperlipidemia Peripheral vascular disease (HCC) Reactive depression 03/10/2016 Sarcoidosis Sleep apnea 01/01/2011 C-PAP Unspecified asthma(493.90) Unspecified hypothyroidism Previous Surgical History PAST SURGICAL HISTORY Procedure Laterality Date CATHETER ABLATION, INTRACARDIAC 03/13/13 atrial fibrillation COLONOSCOPY FLX DX W/COLLJ SPEC WHEN PFRMD 10/10/2018 Colonoscopy ESOPHAGOGASTRODUODENOSCOPY TRANSORAL DIAGNOSTIC 10/10/2018 EGD PAST SURGICAL HISTORY OF biopsy- sarcoidosis PAST SURGICAL HISTORY OF sinus polypectomy SEPTOPLASTY 2013 with polypectomy UMBILICAL HERNIA REPAIR 5 OR OLDER 2013 Family History FAMILY HISTORY Problem Relation Age of Onset Stroke Mother Diabetes Father Lipids Father Cancer Father stomach cancer Diabetes Maternal Grandfather Diabetes Maternal Uncle None Sister Patient Allergies ALLERGIES Allergen Reactions Prozac [Fluoxetine * Other: See Comments excessive sedation Seasonal Allergies Unknown Patient does get allergy injections twice per week Current Medications Current Outpatient Medications on File Prior to Visit Medication Sig lisinopril (ZESTRIL) 5 mg tablet Take 1 tablet by mouth every afternoon. buPROPion XL (WELLBUTRIN XL) 150 mg 24 hr tablet Take 1 tablet by mouth once daily. pravastatin (PRAVACHOL) 20 mg tablet Take 1 tablet by mouth daily at bedtime. gabapentin (NEURONTIN) 300 mg capsule Take 2 capsules by mouth three times a day for 90 days. albuterol HFA (PROAIR HFA) 90 mcg/actuation inhaler Inhale 2 Puffs as instructed every 6 hours as needed. budesonide-formoterol (SYMBICORT) 160-4.5 mcg/actuation inhaler Inhale 2 Puffs as instructed two times a day. levothyroxine (SYNTHROID) 100 mcg tablet Take 1 tablet by mouth once daily. Take on empty stomach. For thyroid Nebulizer NEBULIZER FOR HOME USE. DX:J40, R06.2 CPAP Settings 7 - 20 cm H2O, suitable mask per pt preference, chin strap, head gear, humidity, tubing, lifetime supplies. G47.33 FAIZAN No current facility-administered medications on file prior to visit. Social History Social History Tobacco Use Smoking status: Every Day Packs/day: 0.20 Years: 20.00 Additional pack years: 0.00 Total pack years: 4.00 Types: Cigarettes Last attempt to quit: 12/08/2012 Years since quittin.1 Smokeless tobacco: Current Types: Chew Vaping Use Vaping Use: Never used Substance Use Topics Alcohol use: Not Currently Comment: Beer on weekends Drug use: No EXAM: BP 130/74 (BP Site: Left Arm, BP Position: Sitting, BP Cuff Size: Regular Adult) Pulse 72 Resp 16 Wt 93.8 kg (206 lb 12.8 oz) BMI 30.10 kg/m? General Appearance: Well appearing, alert, in no acute distress, well-hydrated, well nourished. and Overweight. Lungs: Lungs clear to auscultation. No wheezing, rhonchi, rales.. Heart: RRR without murmur, gallop, or rubs. No ectopy. Health Maintenance List Spirometry Never done Shingrix Vaccine(1 of 2) Never done BP Controlled (<130/80) due on 03/10/2020 Colorectal Cancer Screening due on 10/10/2023 Hepatitis C Scree (more content not included)... [facility] 01-03-2024 History of Presen t illness Narrative Chief Complaint Follow up HPI Keaton Aguila is a 58 year old male who presents here today for follow up Here today for routine Wellness. Had labs done in November through work. He says his cholesterol was better than it had ever been. No bowel, Gi, or urinary concerns. Due for 5 year colonoscopy; tubular adenoma removed in 2018. He will schedule this. Smoking - Currently smoking 1 pack every 3 days and 1 can of chew almost a week. Feels this is related to increased stress. Really wants to quit, but feels he's not able to, with his increased stress. HTN: Taking Lisinopril 5 mg daily. Denies checking BP at home. No chest pains, dizziness, or SOB. Is following with Dr. Bray at [facility]. Was seen by them in July, has f/u next month. Lipid: Taking Pravastatin 20 mg daily. Tolerating well. Tries to watch diet, states that he's lost 6 lbs. Eating less red meat, lots of vegetables. No formal exercise but stays very active at work. Allergies/Asthma: Breathing is doing excellent at this time. Uses Albuterol inhaler prn, Symbicort inhaler 2 puffs BID prn, and has Nebulizer to use prn. Will start receiving his allergy shots tomorrow once weekly at [facility]. Thyroid: Taking Synthroid 100 mcg daily. No missed dosages. FAIZAN: Uses CPAP at 7-20 cm of water. Can't go without his CPAP. Receives supplies through [employer]. Pain: Follows with Physical Medicine for Cervical radiculopathy. Is taking Gabapentin 300 mg 2 pills TID prn. Pt completed Depression questionnaire through [employer]. PHQ-9 score is 14. PHQ-2 score is 2. Currently on no medications at this time. Pt has dx of depression. Pt at this time states he's not depressed and is more stressed due to his work. Has a high stress job, has worked there for 35 years. Has been able to deal with this generally, hoping this improves. He is not interested in counseling. Tried Prozac years ago but fell asleep driving after 2 days on it. HM - Declines Hep C/HIV screening. Declines Covid vaccine. Past medical history, appointments, medications, allergies reviewed. Previous Medical History PAST MEDICAL HISTORY Diagnosis Date Asthma with COPD Atrial fibrillation (HCC) ablation 03/13/13 Cervical arthritis 04/17/2017 Cervical radiculopathy 04/17/2017 Cervicothoracic somatic dysfunction 07/31/2011 Depression Elevated prostate specific antigen (PSA) Esophageal reflux Fatty liver disease, nonalcoholic Gallbladder polyp 10/2017 2 mm Hyperlipidemia LDL goal < 100 01/01/2011 Hypertension Hypothyroidism Mild intermittent asthma without complication 08/27/2015 Osteoarthrosis, unspecified whether generalized or localized, other specified sites SERONEGATIVE Other and unspecified hyperlipidemia Peripheral vascular disease (HCC) Reactive depression 03/10/2016 Sarcoidosis Sleep apnea 01/01/2011 C-PAP Unspecified asthma(493.90) Unspecified hypothyroidism Previous Surgical History PAST SURGICAL HISTORY Procedure Laterality Date CATHETER ABLATION, INTRACARDIAC 03/13/13 atrial fibrillation COLONOSCOPY FLX DX W/COLLJ SPEC WHEN PFRMD 10/10/2018 Colonoscopy ESOPHAGOGASTRODUODENOSCOPY TRANSORAL DIAGNOSTIC 10/10/2018 EGD PAST SURGICAL HISTORY OF biopsy- sarcoidosis PAST SURGICAL HISTORY OF sinus polypectomy SEPTOPLASTY 2013 with polypectomy UMBILICAL HERNIA REPAIR 5 OR OLDER 2013 Family History FAMILY HISTORY Problem Relation Age of Onset Stroke Mother Diabetes Father Lipids Father Cancer Father stomach cancer Diabetes Maternal Grandfather Diabetes Maternal Uncle None Sister Patient Allergies ALLERGIES Allergen Reactions Prozac [Fluoxetine * Other: See Comments excessive sedation Seasonal Allergies Unknown Patient does get allergy injections twice per week Current Medications Current Outpatient Medications on File Prior to Visit Medication Sig pravastatin (PRAVACHOL) 20 mg tablet Take 1 tablet by mouth daily at bedtime. lisinopril (ZESTRIL) 5 mg tablet take 1 tablet by mouth every day gabapentin (NEURONTIN) 300 mg capsule Take 2 capsules by mouth three times a day for 90 days. albuterol HFA (PROAIR HFA) 90 mcg/actuation inhaler Inhale 2 Puffs as instructed every 6 hours as needed. budesonide-formoterol (SYMBICORT) 160-4.5 mcg/actuation inhaler Inhale 2 Puffs as instructed two times a day. levothyroxine (SYNTHROID) 100 mcg tablet Take 1 tablet by mouth once daily. Take on empty stomach. For thyroid albuterol HFA (PROAIR HFA) 90 mcg/actuation inhaler Inhale 2 Puffs as instructed every 4 hours as needed. cetirizine (ZYRTEC) 10 mg tablet Take 1 tablet by mouth once daily. albuterol (PROVENTIL) 2.5 mg /3 mL (0.083 %) nebulizer solution Use 3 mL via nebulizer every 4 hours as needed for Wheezing/Shortness of Breath. Use over 5-15minutes. Nebulizer NEBULIZER FOR HOME USE. DX:J40, R06.2 CPAP Settings 7 - 20 cm H2O, suitable mask per pt preference, chin strap, head gear, humidity, tubing, lifetime supplies. G47.33 FAIZAN No current facility-administered medications on file prior to visit. Social History Social History Tobacco Use Smoking status: Former Packs/day: 0.20 Years: 20.00 Additional pack years: 0.00 Total pack years: 4.00 Types: Cigarettes Quit date: 12/08/2012 Years since quittin.0 Smokeless tobacco: Current Types: Chew Tobacco comments: occasionally will smoke Vaping Use Vaping Use: Never used Substance Use Topics Alcohol use: Not Currently Comment: Beer on weekends Drug use: No EXAM: BP 132/84 (BP Site: Left Arm, BP Position: Sitting, BP Cuff Size: Regular Adult) Pulse 64 Resp 16 Ht 176.5 cm (5' 9.5 ) Wt 95.5 kg (210 lb 9.6 oz) BMI 30.65 kg/m General Appearance: Well appearing, alert, in no acute distress, well-hydrated, well nourished.. Lungs: Lungs clear to auscultation. No wheezing, rhonchi, rales.. Heart: RRR without murmur, gallop, or rubs. No ectopy. Health Maintenance List Spirometry Never done Hepatitis C Screening Never done HIV Screening Never done Shingrix Vaccine(1 of 2) Never done Covid-19 Vaccine( season) Never done Colorectal Cancer Screening due on 10/10/2023 Annual PCP Team Chronic Disease Visit due on 11/30/2023 Influenza Vaccine(Season Ended) due on 06/04/2024 Diabetes Screening due on 11/20/2025 Lipid Screening due on 11/20/2027 DTaP,Tdap,Td Vaccine(2 - Td or Tdap) due on 08/04/2028 Prostate Cancer Screening Discussion due on 12/20/2028 Hepatitis B Vaccine Completed Data reviewed Appointment on 12/21/2023 Component Date Value PSA 12/21/2023 1.46 ASSESSMENT/PLAN: 1. Hypertension, essential - ICD9: 401.9, ICD10: I10 (primary diagnosis) - Controlled - Continue current medications - Recommend home blood pressure monitoring, to bring results to next visit - Encouraged sodium restriction, DASH or Mediterranean diet - Recommend regular aerobic exercise 2. Acquired hypothyroidism - ICD9: 244.9, ICD10: E03.9 - Instructed patient on importance of taking on an empty stomach either first thing in the morning or at bedtime. - continue current dose of Synthroid 3. Hyperlipidemia with target LDL less than 100 - ICD9: 272.4, ICD10: E78.5 - Controlled - Counseled on healthy diet and regular exercise 4. Tobacco abuse - ICD9: 305.1, ICD10: Z72.0 - Cessation encouraged. - Physiologic and physical aspects of tobacco addiction as well as strategies for quitting were discussed. - Counseling was given focusing on the harmful effects of this addiction especially given the patient's medical condition(s) which will be worsened because of the chemicals in tobacco. 5. Reactive depression - ICD9: 300.4, ICD10: F32.9 Will start Wellbutrin - BUPROPION XL 150 MG TAB 6. Sleep apnea, unspecified type - ICD9: 780.57, ICD10: G47.30 Continue CPAP Follow up in 1 month to check on Wellbutrin Medical Decision Making: Problems: Moderate: 2+ stable chronic illnesses and 1+ chronic illnesses with change Risk: Moderate: Drug management Medical Decision Making Level: 4 - Moderate Mary Martínez MD documented in this encounter [facility] 01-03-2024 Note HNO ID: [id number] Author: MARY MARTÍNEZ MD Service: ? Author Type: Physician Type: Progress Notes Filed: 01/03/2024 18:18 Note Text: Chief Complaint Follow up HPI Keaton Aguila is a 58 year old male who presents here today for follow up Here today for routine Wellness. Had labs done in November through work. He says his cholesterol was better than it had ever been. No bowel, Gi, or urinary concerns. Due for 5 year colonoscopy; tubular adenoma removed in 2018. He will schedule this. Smoking - Currently smoking 1 pack every 3 days and 1 can of chew almost a week. Feels this is related to increased stress. Really wants to quit, but feels he's not able to, with his increased stress. HTN: Taking Lisinopril 5 mg daily. Denies checking BP at home. No chest pains, dizziness, or SOB. Is following with Dr. Bray at [facility]. Was seen by them in July, has f/u next month. Lipid: Taking Pravastatin 20 mg daily. Tolerating well. Tries to watch diet, states that he's lost 6 lbs. Eating less red meat, lots of vegetables. No formal exercise but stays very active at work. Allergies/Asthma: Breathing is doing excellent at this time. Uses Albuterol inhaler prn, Symbicort inhaler 2 puffs BID prn, and has Nebulizer to use prn. Will start receiving his allergy shots tomorrow once weekly at [facility]. Thyroid: Taking Synthroid 100 mcg daily. No missed dosages. FAIZAN: Uses CPAP at 7-20 cm of water. Can't go without his CPAP. Receives supplies through [employer]. Pain: Follows with Physical Medicine for Cervical radiculopathy. Is taking Gabapentin 300 mg 2 pills TID prn. Pt completed Depression questionnaire through [employer]. PHQ-9 score is 14. PHQ-2 score is 2. Currently on no medications at this time. Pt has dx of depression. Pt at this time states he's not depressed and is more stressed due to his work. Has a high stress job, has worked there for 35 years. Has been able to deal with this generally, hoping this improves. He is not interested in counseling. Tried Prozac years ago but fell asleep driving after 2 days on it. HM - Declines Hep C/HIV screening. Declines Covid vaccine. Past medical history, appointments, medications, allergies reviewed. Previous Medical History PAST MEDICAL HISTORY Diagnosis Date Asthma with COPD Atrial fibrillation (HCC) ablation 03/13/13 Cervical arthritis 04/17/2017 Cervical radiculopathy 04/17/2017 Cervicothoracic somatic dysfunction 07/31/2011 Depression Elevated prostate specific antigen (PSA) Esophageal reflux Fatty liver disease, nonalcoholic Gallbladder polyp 10/2017 2 mm Hyperlipidemia LDL goal < 100 01/01/2011 Hypertension Hypothyroidism Mild intermittent asthma without complication 08/27/2015 Osteoarthrosis, unspecified whether generalized or localized, other specified sites SERONEGATIVE Other and unspecified hyperlipidemia Peripheral vascular disease (HCC) Reactive depression 03/10/2016 Sarcoidosis Sleep apnea 01/01/2011 C-PAP Unspecified asthma(493.90) Unspecified hypothyroidism Previous Surgical History PAST SURGICAL HISTORY Procedure Laterality Date CATHETER ABLATION, INTRACARDIAC 03/13/13 atrial fibrillation COLONOSCOPY FLX DX W/COLLJ SPEC WHEN PFRMD 10/10/2018 Colonoscopy ESOPHAGOGASTRODUODENOSCOPY TRANSORAL DIAGNOSTIC 10/10/2018 EGD PAST SURGICAL HISTORY OF biopsy- sarcoidosis PAST SURGICAL HISTORY OF sinus polypectomy SEPTOPLASTY 2013 with polypectomy UMBILICAL HERNIA REPAIR 5 OR OLDER 2013 Family History FAMILY HISTORY Problem Relation Age of Onset Stroke Mother Diabetes Father Lipids Father Cancer Father stomach cancer Diabetes Maternal Grandfather Diabetes Maternal Uncle None Sister Patient Allergies ALLERGIES Allergen Reactions Prozac [Fluoxetine * Other: See Comments excessive sedation Seasonal Allergies Unknown Patient does get allergy injections twice per week Current Medications Current Outpatient Medications on File Prior to Visit Medication Sig pravastatin (PRAVACHOL) 20 mg tablet Take 1 tablet by mouth daily at bedtime. lisinopril (ZESTRIL) 5 mg tablet take 1 tablet by mouth every day gabapentin (NEURONTIN) 300 mg capsule Take 2 capsules by mouth three times a day for 90 days. albuterol HFA (PROAIR HFA) 90 mcg/actuation inhaler Inhale 2 Puffs as instructed every 6 hours as needed. budesonide-formoterol (SYMBICORT) 160-4.5 mcg/actuation inhaler Inhale 2 Puffs as instructed two times a day. levothyroxine (SYNTHROID) 100 mcg tablet Take 1 tablet by mouth once daily. Take on empty stomach. For thyroid albuterol HFA (PROAIR HFA) 90 mcg/actuation inhaler Inhale 2 Puffs as instructed every 4 hours as needed. cetirizine (ZYRTEC) 10 mg tablet Take 1 tablet by mouth once daily. albuterol (PROVENTIL) 2.5 mg /3 mL (0.083 %) nebulizer solution Use 3 mL via nebulizer every 4 hours as needed for Wheezing/Shortness of Breath. Use over (more content not included)... [facility] 12-20-2023 Miscellaneous Notes The following approved medication requests have been transmitted electronically. Requested Prescriptions Pending Prescriptions Disp Refills pravastatin (PRAVACHOL) 20 mg tablet 90 tablet 3 Sig: Take 1 tablet by mouth daily at bedtime. Dmitry Coronado APRN.CALIN Patient has been identified by name and date of : Yes Patient phones for refill(s): Requested Prescriptions Pending Prescriptions Disp Refills pravastatin (PRAVACHOL) 20 mg tablet 90 tablet 3 Sig: Take 1 tablet by mouth daily at bedtime. Date of last office visit in primary care: 11/30/2022 Date of next office visit in primary care: 01/03/2024 Please advise. Thank you. [place] LPN. documented in this encounter [facility] 12-07-2023 Miscellaneous Notes Patient active MyChart. Patient notified via [employer] message. Tyson Rudolph MA Due for a yearly exam. 90 days sent. The following approved medication requests have been transmitted electronically. Requested Prescriptions Pending Prescriptions Disp Refills lisinopril (ZESTRIL) 5 mg tablet [Pharmacy Med Name: LISINOPRIL 5 MG TABLET] 90 tablet 0 Sig: take 1 tablet by mouth every day Dmitry Coronado APRN.[employer] Patient has been identified by name and date of : Yes, Provider Mary Martínez MD Date December 07, 2023 Time 9:51 AM Patient phones for refill(s): Requested Prescriptions Pending Prescriptions Disp Refills lisinopril (ZESTRIL) 5 mg tablet [Pharmacy Med Name: LISINOPRIL 5 MG TABLET] 90 tablet 3 Sig: take 1 tablet by mouth every day Date of last office visit in primary care: 11/30/2022 Date of next office visit in primary care: none Please advise. Thank you. Christa Ivory Ma. documented in this encounter [facility] 11-29-2023 Note HNO ID: [id number] Author: YELENA BROWN, DO Service: ? Author Type: Physician Type: Progress Notes Filed: 12/02/2023 15:35 Note Text: This is a virtual visit using weave energyt video visit. It required patient-provider interaction for the medical decision making as documented below. I have communicated my name and active licensure. The patient's identity and physical location were verified at the time of this visit. Either the patient or their legal medicare sales representative has been informed of the risks and benefits of -- and alternatives to -- treatment through a remote evaluation and consents to proceed with the evaluation remotely. SUBJECTIVE HISTORY OF PRESENT ILLNESS: Keaton Aguila is a 58 year old male who presents with a chief complaint of arm pain Pain in left arm is worse. N/t with weakness in SF/RF. Last week was right arm. Worse at night Neck pain is constant. Chiro helps for neck, not arms. Pruritus in the arms comes goes. Gabapentin 300mg tid not helping PAIN EVALUATION 11/22/2023 1215 Pain Level: 2 Pain Location: Shoulder-Right Description: Aching;Itching;Numbness;Sore;Sta bbing;Stiffness Duration Amount of Time: 3 Frequency: Intermittent Intervention/Comfort measure: Exercise;Massage;Positioning YELLOW AND BLUE FLAGS No-Neg Attitude; Back Pain is Disabling No-Avoiding Activity (for Fear of Pain) No-Depression or Anxiety Disorders No-Social Problems No-Substance Use Disorder No-Job Dissatisfaction No-Financial Disincentives Patient Entered Questionnaires Spine Questions 10/12/2023 11/22/2023 Pain Location: Upper back/torso Upper back/torso Pain Duration: More than 5 years - Pain over last 6 months: Every day or nearly every day in the past 6 months - Symptoms from neck/cervical spine: Yes Yes Employment Status: Working now - Involved in law suit/legal claim: No - Spine Red Flags 10/12/2023 Any type of cancer: No Unexplained fever: No Bowel or bladder disfunction: No Unintentional weight loss: No Osteoporosis: No Neck Questionnaires 10/12/2023 11/22/2023 Benzel Modified ILAN Score 16 (A lower score indicates increased pain and issues.) 17 (A lower score indicates increased pain and issues.) PROMIS Score Percentiles Physical Health 02/27/2020 10/12/2023 11/22/2023 Physical Function Percentile 42 27* 38 Sleep Percentile - 14 10 Fatigue Percentile 10 10 8 Pain Interference Percentile - 12 12 PROMIS SOCIAL ROLE SCORE 02/27/2020 10/12/2023 11/22/2023 Social Role Satisfaction Percentile 24* 10 10 PROMIS Global Health Scale 10/02/2021 11/26/2022 10/12/2023 Physical Health Percentile 31 41 31 Mental Health Percentile 43 26* 34 Percentiles provide an indication of how the patient's score ranks in relation to the general population. Higher percentile rankings indicate better function/quality of life. 50th percentile is the average of the general population and indicates half of respondents had a worse score. Depression Screening: PHQ-9 11/26/2022 10/12/2023 11/22/2023 Score 3 9 17 PHQ-9 Self Harm 11/26/2022 10/12/2023 11/22/2023 Question 9 Not at all Not at all Not at all PHQ-9 Self-Harm (Item 9) response options: 0 Not at all 1 Several days 2 More than half the days 3 Nearly every day PHQ-9 Levels: 0-4 No - mild depression 5-9 Mild depression 10-14 Moderate depression 15-19 Moderately severe depression 20-27 Severe depression ACTIVE PROBLEM LIST Acquired Hypothyroidism Sarcoidosis Sleep Apnea Hyperlipidemia With Target Ldl Less Than 100 Cervicothoracic Somatic Dysfunction Tobacco Abuse Venous Insufficiency History of Atrial Fibrillation Without Current Medication Mild Intermittent Asthma Without Complication Reactive Depression Cervical Radiculopathy Cervical Arthritis Screening for Colon Cancer Abdominal Pain Gerd With Esophagitis Renal Stone Breast Mass in Male PAST MEDICAL HISTORY Diagnosis Date Asthma with COPD Atrial fibrillation (HCC) ablation 03/13/13 Cervical arthritis 04/17/2017 Cervical radiculopathy 04/17/2017 Cervicothoracic somatic dysfunction 07/31/2011 Depression Elevated prostate specific antigen (PSA) Esophageal reflux Fatty liver disease, nonalcoholic Gallbladder polyp 10/2017 2 mm Hyperlipidemia LDL goal < 100 01/01/2011 Hypertension Hypothyroidism Mild intermittent asthma without complication 08/27/2015 Osteoarthrosis, unspecified whether generalized or localized, other specified sites SERONEGATIVE Other and unspecified hyperlipidemia Peripheral vascular disease (HCC) Reactive depression 03/10/2016 Sarcoidosis Sleep apnea 01/01/2011 C-PAP Unspecified asthma(493.90) Unspecified hypothyroidism PAST SURGICAL HISTORY Procedure Laterality Date CATHETER ABLATION, INTRACARDIAC 03/13/13 atrial fibrillation COLONOSCOPY FLX DX W/COLLJ SPEC WHEN PFRMD 10/10/2018 Colonoscopy ESOPHAGOGASTRODUODENOSCOPY TRANSORAL DIAGNOSTIC 10/10/2018 EGD (more content not included)... [facility] 11-29-2023 History of Presen t illness Narrative Images from the original note were not included. This is a virtual visit using LEY[employer] video visit. It required patient-provider interaction for the medical decision making as documented below. I have communicated my name and active licensure. The patient's identity and physical location were verified at the time of this visit. Either the patient or their legal medicare sales representative has been informed of the risks and benefits of -- and alternatives to -- treatment through a remote evaluation and consents to proceed with the evaluation remotely. SUBJECTIVE HISTORY OF PRESENT ILLNESS: Keaton Aguila is a 58 year old male who presents with a chief complaint of arm pain Pain in left arm is worse. N/t with weakness in SF/RF. Last week was right arm. Worse at night Neck pain is constant. Chiro helps for neck, not arms. Pruritus in the arms comes goes. Gabapentin 300mg tid not helping PAIN EVALUATION 11/22/2023 1215 Pain Level: 2 Pain Location: Shoulder-Right Description: Aching;Itching;Numbness;Sore;Sta bbing;Stiffness Duration Amount of Time: 3 Frequency: Intermittent Intervention/Comfort measure: Exercise;Massage;Positioning YELLOW & BLUE FLAGS No-Neg Attitude; Back Pain is Disabling No-Avoiding Activity (for Fear of Pain) No-Depression or Anxiety Disorders No-Social Problems No-Substance Use Disorder No-Job Dissatisfaction No-Financial Disincentives Patient Entered Questionnaires Spine Questions 10/12/2023 11/22/2023 Pain Location: Upper back/torso Upper back/torso Pain Duration: More than 5 years - Pain over last 6 months: Every day or nearly every day in the past 6 months - Symptoms from neck/cervical spine: Yes Yes Employment Status: Working now - Involved in law suit/legal claim: No - Spine Red Flags 10/12/2023 Any type of cancer: No Unexplained fever: No Bowel or bladder disfunction: No Unintentional weight loss: No Osteoporosis: No Neck Questionnaires 10/12/2023 11/22/2023 Benzel Modified ILAN Score 16 (A lower score indicates increased pain and issues.) 17 (A lower score indicates increased pain and issues.) PROMIS Score Percentiles Physical Health 02/27/2020 10/12/2023 11/22/2023 Physical Function Percentile 42 27* 38 Sleep Percentile - 14 10 Fatigue Percentile 10 10 8 Pain Interference Percentile - 12 12 PROMIS SOCIAL ROLE SCORE 02/27/2020 10/12/2023 11/22/2023 Social Role Satisfaction Percentile 24* 10 10 PROMIS Global Health Scale 10/02/2021 11/26/2022 10/12/2023 Physical Health Percentile 31 41 31 Mental Health Percentile 43 26* 34 Percentiles provide an indication of how the patient's score ranks in relation to the general population. Higher percentile rankings indicate better function/quality of life. 50th percentile is the average of the general population and indicates half of respondents had a worse score. Depression Screening: PHQ-9 11/26/2022 10/12/2023 11/22/2023 Score 3 9 17 PHQ-9 Self Harm 11/26/2022 10/12/2023 11/22/2023 Question 9 Not at all Not at all Not at all PHQ-9 Self-Harm (Item 9) response options: 0 Not at all 1 Several days 2 More than half the days 3 Nearly every day PHQ-9 Levels: 0-4 No - mild depression 5-9 Mild depression 10-14 Moderate depression 15-19 Moderately severe depression 20-27 Severe depression ACTIVE PROBLEM LIST Acquired Hypothyroidism Sarcoidosis Sleep Apnea Hyperlipidemia With Target Ldl Less Than 100 Cervicothoracic Somatic Dysfunction Tobacco Abuse Venous Insufficiency History of Atrial Fibrillation Without Current Medication Mild Intermittent Asthma Without Complication Reactive Depression Cervical Radiculopathy Cervical Arthritis Screening for Colon Cancer Abdominal Pain Gerd With Esophagitis Renal Stone Breast Mass in Male PAST MEDICAL HISTORY Diagnosis Date Asthma with COPD Atrial fibrillation (HCC) ablation 03/13/13 Cervical arthritis 04/17/2017 Cervical radiculopathy 04/17/2017 Cervicothoracic somatic dysfunction 07/31/2011 Depression Elevated prostate specific antigen (PSA) Esophageal reflux Fatty liver disease, nonalcoholic Gallbladder polyp 10/2017 2 mm Hyperlipidemia LDL goal < 100 01/01/2011 Hypertension Hypothyroidism Mild intermittent asthma without complication 08/27/2015 Osteoarthrosis, unspecified whether generalized or localized, other specified sites SERONEGATIVE Other and unspecified hyperlipidemia Peripheral vascular disease (HCC) Reactive depression 03/10/2016 Sarcoidosis Sleep apnea 01/01/2011 C-PAP Unspecified asthma(493.90) Unspecified hypothyroidism PAST SURGICAL HISTORY Procedure Laterality Date CATHETER ABLATION, INTRACARDIAC 03/13/13 atrial fibrillation COLONOSCOPY FLX DX W/COLLJ SPEC WHEN PFRMD 10/10/2018 Colonoscopy ESOPHAGOGASTRODUODENOSCOPY TRANSORAL DIAGNOSTIC 10/10/2018 EGD PAST SURGICAL HISTORY OF biopsy- sarcoidosis PAST SURGICAL HISTORY OF sinus polypectomy SEPTOPLASTY 2014 with polypectomy UMBILICAL HERNIA REPAIR 5 OR OLDER 2013 Social History Tobacco Use Smoking status: Former Packs/day: 0.20 Years: 20.00 Additional pack years: 0.00 Total pack years: 4.00 Types: Cigarettes Quit date: 12/08/2012 Years since quittin.9 Smokeless tobacco: Current Types: Chew Tobacco comments: occasionally will smoke Vaping Use Vaping Use: Never used Substance Use Topics Alcohol use: Not Currently Comment: Beer on weekends Drug use: No FAMILY HISTORY Problem Relation Age of Onset Stroke Mother Diabetes Father Lipids Father Cancer Father stomach cancer Diabetes Maternal Grandfather Diabetes Maternal Uncle None Sister ALLERGIES Allergen Reactions Prozac [Fluoxetine * Other: See Comments excessive sedation Seasonal Allergies Unknown Patient does get allergy injections twice per week CURRENT MEDICATIONS: albuterol HFA (PROAIR HFA) 90 mcg/actuation inhaler Inhale 2 Puffs as instructed every 6 hours as needed. budesonide-formoterol (SYMBICORT) 160-4.5 mcg/actuation inhaler Inhale 2 Puffs as instructed two times a day. levothyroxine (SYNTHROID) 100 mcg tablet Take 1 tablet by mouth once daily. Take on empty stomach. For thyroid albuterol HFA (PROAIR HFA) 90 mcg/actuation inhaler Inhale 2 Puffs as instructed every 4 hours as needed. cetirizine (ZYRTEC) 10 mg tablet Take 1 tablet by mouth once daily. pravastatin (PRAVACHOL) 20 mg tablet TAKE 1 TABLET BY MOUTH EVERYDAY AT BEDTIME lisinopril (ZESTRIL, PRINIVIL) 5 mg tablet TAKE 1 TABLET BY MOUTH EVERY DAY albuterol (PROVENTIL) 2.5 mg /3 mL (0.083 %) nebulizer solution Use 3 mL via nebulizer every 4 hours as needed for Wheezing/Shortness of Breath. Use over 5-15minutes. Nebulizer NEBULIZER FOR HOME USE. [id number], R06.2 CPAP Settings 7 - 20 cm H2O, suitable mask per pt preference, chin strap, head gear, humidity, tubing, lifetime supplies. G47.33 FAIZAN REVIEW OF SYSTEMS: OBJECTIVE: PHYSICAL EXAM There were no vitals taken for this visit. Data Review: [facility] records independently reviewed 11/12/2023 3:38 PM - Radiology, [place] In Impression IMPRESSION: No evidence of an acute intracranial process. Minimal white matter hyperintensities which are nonspecific. Bilateral mastoid effusion. ASSESSMENT/PLAN (M54.12) Cervical radiculopathy (primary encounter diagnosis) Plan: EMG(NEURO/NI) (R29.2) Generalized hyperreflexia Plan: EMG(NEURO/NI) (D86.9) Sarcoidosis Plan: EMG(NEURO/NI) Fortunately his brain and cervical spine do not show evidence of sarcoidosis. The exact etiology of his symptoms is not completely clear. It is possible that his arm symptoms are related to cervical radiculopathy. However the cervical MRI shows disc osteophyte complex at C6-7 there is really only rightward and no clear narrowing to the left explain the left-sided symptoms. Recommend proceed with EMG nerve conduction study to evaluate for other neuropathy. He will follow-up after EMG nerve conduction studies are complete. This note was partially generated using [employer] voice recognition system. SIGNATURE: Yelena Brown DO PATIENT NAME: Keaton Aguila DATE: November 29, 2023 TIME: 4:28 PM documented in this encounter [facility] 11-12-2023 History of Presen t illness Narrative Radiology Service Progress Note PATIENT NAME: Keaton Aguila DATE OF SERVICE: November 12, 2023 TIME: 2:28 PM PATIENT IDENTITY VERIFICATION COMPLETED USING TWO (2) IDENTIFIERS: Name and Date of confirmed by patient verbally. FALL SCREENING: Has the patient had 2 falls in the last year or 1 fall with injury or currently using an Ambulatory Assistive Device (Walker, Cane, Wheelchair, Crutches, etc.)? No PATIENT GENDER DATA: Male PATIENT RELEVANT IMPLANT DATA REVIEWED: Yes PATIENT PRESENTS WITH AN IMPLANTABLE OR ATTACHED EYE SURGEON: No RADIOLOGY DEPARTMENT: MR; Exam(s) Completed: Head: Multiple Sclerosis PERIPHERAL IV DATA: Not applicable SIGNED BY: OLEGARIO Evans) November 12, 2023 2:28 PM documented in this encounter [facility] 11-12-2023 Note HNO ID: [id number] Author: NALLELY JENKINS RT(R) Service: ? Author Type: Technologist Type: Progress Notes Filed: 11/12/2023 14:28 Note Text: Radiology Service Progress Note PATIENT NAME: Keaton Aguila DATE OF SERVICE: November 12, 2023 TIME: 2:28 PM PATIENT IDENTITY VERIFICATION COMPLETED USING TWO (2) IDENTIFIERS: Name and Date of confirmed by patient verbally. FALL SCREENING: Has the patient had 2 falls in the last year or 1 fall with injury or currently using an Ambulatory Assistive Device (Walker, Cane, Wheelchair, Crutches, etc.)? No PATIENT GENDER DATA: Male PATIENT RELEVANT IMPLANT DATA REVIEWED: Yes PATIENT PRESENTS WITH AN IMPLANTABLE OR ATTACHED EYE SURGEON: No RADIOLOGY DEPARTMENT: MR; Exam(s) Completed: Head: Multiple Sclerosis PERIPHERAL IV DATA: Not applicable SIGNED BY: RT Cristina(R) November 12, 2023 2:28 PM [facility] 10-18-2023 Note HNO ID: [id number] Author: YELENA BROWN, DO Service: ? Author Type: Physician Type: Progress Notes Filed: 10/19/2023 08:44 Note Text: Spine Care Path Neck Pain - Chronic (> 12 weeks) Initial Exam SUBJECTIVE HISTORY OF PRESENT ILLNESS: Keaton Aguila is a 58 year old male who presents with a chief complaint of neck pain Chronic neck pain many years. Saw a spine doctor who checked reflexes recommended come here..numbness in arm R>L Worse: sitting at computer, driving. Night trouble getting comfortable. H/o Pruritus in arms, thought was due to pinched nerve. Last episode 06/2022. Also feeling of RLS in lower neck/upper back. Right leg feels like it wants to run on its own constantly. Blurred vision in right eye. Possibly some problems with balance over the last year. H/o injection 10 years ago. No clear relief Chiro helps for 1-2 days. None for 4 years. PT pre-covid did not help. PAIN EVALUATION 10/12/2023 1419 10/18/2023 1524 Pain Level: 3 2 Pain Location: Shoulder-Right -- upper back Description: Dull;Itching;Numbness;Radiating; Sharp;Stiffness Aching;Numbness Duration Amount of Time: 24 -- Duration Units: -- Years Frequency: Continuous Continuous Intervention/Comfort measure: Cold;Exercise;Massage;Positionin g -- Comments: The pain varies from numb-not much pain to sharp persistent aching pain that can usually go up to 7 on the pain scale -- Litigation: No Workers' Compensation: No YELLOW AND BLUE FLAGS No-Neg Attitude; Back Pain is Disabling No-Avoiding Activity (for Fear of Pain) No-Depression or Anxiety Disorders No-Social Problems No-Substance Use Disorder No-Job Dissatisfaction No-Financial Disincentives Patient Entered Questionnaires Spine Questions 10/12/2023 Pain Location: Upper back/torso Pain Duration: More than 5 years Pain over last 6 months: Every day or nearly every day in the past 6 months Symptoms from neck/cervical spine: Yes Employment Status: Working now Involved in law suit/legal claim: No Spine Red Flags 10/12/2023 Any type of cancer: No Unexplained fever: No Bowel or bladder disfunction: No Unintentional weight loss: No Osteoporosis: No Neck Questionnaires 10/12/2023 Benzel Modified ILAN Score 16 (A lower score indicates increased pain and issues.) PROMIS Score Percentiles Physical Health 01/15/2020 02/27/2020 10/12/2023 Physical Function Percentile 18* 42 27* Sleep Percentile - - 14 Fatigue Percentile 18* 10 10 Pain Interference Percentile 4 - 12 PROMIS SOCIAL ROLE SCORE 01/15/2020 02/27/2020 10/12/2023 Social Role Satisfaction Percentile 10 24* 10 PROMIS Global Health Scale 10/02/2021 11/26/2022 10/12/2023 Physical Health Percentile 31 41 31 Mental Health Percentile 43 26* 34 Percentiles provide an indication of how the patient's score ranks in relation to the general population. Higher percentile rankings indicate better function/quality of life. 50th percentile is the average of the general population and indicates half of respondents had a worse score. Depression Screening: PHQ-9 05/16/2021 11/26/2022 10/12/2023 Score 14 3 9 PHQ-9 Self Harm 05/16/2021 11/26/2022 10/12/2023 Question 9 Not at all Not at all Not at all PHQ-9 Self-Harm (Item 9) response options: 0 Not at all 1 Several days 2 More than half the days 3 Nearly every day PHQ-9 Levels: 0-4 No - mild depression 5-9 Mild depression 10-14 Moderate depression 15-19 Moderately severe depression 20-27 Severe depression ACTIVE PROBLEM LIST Acquired Hypothyroidism Sarcoidosis Sleep Apnea Hyperlipidemia With Target Ldl Less Than 100 Cervicothoracic Somatic Dysfunction Tobacco Abuse Venous Insufficiency History of Atrial Fibrillation Without Current Medication Mild Intermittent Asthma Without Complication Reactive Depression Cervical Radiculopathy Cervical Arthritis Screening for Colon Cancer Abdominal Pain Gerd With Esophagitis Renal Stone Breast Mass in Male PAST MEDICAL HISTORY Diagnosis Date Asthma with COPD Atrial fibrillation (HCC) ablation 03/13/13 Cervical arthritis 04/17/2017 Cervical radiculopathy 04/17/2017 Cervicothoracic somatic dysfunction 07/31/2011 Depression Elevated prostate specific antigen (PSA) Esophageal reflux Fatty liver disease, nonalcoholic Gallbladder polyp 10/2017 2 mm Hyperlipidemia LDL goal < 100 01/01/2011 Hypertension Hypothyroidism Mild intermittent asthma without complication 08/27/2015 Osteoarthrosis, unspecified whether generalized or localized, other specified sites SERONEGATIVE Other and unspecified hyperlipidemia Peripheral vascular disease (HCC) Reactive depression 03/10/2016 Sarcoidosis Sleep apnea 01/01/2011 C-PAP Unspecified asthma(493.90) Unspecified hypothyroidism PAST SURGICAL HISTORY Procedure Laterality Date CATHETER ABLATION, INTRACARDIAC 03/13/13 atrial fibrillation COLONOSCOPY FLX DX W/COLLJ SPEC WHEN PFRMD (more content not included)... [facility] 08-17-2023 Note HNO ID: [id number] Author: Hayder Santacruz APRN.[employer] Service: ? Author Type: Nurse Practitioner Type: Progress Notes Filed: 08/17/2023 1:15 PM Note Text: Subjective HPI Nontoxic-appearing male presents urgent care chief complaint flulike symptoms. Duration of symptoms 1 day. Associated symptoms nasal congestion cough fatigue body aches. Does have transient chills. No known sick contacts. 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 Presents today for evaluation. Denies any current discomfort. Does have mild pain with coughing. States history of bronchitis this feels similar. Does have history of asthma with COPD. Denies any fever productive cough chest pain shortness of breath pleuritic pain hemoptysis nausea vomiting abdominal pain change in bowel or bladder habits. Past medical history prescription medication use and allergies reviewed. .Patient presents with: Cough: x1Days PAST MEDICAL HISTORY Diagnosis Date Asthma with COPD Atrial fibrillation (HCC) ablation 03/13/13 Cervical arthritis 04/17/2017 Cervical radiculopathy 04/17/2017 Cervicothoracic somatic dysfunction 07/31/2011 Depression Elevated prostate specific antigen (PSA) Esophageal reflux Fatty liver disease, nonalcoholic Gallbladder polyp 10/2017 2 mm Hyperlipidemia LDL goal < 100 01/01/2011 Hypertension Hypothyroidism Mild intermittent asthma without complication 08/27/2015 Osteoarthrosis, unspecified whether generalized or localized, other specified sites SERONEGATIVE Other and unspecified hyperlipidemia Peripheral vascular disease (HCC) Reactive depression 03/10/2016 Sarcoidosis Sleep apnea 01/01/2011 C-PAP Unspecified asthma(493.90) Unspecified hypothyroidism PAST SURGICAL HISTORY Procedure Laterality Date CATHETER ABLATION, INTRACARDIAC 03/13/13 atrial fibrillation COLONOSCOPY FLX DX W/COLLJ SPEC WHEN PFRMD 10/10/2018 Colonoscopy ESOPHAGOGASTRODUODENOSCOPY TRANSORAL DIAGNOSTIC 10/10/2018 EGD PAST SURGICAL HISTORY OF biopsy- sarcoidosis PAST SURGICAL HISTORY OF sinus polypectomy SEPTOPLASTY 2013 with polypectomy UMBILICAL HERNIA REPAIR 5 OR OLDER 2013 ALLERGIES Prozac [Fluoxetine Hcl] and Seasonal Allergies MEDICATIONS budesonide-formoterol (SYMBICORT) 160-4.5 mcg/actuation inhaler Inhale 2 Puffs as instructed two times a day. levothyroxine (SYNTHROID) 100 mcg tablet Take 1 tablet by mouth once daily. Take on empty stomach. For thyroid albuterol HFA (PROAIR HFA) 90 mcg/actuation inhaler Inhale 2 Puffs as instructed every 4 hours as needed. cetirizine (ZYRTEC) 10 mg tablet Take 1 tablet by mouth once daily. pravastatin (PRAVACHOL) 20 mg tablet TAKE 1 TABLET BY MOUTH EVERYDAY AT BEDTIME lisinopril (ZESTRIL, PRINIVIL) 5 mg tablet TAKE 1 TABLET BY MOUTH EVERY DAY albuterol (PROVENTIL) 2.5 mg /3 mL (0.083 %) nebulizer solution Use 3 mL via nebulizer every 4 hours as needed for Wheezing/Shortness of Breath. Use over 5-15minutes. Nebulizer NEBULIZER FOR HOME USE. DX:J40, R06.2 CPAP Settings 7 - 20 cm H2O, suitable mask per pt preference, chin strap, head gear, humidity, tubing, lifetime supplies. G47.33 FAIZAN FAMILY HISTORY Problem Relation Age of Onset Stroke Mother Diabetes Father Lipids Father Cancer Father stomach cancer Diabetes Maternal Grandfather Diabetes Maternal Uncle None Sister Social History Tobacco Use Smoking status: Former Packs/day: 0.20 Years: 20.00 Additional pack years: 0.00 Total pack years: 4.00 Types: Cigarettes Quit date: 12/08/2012 Years since quittin.6 Smokeless tobacco: Current Types: Chew Tobacco comments: occasionally will smoke Vaping Use Vaping Use: Never used Substance Use Topics Alcohol use: Not Currently Comment: Beer on weekends Drug use: No BP 120/80 Pulse 62 Temp 36.3 ?C (97.4 ?F) Resp 16 Wt 97 kg (213 lb 12.8 oz) SpO2 98% BMI 31.57 kg/m? Review of Systems Constitutional: Positive for chills and malaise/fatigue. Negative for fever. HENT: Positive for congestion. Negative for ear discharge, ear pain, sinus pain and sore throat. Eyes: Negative for blurred vision, pain, discharge and redness. Respiratory: Positive for cough. Negative for hemoptysis, sputum production, shortness of breath, wheezing and stridor. Cardiovascular: Negative for chest pain. Gastrointestinal: Negative for abdominal pain, diarrhea, nausea and vomiting. Musculoskeletal: Positive for myalgias. Skin: Negative for itching and rash. Neurological: Negative for dizziness and headaches. Objective Physical Exam Constitutional: General: He is not in acute distress. Appearance: He is not diaphoretic. HENT: Head: Normocephalic. Jaw: No trismus, tenderness, swelling or pain on movement. Nose: Congestion present. Mouth/Throat: Mouth: Mucous membranes are moist. Pharynx: Oropharynx is clear. Uvula midline. No pharyngeal swelling, oropharynge (more content not included)... [facility] 08-17-2023 History of Presen t illness Narrative Subjective HPI Nontoxic-appearing male presents urgent care chief complaint flulike symptoms. Duration of symptoms 1 day. Associated symptoms nasal congestion cough fatigue body aches. Does have transient chills. No known sick contacts. 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 Presents today for evaluation. Denies any current discomfort. Does have mild pain with coughing. States history of bronchitis this feels similar. Does have history of asthma with COPD. Denies any fever productive cough chest pain shortness of breath pleuritic pain hemoptysis nausea vomiting abdominal pain change in bowel or bladder habits. Past medical history prescription medication use and allergies reviewed. .Patient presents with: Cough: x1Days PAST MEDICAL HISTORY Diagnosis Date Asthma with COPD Atrial fibrillation (HCC) ablation 03/13/13 Cervical arthritis 04/17/2017 Cervical radiculopathy 04/17/2017 Cervicothoracic somatic dysfunction 07/31/2011 Depression Elevated prostate specific antigen (PSA) Esophageal reflux Fatty liver disease, nonalcoholic Gallbladder polyp 10/2017 2 mm Hyperlipidemia LDL goal < 100 01/01/2011 Hypertension Hypothyroidism Mild intermittent asthma without complication 08/27/2015 Osteoarthrosis, unspecified whether generalized or localized, other specified sites SERONEGATIVE Other and unspecified hyperlipidemia Peripheral vascular disease (HCC) Reactive depression 03/10/2016 Sarcoidosis Sleep apnea 01/01/2011 C-PAP Unspecified asthma(493.90) Unspecified hypothyroidism PAST SURGICAL HISTORY Procedure Laterality Date CATHETER ABLATION, INTRACARDIAC 03/13/13 atrial fibrillation COLONOSCOPY FLX DX W/COLLJ SPEC WHEN PFRMD 10/10/2018 Colonoscopy ESOPHAGOGASTRODUODENOSCOPY TRANSORAL DIAGNOSTIC 10/10/2018 EGD PAST SURGICAL HISTORY OF biopsy- sarcoidosis PAST SURGICAL HISTORY OF sinus polypectomy SEPTOPLASTY 2013 with polypectomy UMBILICAL HERNIA REPAIR 5 OR OLDER 2013 ALLERGIES Prozac [Fluoxetine Hcl] and Seasonal Allergies MEDICATIONS budesonide-formoterol (SYMBICORT) 160-4.5 mcg/actuation inhaler Inhale 2 Puffs as instructed two times a day. levothyroxine (SYNTHROID) 100 mcg tablet Take 1 tablet by mouth once daily. Take on empty stomach. For thyroid albuterol HFA (PROAIR HFA) 90 mcg/actuation inhaler Inhale 2 Puffs as instructed every 4 hours as needed. cetirizine (ZYRTEC) 10 mg tablet Take 1 tablet by mouth once daily. pravastatin (PRAVACHOL) 20 mg tablet TAKE 1 TABLET BY MOUTH EVERYDAY AT BEDTIME lisinopril (ZESTRIL, PRINIVIL) 5 mg tablet TAKE 1 TABLET BY MOUTH EVERY DAY albuterol (PROVENTIL) 2.5 mg /3 mL (0.083 %) nebulizer solution Use 3 mL via nebulizer every 4 hours as needed for Wheezing/Shortness of Breath. Use over 5-15minutes. Nebulizer NEBULIZER FOR HOME USE. DX:J40, R06.2 CPAP Settings 7 - 20 cm H2O, suitable mask per pt preference, chin strap, head gear, humidity, tubing, lifetime supplies. G47.33 FAIZAN FAMILY HISTORY Problem Relation Age of Onset Stroke Mother Diabetes Father Lipids Father Cancer Father stomach cancer Diabetes Maternal Grandfather Diabetes Maternal Uncle None Sister Social History Tobacco Use Smoking status: Former Packs/day: 0.20 Years: 20.00 Additional pack years: 0.00 Total pack years: 4.00 Types: Cigarettes Quit date: 12/08/2012 Years since quittin.6 Smokeless tobacco: Current Types: Chew Tobacco comments: occasionally will smoke Vaping Use Vaping Use: Never used Substance Use Topics Alcohol use: Not Currently Comment: Beer on weekends Drug use: No BP 120/80 Pulse 62 Temp 36.3 C (97.4 F) Resp 16 Wt 97 kg (213 lb 12.8 oz) SpO2 98% BMI 31.57 kg/m Review of Systems Constitutional: Positive for chills and malaise/fatigue. Negative for fever. HENT: Positive for congestion. Negative for ear discharge, ear pain, sinus pain and sore throat. Eyes: Negative for blurred vision, pain, discharge and redness. Respiratory: Positive for cough. Negative for hemoptysis, sputum production, shortness of breath, wheezing and stridor. Cardiovascular: Negative for chest pain. Gastrointestinal: Negative for abdominal pain, diarrhea, nausea and vomiting. Musculoskeletal: Positive for myalgias. Skin: Negative for itching and rash. Neurological: Negative for dizziness and headaches. Objective Physical Exam Constitutional: General: He is not in acute distress. Appearance: He is not diaphoretic. HENT: Head: Normocephalic. Jaw: No trismus, tenderness, swelling or pain on movement. Nose: Congestion present. Mouth/Throat: Mouth: Mucous membranes are moist. Pharynx: Oropharynx is clear. Uvula midline. No pharyngeal swelling, oropharyngeal exudate, posterior oropharyngeal erythema or uvula swelling. Eyes: Conjunctiva/sclera: Conjunctivae normal. Pupils: Pupils are equal, round, and reactive to light. Cardiovascular: Rate and Rhythm: Normal rate and regular rhythm. Heart sounds: Normal heart sounds. Pulmonary: Effort: Pulmonary effort is normal. No tachypnea, accessory muscle usage or respiratory distress. Breath sounds: No stridor. Wheezing present. No rhonchi or rales. Abdominal: General: There is no distension. Palpations: Abdomen is soft. Tenderness: There is no abdominal tenderness. There is no guarding or rebound. Musculoskeletal: Cervical back: Normal range of motion and neck supple. No edema, erythema, rigidity or tenderness. No pain with movement. Normal range of motion. Lymphadenopathy: Cervical: No cervical adenopathy. Skin: General: Skin is warm and dry. Neurological: Mental Status: He is alert and oriented to person, place, and time. ASSESSMENT/PLAN: 1. Viral URI with cough - ICD9: 465.9, ICD10: J06.9 Patient nontoxic-appearing. Hemodynamically stable. suspicious of viral etiology of symptoms. Treat as a viral bronchitis. Placed on prednisone and Mucinex. Patient was educated on supportive therapies. Patient will follow up with primary care provider as needed. Patient was instructed to immediately proceed to emergency room for any new, worsening, or symptoms lasting longer than anticipated. The patient's clinical presentation is otherwise unremarkable at this time. Based on exam and clinical finding, the patient is stable for discharge. Plan of care was discussed with patient. Patient verbalizes understanding and agrees to plan of care. This note was generated using [employer] software. It may contain errors in wording, punctuation, or spelling. Hayder Santacruz APRN.CALIN documented in this encounter [facility] 07-30-2023 Miscellaneous Notes Received [facility] paperwork, being held in darya desk documented in this encounter [facility] 07-09-2023 Miscellaneous Notes Patient phones requesting refills as follows: Last office visit 11/30/22 Requested Prescriptions Pending Prescriptions Disp Refills budesonide-formoterol (SYMBICORT) 160-4.5 mcg/actuation inhaler 30.6 Each 3 Please review and advise. Whitley Romero Ma documented in this encounter [facility] 06-15-2023 Miscellaneous Notes Patient notified of results and provider's instructions. Patient verbalizes understanding. Mireya Najera RN Phoned patient and VM left for him to return call to review results and recommendations with him. Please let the patient know that his TSH is continuing to be too suppressed but improved. Decrease dose to 100 mcg daily, repeat TSH in 2 months. The following approved medication requests have been transmitted electronically. Requested Prescriptions Signed Prescriptions Disp Refills levothyroxine (SYNTHROID) 100 mcg tablet 30 tablet 2 Sig: Take 1 tablet by mouth once daily. Take on empty stomach. For thyroid Authorizing Provider: DMITRY CORONADO APRN.CALIN documented in this encounter [facility] 06-08-2023 Note HNO ID: [id number] Author: Angy Alcantar APRN.CALIN Service: ? Author Type: Nurse Practitioner Type: Progress Notes Filed: 06/08/2023 3:51 PM Note Text: Subjective Came in with complaints of itching rash that he has been dealing with on and off for 4 years. Patient says it started on the left side in several different areas and now is on the right side. Patient says he scratches it so hard he draws blood. Patient says it wakes him up every few hours at night. Patient denies any numbness tingling or loss of feeling. Patient denies actually seeing any rash just feels like there is 1. The history is provided by the patient. No language instructor was used. Rash Review of Systems Constitutional: Negative. Skin: Positive for itching and rash. Objective Physical Exam Constitutional: Appearance: Normal appearance. Pulmonary: Effort: Pulmonary effort is normal. Musculoskeletal: Arms: Comments: Patient has what appears to be scratch agustin in the area marked above. No rash noted. Neurological: Mental Status: He is alert. PAST MEDICAL HISTORY Diagnosis Date Asthma with COPD (HCC) Atrial fibrillation (HCC) ablation 03/13/13 Cervical arthritis 04/17/2017 Cervical radiculopathy 04/17/2017 Cervicothoracic somatic dysfunction 07/31/2011 Depression Elevated prostate specific antigen (PSA) Esophageal reflux Fatty liver disease, nonalcoholic Gallbladder polyp 10/2017 2 mm Hyperlipidemia LDL goal < 100 01/01/2011 Hypertension Hypothyroidism Mild intermittent asthma without complication 08/27/2015 Osteoarthrosis, unspecified whether generalized or localized, other specified sites SERONEGATIVE Other and unspecified hyperlipidemia Peripheral vascular disease (HCC) Reactive depression 03/10/2016 Sarcoidosis Sleep apnea 01/01/2011 C-PAP Unspecified asthma(493.90) Unspecified hypothyroidism PAST SURGICAL HISTORY Procedure Laterality Date CATHETER ABLATION, INTRACARDIAC 03/13/13 atrial fibrillation COLONOSCOPY FLX DX W/COLLJ SPEC WHEN PFRMD 10/10/2018 Colonoscopy ESOPHAGOGASTRODUODENOSCOPY TRANSORAL DIAGNOSTIC 10/10/2018 EGD PAST SURGICAL HISTORY OF biopsy- sarcoidosis PAST SURGICAL HISTORY OF sinus polypectomy SEPTOPLASTY 2013 with polypectomy UMBILICAL HERNIA REPAIR 5 OR OLDER 2013 ALLERGIES Prozac [Fluoxetine Hcl] and Seasonal Allergies MEDICATIONS levothyroxine (SYNTHROID) 112 mcg tablet Take 1 tablet by mouth once daily. Take on empty stomach. For thyroid cetirizine (ZYRTEC) 10 mg tablet Take 1 tablet by mouth once daily. pravastatin (PRAVACHOL) 20 mg tablet TAKE 1 TABLET BY MOUTH EVERYDAY AT BEDTIME lisinopril (ZESTRIL, PRINIVIL) 5 mg tablet TAKE 1 TABLET BY MOUTH EVERY DAY SYMBICORT 160-4.5 mcg/actuation inhaler INHALE 1 PUFF BY MOUTH INSTRUCTED TWICE A DAY (Patient taking differently: Uses one puff inhalation once a week) albuterol HFA (PROAIR HFA) 90 mcg/actuation inhaler Inhale 2 Puffs as instructed every 4 hours as needed. albuterol (PROVENTIL) 2.5 mg /3 mL (0.083 %) nebulizer solution Use 3 mL via nebulizer every 4 hours as needed for Wheezing/Shortness of Breath. Use over 5-15minutes. Nebulizer NEBULIZER FOR HOME USE. DX:J40, R06.2 CPAP Settings 7 - 20 cm H2O, suitable mask per pt preference, chin strap, head gear, humidity, tubing, lifetime supplies. G47.33 FAIZAN predniSONE (DELTASONE) 10 mg tablet Take 4 tabs daily for 3 days, then 2 tabs daily for 3 days, then 1 tab daily for 3 days with food. FAMILY HISTORY Problem Relation Age of Onset Stroke Mother Diabetes Father Lipids Father Cancer Father stomach cancer Diabetes Maternal Grandfather Diabetes Maternal Uncle None Sister Social History Tobacco Use Smoking status: Former Packs/day: 0.20 Years: 20.00 Additional pack years: 0.00 Total pack years: 4.00 Types: Cigarettes Quit date: 12/08/2012 Years since quittin.5 Smokeless tobacco: Current Types: Chew Tobacco comments: occasionally will smoke Vaping Use Vaping Use: Never used Substance Use Topics Alcohol use: Not Currently Comment: Beer on weekends Drug use: No ASSESSMENT/PLAN: 1. Itching - ICD9: 698.9, ICD10: L29.9 - PREDNISONE 10 MG TABLET Was given prednisone to see if this would help alleviate the itch. Patient was also instructed to follow-up with dermatology. Patient will make an appointment and follow-up with dermatology. Patient was okay with this care plan. Angy Alcantar APRN.[facility] 06-08-2023 History of Presen t illness Narrative Images from the original note were not included. Subjective Came in with complaints of itching rash that he has been dealing with on and off for 4 years. Patient says it started on the left side in several different areas and now is on the right side. Patient says he scratches it so hard he draws blood. Patient says it wakes him up every few hours at night. Patient denies any numbness tingling or loss of feeling. Patient denies actually seeing any rash just feels like there is 1. The history is provided by the patient. No language instructor was used. Rash Review of Systems Constitutional: Negative. Skin: Positive for itching and rash. Objective Physical Exam Constitutional: Appearance: Normal appearance. Pulmonary: Effort: Pulmonary effort is normal. Musculoskeletal: Arms: Comments: Patient has what appears to be scratch agustin in the area marked above. No rash noted. Neurological: Mental Status: He is alert. PAST MEDICAL HISTORY Diagnosis Date Asthma with COPD (HCC) Atrial fibrillation (HCC) ablation 03/13/13 Cervical arthritis 04/17/2017 Cervical radiculopathy 04/17/2017 Cervicothoracic somatic dysfunction 07/31/2011 Depression Elevated prostate specific antigen (PSA) Esophageal reflux Fatty liver disease, nonalcoholic Gallbladder polyp 10/2017 2 mm Hyperlipidemia LDL goal < 100 01/01/2011 Hypertension Hypothyroidism Mild intermittent asthma without complication 08/27/2015 Osteoarthrosis, unspecified whether generalized or localized, other specified sites SERONEGATIVE Other and unspecified hyperlipidemia Peripheral vascular disease (HCC) Reactive depression 03/10/2016 Sarcoidosis Sleep apnea 01/01/2011 C-PAP Unspecified asthma(493.90) Unspecified hypothyroidism PAST SURGICAL HISTORY Procedure Laterality Date CATHETER ABLATION, INTRACARDIAC 03/13/13 atrial fibrillation COLONOSCOPY FLX DX W/COLLJ SPEC WHEN PFRMD 10/10/2018 Colonoscopy ESOPHAGOGASTRODUODENOSCOPY TRANSORAL DIAGNOSTIC 10/10/2018 EGD PAST SURGICAL HISTORY OF biopsy- sarcoidosis PAST SURGICAL HISTORY OF sinus polypectomy SEPTOPLASTY 2013 with polypectomy UMBILICAL HERNIA REPAIR 5 OR OLDER 2013 ALLERGIES Prozac [Fluoxetine Hcl] and Seasonal Allergies MEDICATIONS levothyroxine (SYNTHROID) 112 mcg tablet Take 1 tablet by mouth once daily. Take on empty stomach. For thyroid cetirizine (ZYRTEC) 10 mg tablet Take 1 tablet by mouth once daily. pravastatin (PRAVACHOL) 20 mg tablet TAKE 1 TABLET BY MOUTH EVERYDAY AT BEDTIME lisinopril (ZESTRIL, PRINIVIL) 5 mg tablet TAKE 1 TABLET BY MOUTH EVERY DAY SYMBICORT 160-4.5 mcg/actuation inhaler INHALE 1 PUFF BY MOUTH INSTRUCTED TWICE A DAY (Patient taking differently: Uses one puff inhalation once a week) albuterol HFA (PROAIR HFA) 90 mcg/actuation inhaler Inhale 2 Puffs as instructed every 4 hours as needed. albuterol (PROVENTIL) 2.5 mg /3 mL (0.083 %) nebulizer solution Use 3 mL via nebulizer every 4 hours as needed for Wheezing/Shortness of Breath. Use over 5-15minutes. Nebulizer NEBULIZER FOR HOME USE. DX:J40, R06.2 CPAP Settings 7 - 20 cm H2O, suitable mask per pt preference, chin strap, head gear, humidity, tubing, lifetime supplies. G47.33 FAIZAN predniSONE (DELTASONE) 10 mg tablet Take 4 tabs daily for 3 days, then 2 tabs daily for 3 days, then 1 tab daily for 3 days with food. FAMILY HISTORY Problem Relation Age of Onset Stroke Mother Diabetes Father Lipids Father Cancer Father stomach cancer Diabetes Maternal Grandfather Diabetes Maternal Uncle None Sister Social History Tobacco Use Smoking status: Former Packs/day: 0.20 Years: 20.00 Additional pack years: 0.00 Total pack years: 4.00 Types: Cigarettes Quit date: 12/08/2012 Years since quittin.5 Smokeless tobacco: Current Types: Chew Tobacco comments: occasionally will smoke Vaping Use Vaping Use: Never used Substance Use Topics Alcohol use: Not Currently Comment: Beer on weekends Drug use: No ASSESSMENT/PLAN: 1. Itching - ICD9: 698.9, ICD10: L29.9 - PREDNISONE 10 MG TABLET Was given prednisone to see if this would help alleviate the itch. Patient was also instructed to follow-up with dermatology. Patient will make an appointment and follow-up with dermatology. Patient was okay with this care plan. Angy Alcantar APRN.CALIN documented in this encounter [facility] 03-23-2023 Miscellaneous Notes Pt notified via [employer]. Advised he could call and schedule cardio appt. Christa Ivory Ma OK to refer to Cardiology Mary Martínez MD Ok to refer to Cardio? Christa Ivory Ma documented in this encounter [facility] 12-25-2022 History of Presen t illness Narrative Images from the original note were not included. [facility] NEW CONSULT PATIENT CLINIC NOTE SERVICE DATE: 12/25/2022 SERVICE TIME: 3:42 PM NAME: Keaton Aguila Consultation requested by Mary Martínez MD for an opinion regarding Elevated PSA My final recommendations communicated back to the requesting physician by way of our shared Medical record. CHIEF COMPLAINT: Elevated PSA HISTORY OF PRESENT ILLNESS: Keaton Aguila is a 57 year old male with PMH including HTN, HLD and A-Fib presenting for New Patient Consult for Elevated PSA The patient reports he denies any :LUTS and has had only 1 other PSA in 2021 the PSA is 2.82 And this is near normal level and in 1 yr and went from 2.77 to 2.82. No family history of CaP I recommend continuing to follow annual PSA and if gets closer to 4.0 can get an IsoPSA LUTS: None Other symptoms: LABS: Testosterone (ng/dL) Date Value 09/13/2019 275 01/02/2011 343 Testosterone Free Date Value 09/13/2019 6.33 ng/dL 01/02/2011 74.2 pg/mL PSA (ng/mL) Date Value 11/20/2022 2.82 10/29/2021 2.77 PSA Screening (ng/mL) Date Value 10/09/2021 3.19 Hematocrit (%) Date Value 10/09/2021 42.2 10/26/2017 45.2 03/10/2013 41.9 PSA (ng/mL) Date Value 11/20/2022 2.82 10/29/2021 2.77 PSA Screening (ng/mL) Date Value 10/09/2021 3.19 Creatinine Date Value Ref Range Status 11/20/2022 0.99 0.73 - 1.22 mg/dL Final 07/30/2022 0.93 0.73 - 1.22 mg/dL Final 10/09/2021 0.93 0.73 - 1.22 mg/dL Final 04/18/2020 0.95 0.73 - 1.22 mg/dL Final MEDICATIONS: levothyroxine (SYNTHROID) 112 mcg tablet Take 1 tablet by mouth once daily. Take on empty stomach. For thyroid cetirizine (ZYRTEC) 10 mg tablet Take 1 tablet by mouth once daily. pravastatin (PRAVACHOL) 20 mg tablet TAKE 1 TABLET BY MOUTH EVERYDAY AT BEDTIME lisinopril (ZESTRIL, PRINIVIL) 5 mg tablet TAKE 1 TABLET BY MOUTH EVERY DAY SYMBICORT 160-4.5 mcg/actuation inhaler INHALE 1 PUFF BY MOUTH INSTRUCTED TWICE A DAY (Patient taking differently: Uses one puff inhalation once a week) albuterol HFA (PROAIR HFA) 90 mcg/actuation inhaler Inhale 2 Puffs as instructed every 4 hours as needed. albuterol (PROVENTIL) 2.5 mg /3 mL (0.083 %) nebulizer solution Use 3 mL via nebulizer every 4 hours as needed for Wheezing/Shortness of Breath. Use over 5-15minutes. Nebulizer NEBULIZER FOR HOME USE. DX:J40, R06.2 CPAP Settings 7 - 20 cm H2O, suitable mask per pt preference, chin strap, head gear, humidity, tubing, lifetime supplies. G47.33 FAIZAN PAST MEDICAL HISTORY: PAST MEDICAL HISTORY Diagnosis Date Asthma with COPD (HCC) Atrial fibrillation (HCC) ablation 03/13/13 Cervical arthritis 04/17/2017 Cervical radiculopathy 04/17/2017 Cervicothoracic somatic dysfunction 07/31/2011 Depression Elevated prostate specific antigen (PSA) Esophageal reflux Fatty liver disease, nonalcoholic Gallbladder polyp 10/2017 2 mm Hyperlipidemia LDL goal < 100 01/01/2011 Hypertension Hypothyroidism Mild intermittent asthma without complication 08/27/2015 Osteoarthrosis, unspecified whether generalized or localized, other specified sites SERONEGATIVE Other and unspecified hyperlipidemia Peripheral vascular disease (HCC) Reactive depression 03/10/2016 Sarcoidosis Sleep apnea 01/01/2011 C-PAP Unspecified asthma(493.90) Unspecified hypothyroidism PAST SURGICAL HISTORY: PAST SURGICAL HISTORY Procedure Laterality Date CATHETER ABLATION, INTRACARDIAC 03/13/13 atrial fibrillation COLONOSCOPY FLX DX W/COLLJ SPEC WHEN PFRMD 10/10/2018 Colonoscopy ESOPHAGOGASTRODUODENOSCOPY TRANSORAL DIAGNOSTIC 10/10/2018 EGD PAST SURGICAL HISTORY OF biopsy- sarcoidosis PAST SURGICAL HISTORY OF sinus polypectomy SEPTOPLASTY 2013 with polypectomy UMBILICAL HERNIA REPAIR 5 OR OLDER 2013 FAMILY HISTORY: FAMILY HISTORY Problem Relation Age of Onset Stroke Mother Diabetes Father Lipids Father Cancer Father stomach cancer Diabetes Maternal Grandfather Diabetes Maternal Uncle None Sister SOCIAL HISTORY: Social Connections: Moderately Integrated Frequency of Communication with Friends and Family: Once a week Frequency of Social Gatherings with Friends and Family: Twice a week Attends Denominational Services: 1 to 4 times per year Active Member of Clubs or Organizations: No Attends Club or Organization Meetings: Never Marital Status: REVIEW OF SYSTEMS: GENERAL: No fever, chills, weight loss, or fatigue. ENMT: Negative CARDIOVASCULAR:NO CHEST PAIN, PALPITATIONS, ANKLE EDEMA RESPIRATORY: No chronic cough, wheezing, dyspnea, hemoptysis. GENITOURINARY: SEE HPI MUSCULOSKELETAL:NO CHRONIC BACK PAIN, ARTHRITIS, CHRONIC NECK PAIN SKIN: NO VARICOSE VEINS, RASH, ABNORMAL ITCHING HEME/LYMPH/IMMUNE:Negative for prolonged bleeding, bruising easily or swollen nodes NEUROLOGICAL: NO HEADACHES, NUMBNESS, SEIZURES, STROKE DIABETES: no All other systems reviewed and are negative PHYSICAL EXAMINATION: Blood pressure 150/86, pulse 88, temperature 37.1 C (98.8 F), temperature source Temporal, resp. rate 14, height 175.3 cm (5' 9 ), weight 97.5 kg (215 lb), SpO2 97 %. GENERAL: WNL nutrition, no deformities, healthy appearing NEURO: Awake, alert and oriented x 3 and Normal gait PSYCH: No signs of depression, anxiety, or agitation ENMT (Ear, Nose, Mouth, Throat): No masses, adenopathy, icterus. Thyroid nonpalpable RESP: NL effort, no retractions or purse-lip breathing. CV: No extremity swelling, varices, edema, pallor, erythema GASTROINTESTINAL: Soft, nontender, nondistended, no masses. HERNIAS: None SKIN: No rash, lesions No palpable lymphadenopathy MUSCULOSKELETAL: Extremities normal. No deformities, edema, clubbing or skin discoloration. GENITOURINARY: MALE EXAM: Rectal Exam: Prostate: size small benign PROBLEM LIST REVIEW: Yes LABS: Results for orders placed or performed in visit on 12/25/22 UA DIP, URINE (POC) Result Value Ref Range GLUCOSE UA (POCT) Negative Negative mg/dL BILIRUBIN UA (POCT) Negative Negative KETONE UA (POCT) Negative Negative mg/dL SPECIFIC GRAVITY UA (POCT) 1.020 1.005 - 1.030 HEMOGLOBIN/BLOOD UA (POCT) Trace-intact (A) Negative PH UA (POCT) 7.0 4.5 - 8.0 PROTEIN UA (POCT) Negative Negative mg/dL UROBILINOGEN UA (POCT) 0.2 Normal E.U./dL NITRITE UA (POCT) Negative Negative LEUKOCYTES UA (POCT) Negative Negative COLOR UA (POCT) Light yellow CLARITY UA (POCT) Clear PROCEDURES: PVR: 0 ml IMAGING: IMPRESSION/PLAN: 57 year old male with 1. Elevated PSA - ICD9: 790.93, ICD10: R97.20 > 1 year Appt w/ B. ANTHONY Lozano MT, PA-C with PSA prior I spent a total of 40 minutes on the date of the service which included preparing to see the patient, face to face patient care, completing clinical documentation, obtaining and/or reviewing separately obtained history, performing a medically appropriate examination, counseling and educating the patient/family/caregiver, ordering medications, tests, or procedures, and care coordination. ANTHONY Herrera MT, PA-C Verified name and date of . CC Post Void Residual HPI: Keaton Aguila is a 57 year old male. The patient is here now for an appointment with ANTHONY Herrera MT, PA-COV. Procedure: Explained procedure to patient and verbalizes understanding. Performed a PVR. Patient urinated and instructed to empty bladder as much as possible just prior to having PVR done using bladder ultrasound scanner. Results of scan: 0 mL The patient tolerated the procedure well. Plan: Appointment with Noel. documented in this encounter [facility] 11-30-2022 History of Presen t illness Narrative Chief Complaint Patient presents with: Yearly Exam HPI Keaton Aguila is a 57 year old male who presents here today for Chronic Medical Conditions. follow up for Hypothyroid, HTN, Lipid, Elevated PSA, Asthma with COPD. Reviewed labs with patient. TSH is suppressed at 0.040. PSA is elevated. Uncle 6 years ago from prostate cancer. COPD: Only uses Symbicort as needed, not daily. Occasional cough in the winter, no different than in the previous time. No shortness of breath. FAIZAN: Using CPAP nightly. Finds benefit. Patient is also discussing a long history of pruritus. States that this occurred many years ago [place] a former PCP after he had this pruritus and pain of the trapezius, shoulder area. Previous PCP thought it was resolving shingles. Patient denies any ongoing lesions, vesicles, rash. Has tried Benadryl in the past but did not tolerate. He has a history of seasonal allergies and previously received allergy injections twice weekly. No longer occurring. Patient states that the pruritus is usually on his left or right shoulder, without lesions, comes on suddenly. Described as intense. Lasting for hours. Wondering if there is anything we can do for him. Past medical history, appointments, medications, allergies reviewed. EXAM: BP 126/75 Pulse 80 Temp 37.1 C (98.7 F) (Left Tympanic) Resp 16 Ht 172.7 cm (5' 8 ) Wt 95.7 kg (211 lb) SpO2 97% BMI 32.08 kg/m General Appearance: Well appearing, alert, in no acute distress, well-hydrated, well nourished. and Obese. Skin: Skin color, texture, turgor normal, no suspicious rashes or lesions. Head: Normocephalic, no masses, lesions, tenderness or abnormalities. Eyes: Anicteric sclera. Pupils are equally round and reactive to light. Extraocular movements are intact. . Ears: External ears normal, canals clear. Nose/Sinuses: Nares normal, septum midline, mucosa normal, no drainage or sinus tenderness. Oropharynx: Lips, mucosa, and tongue normal, teeth and gums normal, oropharynx normal. Neck: Supple, no adenopathy; thyroid symmetric, normal size Lungs: Positive findings: wheezing, expiratory, slight in left lobes Heart: RRR without murmur, gallop, or rubs. No ectopy. Abdomen: Normal abdominal exam, Abdomen soft, non-tender. Bowel sounds normal. No masses, organomegaly. Extremities: No deformities, edema Component Latest Ref Rng & Units 11/20/2022 Protein, Total 6.3 - 8.0 g/dL 6.6 Albumin 3.9 - 4.9 g/dL 4.5 Calcium 8.5 - 10.2 mg/dL 9.3 Bilirubin, Total 0.2 - 1.3 mg/dL 0.3 Alkaline Phosphatase 38 - 113 U/L 50 AST 14 - 40 U/L 22 ALT 10 - 54 U/L 31 Glucose 74 - 99 mg/dL 93 BUN 9 - 24 mg/dL 14 Creatinine 0.73 - 1.22 mg/dL 0.99 Sodium 136 - 144 mmol/L 141 Potassium 3.7 - 5.1 mmol/L 4.4 Chloride 97 - 105 mmol/L 105 CO2 22 - 30 mmol/L 25 Anion Gap 9 - 18 mmol/L 11 eGFR >=60 mL/min/1.73m 89 Cholesterol, Total <200 mg/dL 151 Triglyceride <150 mg/dL 76 HDL Cholesterol >39 mg/dL 41 Non HDL Cholesterol <130 mg/dL 110 Fasting Time hrs 13 VLDL Cholesterol <30 mg/dL 15 TC:HDL Ratio <5.10 3.68 LDL Cholesterol <100 mg/dL 95 LDL:HDL Ratio <2.54 2.32 PSA <2.60 ng/mL 2.82 (H) PSA, Percent Free % 14 TSH 0.270 - 4.200 mIU/L 0.040 (L) ASSESSMENT/PLAN: 1. Acquired hypothyroidism - ICD9: 244.9, ICD10: E03.9 (primary diagnosis) - Instructed patient on importance of taking on an empty stomach either first thing in the morning or at bedtime. - check TSH in 2 months - Decrease Synthroid dose to 0.112 mg - TSH BLD - LEVOTHYROXINE 112 MCG TABLET 2. Hyperlipidemia with target LDL less than 100 - ICD9: 272.4, ICD10: E78.5 - good control - Continue current medication. - Encouraged following a low fat, low cholesterol diet. - Discussed the benefits of regular aerobic exercise and weight loss. 3. Elevated PSA - ICD9: 790.93, ICD10: R97.20 -Refer to urology with free PSA percent 14% and multiple family members with prostate cancer in the past. - CONSULT TO UROLOGY 4. Hypertension, essential - ICD9: 401.9, ICD10: I10 - good control - Continue current medication(s) - Recommended regular aerobic exercise. - Recommend home blood pressure monitoring, to bring results in on next visit - Goal of BP <130/80 5. Asthma with COPD with exacerbation (HCC) - ICD9: 493.22, ICD10: J44.1, J45.901 -Patient using Symbicort as needed as he cannot afford daily use. Continue with this administration 6. Sleep apnea, unspecified type - ICD9: 780.57, ICD10: G47.30 -Continue with CPAP nightly 7. Pruritus of skin - ICD9: 698.9, ICD10: L29.9 -Unclear etiology. Does not appear to be shingles-like as there is no vesicular rash. Appears more allergy related. Trial Zyrtec 10 mg once daily. Discussed that this will not cause grogginess, fatigue like Benadryl. If no improvement we can get allergy for further assessment. - CETIRIZINE 10 MG TABLET Dmitry Coronado APRN.CNP RTO yearly and as needed per patient preference with masking. I spent a total of 45 minutes on the date of the service which included preparing to see the patient, [id number] patient care, completing clinical documentation, obtaining and/or reviewing separately obtained history, performing a medically appropriate examination, counseling and educating the patient/family/caregiver, and ordering medications, tests, or procedures. This note was partly generated using [employer] voice recognition dictation and may contain some misspelled or inaccurate words missed on review. documented in this encounter [facility] 11-30-2022 Instructions Dmitry Coronado APRN.CNP - 11/30/2022 1:20 PM EST Start new dose of levothyroxine of 112 mcg once daily for all 7 days. Repeat TSH in 2 months. The order is in. Schedule appointment for urology. Start and trial Zyrtec 10 mg once daily. If not improved in 30 days, then call off and we can get you to an [employer]. Dmitry Coronado APRN.CNP documented in this encounter [facility] 11-26-2022 Miscellaneous Notes Pt confirmed appt. Ida Scales Ma Pt offered appt. This has been scheduled with CHE on 11/30, pt to confirm. Ida Scales Ma documented in this encounter [facility] 11-23-2022 Miscellaneous Notes [employer] message sent to pt asking him to contact office or respond via [employer] so we can assist him in scheduling overdue appt. Ida Scales Ma Patient had blood work completed. He was notified when he got the order for the blood work that he was overdue for a yearly visit. Can we assist with getting him in for a yearly? Dmitry Coronado APRN.CNP documented in this encounter [facility] 11-09-2022 Miscellaneous Notes Pt notified and voiced understanding. Advised to get blood work done fasting. Christa Ivory Ma Due for blood work and a yearly visit with us. The following approved medication requests have been transmitted electronically. Requested Prescriptions Signed Prescriptions Disp Refills levothyroxine (SYNTHROID) 137 mcg tablet 77 tablet 4 Sig: TAKE ONE TABLET BY MOUTH DAILY FOR 6 DAYS OF THE WEEK. Authorizing Provider: DMITRY CORONADO APRN.CNP Patient phones requesting refills as follows: Requested Prescriptions Pending Prescriptions Disp Refills levothyroxine (SYNTHROID) 137 mcg tablet [Pharmacy Med Name: LEVOTHYROXINE 137 MCG TABLET] 77 tablet 4 Sig: TAKE ONE TABLET BY MOUTH DAILY FOR 6 DAYS OF THE WEEK. FRANSISCA-07/31/22 Labs-07/30/22 NOV-none med filled 08/13/21 Please review and advise. Maribeth Morton LPN documented in this encounter [facility] 10-06-2022 Miscellaneous Notes OK to refill as ordered Mary Martínez MD Patient phones requesting refills as follows: Requested Prescriptions Pending Prescriptions Disp Refills pravastatin (PRAVACHOL) 20 mg tablet [Pharmacy Med Name: PRAVASTATIN SODIUM 20 MG TAB] 90 tablet 3 Sig: TAKE 1 TABLET BY MOUTH EVERYDAY AT BEDTIME FRANSISCA-07/31/22 Labs-07/30/22 NOV-none med filled 10/08/21 Please review and advise. Maribeth Morton LPN documented in this encounter [facility] 09-21-2022 Miscellaneous Notes The following approved medication requests have been transmitted electronically. Requested Prescriptions Pending Prescriptions Disp Refills lisinopril (ZESTRIL, PRINIVIL) 5 mg tablet [Pharmacy Med Name: LISINOPRIL 5 MG TABLET] 90 tablet 3 Sig: TAKE 1 TABLET BY MOUTH EVERY DAY Dmitry Coronado APRN.MUCK FARMER Patient phones requesting refills as follows: Requested Prescriptions Pending Prescriptions Disp Refills lisinopril (ZESTRIL, PRINIVIL) 5 mg tablet [Pharmacy Med Name: LISINOPRIL 5 MG TABLET] 90 tablet 1 Sig: TAKE 1 TABLET BY MOUTH EVERY DAY FRANSISCA-07/31/22 Labs-07/30/22 NOV-none med filled 04/07/22 Please review and advise. Maribeth Morton LPN documented in this encounter [facility] 08-01-2022 Miscellaneous Notes Patient given results and verbalized understanding of instructions given. Meagan Gresham ----- Message from Yun Muro APRN.[employer]UCK FARMER sent at 08/01/2022 8:09 AM EDT ----- Urine culture did not show any evidence of infection. If not improving, recommend follow up with PCP. Yun Muro CNP documented in this encounter [facility] 07-31-2022 Miscellaneous Notes Left message for patient with results and recommendations.Meera Villanueva LPN ----- Message from Yun Muro APRN.[employer]ER sent at 07/31/2022 10:24 AM EDT ----- Please advise patient the blood work was all within normal ranges. He should keep his appointment today with Dr. Martínez for recheck. Yun Muro APRN.CALIN documented in this encounter [facility] 07-30-2022 Instructions Kandy Silva APRN.CALIN - 07/30/2022 12:39 PM EDT Will send urine culture Concerned possible stone and unable to do imaging today Will set up follow up tomorrow with Dr. Martínez Cmp ordered today documented in this encounter [facility] 07-30-2022 History of Presen t illness Narrative Subjective The history is provided by the patient. No language instructor was used. ROSEY Aguila is a 57 year old male who presents today for CC of left sided groin pain, as well as only able to void a small amount. He denies any back pain, fever, chills, body aches. H/o stones in past. BP 154/86 Pulse 76 Temp 36.9 C (98.5 F) (Tympanic) Resp 16 Wt 98.5 kg (217 lb 3.2 oz) SpO2 97% BMI 31.16 kg/m Social History Tobacco Use Smoking status: Former Packs/day: 0.20 Years: 20.00 Pack years: 4.00 Types: Cigarettes Quit date: 12/08/2012 Years since quittin.6 Smokeless tobacco: Current Types: Chew Tobacco comments: occasionally will smoke Vaping Use Vaping Use: Never used Substance Use Topics Alcohol use: Yes Alcohol/week: 15.0 standard drinks Types: 6 Cans of Beer (12oz) per week Comment: Beer on weekends Drug use: No PAST MEDICAL HISTORY Diagnosis Date Atrial fibrillation (HCC) ablation 03/13/13 Cervical arthritis 04/17/2017 Cervical radiculopathy 04/17/2017 Cervicothoracic somatic dysfunction 07/31/2011 Depression Esophageal reflux Fatty liver disease, nonalcoholic Gallbladder polyp 10/2017 2 mm Hyperlipidemia LDL goal < 100 01/01/2011 Hypertension Mild intermittent asthma without complication 08/27/2015 Osteoarthrosis, unspecified whether generalized or localized, other specified sites SERONEGATIVE Other and unspecified hyperlipidemia Peripheral vascular disease (HCC) Reactive depression 03/10/2016 Sarcoidosis Sleep apnea 01/01/2011 C-PAP Unspecified asthma(493.90) Unspecified hypothyroidism I have confirmed and edited as necessary, the [facility] Review of Systems Constitutional: Negative for chills and fever. Gastrointestinal: Negative for abdominal pain. Genitourinary: Positive for dysuria. Negative for flank pain, frequency, hematuria and urgency. Decreased urine output Objective Physical Exam Vitals and nursing note reviewed. Cardiovascular: Rate and Rhythm: Normal rate and regular rhythm. Heart sounds: Normal heart sounds. Pulmonary: Effort: Pulmonary effort is normal. Breath sounds: Normal breath sounds. Abdominal: General: Abdomen is protuberant. Skin: General: Skin is warm and dry. Neurological: Mental Status: He is alert and oriented to person, place, and time. Psychiatric: Mood and Affect: Affect normal. ASSESSMENT/PLAN: 1. Urinary frequency - ICD9: 788.41, ICD10: R35.0 Acute - suspect stone - UA positive for hematuria - Send urine for culture - Advise to go to ED for imaging, unable to get us today, patient declines - Will check CMP and set up follow up tomorrow with Dr. Martínez for recheck - Advise if abnormal blood work will need to go to ED, or if pain increases. Patient in agreement with plan. - UA DIP, URINE (POC) - URINE CULTURE - COMP METABOLIC PANEL Diagnosis and treatment plan were discussed and questions were answered to the patient's satisfaction. Pt acknowledged understanding of concepts and follow up plan. Specific signs and symptoms that would indicate the need for higher level of care were discussed in detail warranting prompt ER evaluation. Kandy Silva APRN.CALIN documented in this encounter [facility] 07-30-2022 History of Presen t illness Narrative Pt. Thinks he may had a kidney stone. Has left groin pain. Has a history of them in the past but believes this may be different. Advised patient to contact PCP for possible appointment today. Advised patient to seek in person care due to limitations of virtual platform. Fee waived. documented in this encounter [facility] 04-07-2022 Miscellaneous Notes The following approved medication requests have been transmitted electronically. Pending Prescriptions Disp Refills LISINOPRIL 5 MG TABLET 30 tablet 5 Sig: Take 1 tablet by mouth once daily. MILTON: No Dmitry Coronado APRN.CNP Last office visit: 12/02/21 F/u scheduled: none Christa Ivory Ma documented in this encounter [facility] 03-05-2022 History of Presen t illness Narrative Subjective HPI HPI Keaton Aguila is a 56 year old male who presents today for CC of right elbow pain after slight bump few days ago. Has tried otc medication and ice for relief. Symptoms are worsened by touching the area. Risk factors none. Denies numbness/tingling of right arm, denies fever. .Patient presents with: Pain (Elbow Pain): Pt reported elbow pain rated 10 w/ mvmt, warmth, swelling onset x6 days PAST MEDICAL HISTORY Diagnosis Date Atrial fibrillation (HCC) ablation 6/10/13 Cervical arthritis 04/17/2017 Cervical radiculopathy 04/17/2017 Cervicothoracic somatic dysfunction 07/31/2011 Depression Esophageal reflux Fatty liver disease, nonalcoholic Gallbladder polyp 10/2017 2 mm Hyperlipidemia LDL goal < 100 01/01/2011 Hypertension Mild intermittent asthma without complication 08/27/2015 Osteoarthrosis, unspecified whether generalized or localized, other specified sites SERONEGATIVE Other and unspecified hyperlipidemia Peripheral vascular disease (HCC) Reactive depression 03/10/2016 Sarcoidosis Sleep apnea 01/01/2011 C-PAP Unspecified asthma(493.90) Unspecified hypothyroidism PAST SURGICAL HISTORY Procedure Laterality Date CATHETER ABLATION, INTRACARDIAC 03/13/13 atrial fibrillation COLONOSCOPY FLX DX W/COLLJ SPEC WHEN PFRMD 10/10/2018 Colonoscopy ESOPHAGOGASTRODUODENOSCOPY TRANSORAL DIAGNOSTIC 10/10/2018 EGD PAST SURGICAL HISTORY OF biopsy- sarcoidosis PAST SURGICAL HISTORY OF sinus polypectomy SEPTOPLASTY 2013 with polypectomy UMBILICAL HERNIA REPAIR 5 OR OLDER 2013 ALLERGIES Prozac [Fluoxetine Hcl] and Seasonal Allergies MEDICATIONS pravastatin (PRAVACHOL) 20 mg tablet Take 1 tablet by mouth daily at bedtime. lisinopril (ZESTRIL, PRINIVIL) 5 mg tablet Take 1 tablet by mouth once daily. levothyroxine (SYNTHROID) 137 mcg tablet One tablet daily for 6 days of the week. albuterol HFA (PROAIR HFA) 90 mcg/actuation inhaler Inhale 2 Puffs as instructed every 4 hours as needed. SYMBICORT 160-4.5 mcg/actuation inhaler INHALE 1 PUFF BY MOUTH INSTRUCTED TWICE A DAY albuterol (PROVENTIL) 2.5 mg /3 mL (0.083 %) nebulizer solution Use 3 mL via nebulizer every 4 hours as needed for Wheezing/Shortness of Breath. Use over 5-15minutes. Nebulizer NEBULIZER FOR HOME USE. [id number]:J40, R06.2 CPAP Settings 7 - 20 cm H2O, suitable mask per pt preference, chin strap, head gear, humidity, tubing, lifetime supplies. G47.33 FAIZAN predniSONE (DELTASONE) 10 mg tablet Take 4 tabs daily for 3 days, then 2 tabs daily for 3 days, then 1 tab daily for 3 days with food. FAMILY HISTORY Problem Relation Age of Onset Stroke Mother Diabetes Father Lipids Father Cancer Father stomach cancer Diabetes Maternal Grandfather Diabetes Maternal Uncle None Sister Social History Tobacco Use Smoking status: Former Smoker Packs/day: 0.20 Years: 20.00 Pack years: 4.00 Types: Cigarettes Quit date: 12/08/2012 Years since quittin.2 Smokeless tobacco: Current User Types: Chew Tobacco comment: occasionally will smoke Vaping Use Vaping Use: Never used Substance Use Topics Alcohol use: Yes Alcohol/week: 15.0 standard drinks Types: 6 Cans of Beer (12oz) per week Comment: Beer on weekends Drug use: No ROS Objective Blood pressure 130/76, pulse 70, temperature 36.8 C (98.2 F), resp. rate 18, weight 98.2 kg (216 lb 9.6 oz), SpO2 97 %. Physical Exam Constitutional: General: He is not in acute distress. Appearance: He is not toxic-appearing or diaphoretic. HENT: Head: Normocephalic and atraumatic. Cardiovascular: Pulses: Radial pulses are 2+ on the right side. Pulmonary: Effort: Pulmonary effort is normal. No accessory muscle usage or respiratory distress. Musculoskeletal: Right elbow: Swelling present. No deformity, effusion or lacerations. Normal range of motion. Tenderness present in olecranon process (swelling, slight warmth, slight erythema. no streaking). Neurological: Mental Status: He is alert and oriented to person, place, and time. ASSESSMENT/PLAN: 1. Olecranon bursitis of right elbow - ICD9: 726.33, ICD10: M70.21 Ice, compression discussed. F/u for continued/worsening s/s. - PREDNISONE 10 MG TABLET Agrees to plan Km Schwartz APRN.CNP documented in this encounter [facility] 05-16-2021 History of Presen t illness Narrative Radiology Service Progress Note PATIENT NAME: Keaton Aguila DATE OF SERVICE: May 16, 2021 TIME: 5:03 PM PATIENT IDENTITY VERIFICATION COMPLETED USING TWO (2) IDENTIFIERS: Name and Date of confirmed by patient verbally. FALL SCREENING: Has the patient had 2 falls in the last year or 1 fall with injury or currently using an Ambulatory Assistive Device (Walker, Cane, Wheelchair, Crutches, etc.)? No PATIENT GENDER DATA: Male PATIENT RELEVANT IMPLANT DATA REVIEWED: Not Applicable RADIOLOGY DEPARTMENT: General X-ray: Exam(s) Completed: Lower Extremity X-Ray(s): Knee, AP / Lat / Tunne / Merchant Left and Wt. Bearing Upper Extremity X-Ray(s): Elbow, left PERIPHERAL IV DATA: Not applicable SIGNED BY: RT Katelyn(R) May 16, 2021 5:03 PM documented in this encounter [facility] 11-28-2012 History of Past i llness Narrative Problem Noted Date Resolved Date Thoracic back pain 11/28/2012 08/14/2016 Atrial fibrillation 08/15/2010 01/27/2014 Essential Hypertension, Benign 03/19/2010 1 10/27/2014 Depression 05/29/2009 08/27/2015 Esophageal reflux 01/06/2008 08/27/2015 documented as of this encounter (statuses as of 03/05/2022) [facility] History of Past illness Narrative* Problem Noted Date Resolved Date Thoracic back pain 11/28/2012 08/14/2016 Atrial fibrillation 08/15/2010 01/27/2014 Essential Hypertension, Benign 03/19/201010/27/2014 Depression 05/29/2009 08/27/2015 Esophageal reflux 01/06/2008 08/27/2015 documented as of this encounter (statuses as of 04/07/2022) [facility] History of Past illness Narrative* Problem Noted Date Resolved Date Thoracic back pain 11/28/2012 08/14/2016 Atrial fibrillation 08/15/2010 01/27/2014 Essential Hypertension, Benign 03/19/2010 1 10/27/2014 Depression 05/29/2009 08/27/2015 Esophageal reflux 01/06/2008 08/27/2015 documented as of this encounter (statuses as of 07/30/2022) [facility] History of Past illness Narrative* Problem Noted Date Resolved Date Thoracic back pain 11/28/2012 08/14/2016 Atrial fibrillation 08/15/2010 01/27/2014 Essential Hypertension, Benign 03/19/2010 1 10/27/2014 Depression 05/29/2009 08/27/2015 Esophageal reflux 01/06/2008 08/27/2015 documented as of this encounter (statuses as of 07/31/2022) [address]25-2013 History of Past illness Narrative* Problem Noted Date Resolved Date Thoracic back pain 11/28/2012 08/14/2016 Atrial fibrillation 08/15/2010 01/27/2014 Essential Hypertension, Benign 03/19/2010 1 10/27/2014 Depression 05/29/2009 08/27/2015 Esophageal reflux 01/06/2008 08/27/2015 documented as of this encounter (statuses as of 08/01/2022) [address]25-2013 History of Past illness Narrative* Problem Noted Date Resolved Date Thoracic back pain 11/28/2012 08/14/2016 Atrial fibrillation 08/15/2010 01/27/2014 Essential Hypertension, Benign 03/19/2010 1 10/27/2014 Depression 05/29/2009 08/27/2015 Esophageal reflux 01/06/2008 08/27/2015 documented as of this encounter (statuses as of 09/21/2022) [facility] History of Past illness Narrative* Problem Noted Date Resolved Date Thoracic back pain 11/28/2012 08/14/2016 Atrial fibrillation 08/15/2010 01/27/2014 Essential Hypertension, Benign 03/19/2010 1 10/27/2014 Depression 05/29/2009 08/27/2015 Esophageal reflux 01/06/2008 08/27/2015 documented as of this encounter (statuses as of 10/08/2022) [address]25-2013 History of Past illness Narrative* Problem Noted Date Resolved Date Thoracic back pain 11/28/2012 08/14/2016 Atrial fibrillation 08/15/2010 01/27/2014 Essential Hypertension, Benign 03/19/2010 1 10/27/2014 Depression 05/29/2009 08/27/2015 Esophageal reflux 01/06/2008 08/27/2015 documented as of this encounter (statuses as of 11/09/2022) [address]25-2013 History of Past illness Narrative* Problem Noted Date Resolved Date Thoracic back pain 11/28/2012 08/14/2016 Atrial fibrillation 08/15/2010 01/27/2014 Essential Hypertension, Benign 03/19/2010 1 10/27/2014 Depression 05/29/2009 08/27/2015 Esophageal reflux 01/06/2008 08/27/2015 documented as of this encounter (statuses as of 11/24/2022) [facility] History of Past illness Narrative* Problem Noted Date Resolved Date Thoracic back pain 11/28/2012 08/14/2016 Atrial fibrillation 08/15/2010 01/27/2014 Essential Hypertension, Benign 03/19/2010 1 10/27/2014 Depression 05/29/2009 08/27/2015 Esophageal reflux 01/06/2008 08/27/2015 documented as of this encounter (statuses as of 11/26/2022) [facility] History of Past illness Narrative* Problem Noted Date Resolved Date Thoracic back pain 11/28/2012 08/14/2016 Atrial fibrillation 08/15/2010 01/27/2014 Essential Hypertension, Benign 03/19/2010 1 10/27/2014 Depression 05/29/2009 08/27/2015 Esophageal reflux 01/06/2008 08/27/2015 documented as of this encounter (statuses as of 11/30/2022) [facility] History of Past illness Narrative* Problem Noted Date Resolved Date Thoracic back pain 11/28/2012 08/14/2016 Atrial fibrillation 08/15/2010 01/27/2014 Essential Hypertension, Benign 03/19/2010 1 10/27/2014 Depression 05/29/2009 08/27/2015 Esophageal reflux 01/06/2008 08/27/2015 documented as of this encounter (statuses as of 12/25/2022) [facility] History of Past illness Narrative* Problem Noted Date Resolved Date Thoracic back pain 11/28/2012 08/14/2016 Atrial fibrillation 08/15/2010 01/27/2014 Essential Hypertension, Benign 03/19/2010 1 10/27/2014 Depression 05/29/2009 08/27/2015 Esophageal reflux 01/06/2008 08/27/2015 documented as of this encounter (statuses as of 03/24/2023) [address]25-2013 History of Past illness Narrative* Problem Noted Date Diagnosed Date Resolved Date Thoracic back pain 11/28/2012 6 Atrial fibrillation 08/15/2010 01/28/20 14 Essential Hypertension, Benign 03/19/2010 08/27/2015 Depression 05/29/2009 08/27/2015 Esophageal reflux 01/06/2008 08/27/2015 documented as of this encounter (statuses as of 05/26/2023) [facility] History of Past illness Narrative* Problem Noted Date Diagnosed Date Resolved Date Thoracic back pain 11/28/2012 6 Atrial fibrillation 08/15/2010 01/28/20 14 Essential Hypertension, Benign 03/19/2010 08/27/2015 Depression 05/29/2009 08/27/2015 Esophageal reflux 01/06/2008 08/27/2015 documented as of this encounter (statuses as of 06/09/2023) [facility] History of Past illness Narrative* Problem Noted Date Diagnosed Date Resolved Date Thoracic back pain 11/28/2012 6 Atrial fibrillation 08/15/2010 01/28/20 14 Essential Hypertension, Benign 03/19/2010 08/27/2015 Depression 05/29/2009 08/27/2015 Esophageal reflux 01/06/2008 08/27/2015 documented as of this encounter (statuses as of 06/15/2023) [facility] History of Past illness Narrative* Problem Noted Date Diagnosed Date Resolved Date Thoracic back pain 11/28/2012 6 Atrial fibrillation 08/15/2010 01/28/20 14 Essential Hypertension, Benign 03/19/2010 08/27/2015 Depression 05/29/2009 08/27/2015 Esophageal reflux 01/06/2008 08/27/2015 documented as of this encounter (statuses as of 07/10/2023) [facility] History of Past illness Narrative* Problem Noted Date Diagnosed Date Resolved Date Thoracic back pain 11/28/2012 6 Atrial fibrillation 08/15/2010 01/28/20 14 Essential Hypertension, Benign 03/19/2010 08/27/2015 Depression 05/29/2009 08/27/2015 Esophageal reflux 01/06/2008 08/27/2015 documented as of this encounter (statuses as of 08/02/2023) [facility] History of Past illness Narrative* Problem Noted Date Diagnosed Date Resolved Date Thoracic back pain 11/28/2012 6 Atrial fibrillation 08/15/2010 01/28/20 14 Essential Hypertension, Benign 03/19/2010 08/27/2015 Depression 05/29/2009 08/27/2015 Esophageal reflux 01/06/2008 08/27/2015 documented as of this encounter (statuses as of 08/17/2023) [facility] History of Past illness Narrative* Problem Noted Date Diagnosed Date Resolved Date Thoracic back pain 11/28/2012 6 Atrial fibrillation 08/15/2010 01/28/20 14 Essential Hypertension, Benign 03/19/2010 08/27/2015 Depression 05/29/2009 08/27/2015 Esophageal reflux 01/06/2008 08/27/2015 documented as of this encounter (statuses as of 11/13/2023) [facility] History of Past illness Narrative* Problem Noted Date Diagnosed Date Resolved Date Thoracic back pain 11/28/2012 6 Atrial fibrillation 08/15/2010 01/28/20 14 Essential Hypertension, Benign 03/19/2010 08/27/2015 Depression 05/29/2009 08/27/2015 Esophageal reflux 01/06/2008 08/27/2015 documented as of this encounter (statuses as of 12/03/2023) [facility] History of Past illness Narrative* Problem Noted Date Diagnosed Date Resolved Date Thoracic back pain 11/28/2012 6 Atrial fibrillation 08/15/2010 01/28/20 14 Essential Hypertension, Benign 03/19/2010 08/27/2015 Depression 05/29/2009 08/27/2015 Esophageal reflux 01/06/2008 08/27/2015 documented as of this encounter (statuses as of 12/07/2023) [facility] History of Past illness Narrative* Problem Noted Date Diagnosed Date Resolved Date Thoracic back pain 11/28/2012 6 Atrial fibrillation 08/15/2010 01/28/20 14 Essential Hypertension, Benign 03/19/2010 08/27/2015 Depression 05/29/2009 08/27/2015 Esophageal reflux 01/06/2008 08/27/2015 documented as of this encounter (statuses as of 12/20/2023) [facility] History of Past illness Narrative* Problem Noted Date Diagnosed Date Resolved Date Thoracic back pain 11/28/2012 6 Atrial fibrillation 08/15/2010 01/28/20 14 Essential Hypertension, Benign 03/19/2010 08/27/2015 Depression 05/29/2009 08/27/2015 Esophageal reflux 01/06/2008 08/27/2015 documented as of this encounter (statuses as of 01/04/2024) [facility] note* Diagnosis Olecranon bursitis of right elbow- Primary Olecranon bursitis [facility] [place] [facility] Diagnosis Treatment not available- Primary Procedure not carried out for other reasons documented [facility] [place] [facility] Diagnosis Urinary frequency- Primary [facility] [place] [facility] Diagnosis Hyperlipidemia with target LDL less than 100 Other and unspecified hyperlipidemia [facility] [place] [facility] Diagnosis Hyperlipidemia with target LDL less than 100- Primary Other and unspecified hyperlipidemia Acquired hypothyroidism Unspecified hypothyroidism Elevated PSA Elevated prostate specific antigen (PSA) documented [facility] this [facility] [place] [facility] Diagnosis Acquired hypothyroidism- Primary Unspecified hypothyroidism Hyperlipidemia with target LDL less than 100 Other and unspecified hyperlipidemia Elevated PSA Elevated prostate specific antigen (PSA) Hypertension, essential Unspecified essential hypertension Asthma with COPD with exacerbation (HCC) Chronic obstructive asthma with exacerbation Sleep apnea, unspecified type Pruritus of skin Unspecified pruritic disorder [facility] [place] [facility] Diagnosis Elevated PSA Elevated prostate specific antigen (PSA) [facility] Diagnosis Hypertension, essential- Primary Unspecified essential hypertension Hyperlipidemia with target LDL less than 100 Other and unspecified hyperlipidemia [facility] [place] [facility] Diagnosis Acquired hypothyroidism- Primary Unspecified hypothyroidism documented [facility] this [facility] [place] [facility] Diagnosis Itching- Primary Unspecified pruritic disorder [facility] Diagnosis Acquired hypothyroidism Unspecified hypothyroidism documented [facility] [place] [facility] Diagnosis Asthma with COPD with exacerbation (HCC) Chronic obstructive asthma with exacerbation [facility] [place] [facility] Diagnosis Viral URI with cough- Primary Acute upper respiratory infections of unspecified site [facility] [place] [facility] Diagnosis Multiple sclerosis (HCC) Multiple sclerosis [facility] [place] [facility] Diagnosis Cervical radiculopathy- Primary Brachial neuritis or radiculitis nos Disturbance of skin sensation Generalized hyperreflexia Abnormal reflex Sarcoidosis documented in this encounter [facility] note* Diagnosis Hyperlipidemia with target LDL less than 100 Other and unspecified hyperlipidemia documented in this encounter [facility] note* Diagnosis Hypertension, essential- Primary Unspecified essential hypertension Acquired hypothyroidism Unspecified hypothyroidism Hyperlipidemia with target LDL less than 100 Other and unspecified hyperlipidemia Tobacco abuse Tobacco use disorder Reactive depression Dysthymic disorder Sleep apnea, unspecified type documented in this encounter [facility] note* Diagnosis Reactive depression- Primary Dysthymic disorder Tobacco abuse Tobacco use disorder documented in this encounter [facility] note* Diagnosis Current mild episode of major depressive disorder, unspecified whether recurrent (HCC)- Primary documented in this encounter [facility] note* Diagnosis Left knee pain, unspecified chronicity- Primary Right hip pain Pain in joint, pelvic region and thigh Hip tendonitis, right documented in this encounter [facility] note* Diagnosis Left knee pain, unspecified chronicity Right hip pain Pain in joint, pelvic region and thigh Hip tendonitis, right documented in this encounter [facility] note* Diagnosis Medial epicondylitis of left elbow Medial epicondylitis of elbow Chronic pain of left knee Pain in joint, lower leg Instability of left knee joint documented in this encounter [facility] for referral (narrative)* Outpatient Procedure (Routine) - Pending Review Specialty Diagnoses / Procedures Referred By Armen lazar Referred To Contact [facility] Diagnoses Cervical radiculopathy Disturbance of skin sensation Generalized hyperreflexia Sarcoidosis Procedures EMG(NEURO/NI) NERVE CONDUCTION STUDIES 9-10 STUDIES Yelena Brown DO [address] [place] [address] [facility] [place] [address] [place] [id number] Referral ID Status Reason Start Date Expiration Date Visits Requested Visits Authorized [id number] Pending Review Auto-Generat ed Referral 11/29/2023 11/29/2024 1 1 [facility] for referral (narrative)* Diagnostic Procedure Only (Routine) - Closed Specialty Diagnoses / Procedures Referred By Armen lazar Referred To Contact XR IMAGING Diagnoses Chronic pain of left knee Instability of left knee joint Procedures XR ELBOW GENERAL 2V AP/LAT LT X-RAY ELBOW AP/LATERAL Roderick Conroy MD [address] [place] [address] [place] [address] Referral ID Status Reason Start Date Expiration Date V isits Requested Visits Authorized Closed Auto-Generate d Referral 05/16/2021 06/15/2022 1 1 * Diagnostic Procedure Only (Routine) - Closed Specialty Diagnoses / Procedures Referred By Contac t Referred To Contact XR IMAGING Diagnoses Medial epicondylitis of left elbow Procedures XR KNEE GENERAL 4V AP BOTH/PA BOTH/LAT/MERC LT KNEE AP-WGT/LAT/MERCHANT Roderick Conroy MD [address] [place] [address] [place] [address] Referral ID Status Reason Start Date Expiration Date V isits Requested Visits Authorized Closed Auto-Generate d Referral 05/16/2021 06/15/2022 1 1 [facility] for visit Narrative* Diagnostic Procedure Only (Routine) - Closed Specialty Diagnoses / Procedures Referred By Contac t Referred To Contact XR IMAGING Diagnoses Chronic pain of left knee Instability of left knee joint Procedures XR ELBOW GENERAL 2V AP/LAT LT X-RAY ELBOW AP/LATERAL Roderick Conroy MD [address] [place] [address] [place] [address] Referral ID Status Reason Start Date Expiration Date V isits Requested Visits Authorized [id number] Closed Auto-Generate d Referral 05/16/2021 06/15/2022 1 1 [facility] Summary Purpose Family History No Family History Records FoundNo Family History Records Found Advance Directives Documents on File Type Date Recorded Patient Child Therapist Expl anation Advance Directive(s) 10/10/2018 9:53 AM Advance Directive(s) 09/19/2018 5:23 PM Advance Directive(s) 09/19/2018 5:38 PM Advance Directive(s) 09/16/2018 4:17 PM Reason for Referral Specialty Diagnoses / Procedures Referred By Contac t Referred To Contact Urology Diagnoses Elevated PSA Procedures CONSULT TO UROLOGY OFFICE/OUTPATIENT NEW HIGH MDM 60-74 MINUTES Dmitry Coronado APRN.CNP [address] [place] [address] Referral ID Status Reason Start Date Expiration Date Visits Requested Visits Authorized [id number] Authorized PCP Requested Referral 11/30/2022 11/30/2023 1 1 Specialty Diagnoses / Procedures Referred By Contac t Referred To Contact Cardiology Diagnoses Hypertension, essential Hyperlipidemia with target LDL less than 100 Procedures CONSULT TO CARDIOLOGY OFFICE/OUTPATIENT NEW HIGH MDM 60-74 MINUTES Mary Martínez MD [address] [place] [address] Referral ID Status Reason Start Date Expiration Date Visits Requested Visits Authorized [id number] Authorized PCP Requested Referral 03/23/2023 03/22/2024 1 1 Specialty Diagnoses / Procedures Referred By Contac t Referred To Contact MR IMAGING Diagnoses Multiple sclerosis (HCC) Procedures MRI BRAIN WO IVCON MRI BRAIN BRAIN STEM W/O CONTRAST MATERIAL Yelena Brown DO [address] [place] [address] [facility] [place] [address] Referral ID Status Reason Start Date Expiration Date V isits Requested Visits Authorized [id number] Closed Auto-Generate d Referral 10/27/2023 10/03/2024 1 1 Additional Source Comments (unrecognized sect ion and content) No Status Records FoundNo Status Records Found INFORMATION SOURCE (unrecogn ized section and content) DATE CREATED AUTHOR 12/16/2018 [facility] DATE CREATED AUTHOR AUTHOR'S ORGANIZ ATION 03/14/2024 [facility] Source Comments (unrecognize d section and content) In the event this informatio n is protected by the Federal Confidentiality of Alcohol and Drug Abuse Patient Records regulations: The Federal rules restrict any use of the information to criminally investigate or prosecute any alcohol or drug abuse patient.[facility] the event this information is protected by the Federal Confidentiality of Alcohol and Drug Abuse Patient Records regulations: The Federal rules restrict any use of the information to criminally investigate or prosecute any alcohol or drug abuse patient.[facility] the event this information is protected by the Federal Confidentiality of Alcohol and Drug Abuse Patient Records regulations: The Federal rules restrict any use of the information to criminally investigate or prosecute any alcohol or drug abuse patient.[facility] the event this information is protected by the Federal Confidentiality of Alcohol and Drug Abuse Patient Records regulations: The Federal rules restrict any use of the information to criminally investigate or prosecute any alcohol or drug abuse patient.[facility] CenterIn the event this information is protected by the Federal Confidentiality of Alcohol and Drug Abuse Patient Records regulations: The Federal rules restrict any use of the information to criminally investigate or prosecute any alcohol or drug abuse patient.[facility] CenterIn the event this information is protected by the Federal Confidentiality of Alcohol and Drug Abuse Patient Records regulations: The Federal rules restrict any use of the information to criminally investigate or prosecute any alcohol or drug abuse patient.[facility] CenterIn the event this information is protected by the Federal Confidentiality of Alcohol and Drug Abuse Patient Records regulations: The Federal rules restrict any use of the information to criminally investigate or prosecute any alcohol or drug abuse patient.[facility] CenterIn the event this information is protected by the Federal Confidentiality of Alcohol and Drug Abuse Patient Records regulations: The Federal rules restrict any use of the information to criminally investigate or prosecute any alcohol or drug abuse patient.[facility] CenterIn the event this information is protected by the Federal Confidentiality of Alcohol and Drug Abuse Patient Records regulations: The Federal rules restrict any use of the information to criminally investigate or prosecute any alcohol or drug abuse patient.[facility] CenterIn the event this information is protected by the Federal Confidentiality of Alcohol and Drug Abuse Patient Records regulations: The Federal rules restrict any use of the information to criminally investigate or prosecute any alcohol or drug abuse patient.[facility] CenterIn the event this information is protected by the Federal Confidentiality of Alcohol and Drug Abuse Patient Records regulations: The Federal rules restrict any use of the information to criminally investigate or prosecute any alcohol or drug abuse patient.[facility] CenterIn the event this information is protected by the Federal Confidentiality of Alcohol and Drug Abuse Patient Records regulations: The Federal rules restrict any use of the information to criminally investigate or prosecute any alcohol or drug abuse patient.[facility] CenterIn the event this information is protected by the Federal Confidentiality of Alcohol and Drug Abuse Patient Records regulations: The Federal rules restrict any use of the information to criminally investigate or prosecute any alcohol or drug abuse patient.[facility] CenterIn the event this information is protected by the Federal Confidentiality of Alcohol and Drug Abuse Patient Records regulations: The Federal rules restrict any use of the information to criminally investigate or prosecute any alcohol or drug abuse patient.[facility] CenterIn the event this information is protected by the Federal Confidentiality of Alcohol and Drug Abuse Patient Records regulations: The Federal rules restrict any use of the information to criminally investigate or prosecute any alcohol or drug abuse patient.[facility] CenterIn the event this information is protected by the Federal Confidentiality of Alcohol and Drug Abuse Patient Records regulations: The Federal rules restrict any use of the information to criminally investigate or prosecute any alcohol or drug abuse patient.[facility]In the event this information is protected by the Federal Confidentiality of Alcohol and Drug Abuse Patient Records regulations: The Federal rules restrict any use of the information to criminally investigate or prosecute any alcohol or drug abuse patient.[facility] CenterIn the event this information is protected by the Federal Confidentiality of Alcohol and Drug Abuse Patient Records regulations: The Federal rules restrict any use of the information to criminally investigate or prosecute any alcohol or drug abuse patient.[facility] CenterIn the event this information is protected by the Federal Confidentiality of Alcohol and Drug Abuse Patient Records regulations: The Federal rules restrict any use of the information to criminally investigate or prosecute any alcohol or drug abuse patient.[facility] CenterIn the event this information is protected by the Federal Confidentiality of Alcohol and Drug Abuse Patient Records regulations: The Federal rules restrict any use of the information to criminally investigate or prosecute any alcohol or drug abuse patient.[facility] CenterIn the event this information is protected by the Federal Confidentiality of Alcohol and Drug Abuse Patient Records regulations: The Federal rules restrict any use of the information to criminally investigate or prosecute any alcohol or drug abuse patient.[facility] CenterIn the event this information is protected by the Federal Confidentiality of Alcohol and Drug Abuse Patient Records regulations: The Federal rules restrict any use of the information to criminally investigate or prosecute any alcohol or drug abuse patient.[facility] CenterIn the event this information is protected by the Federal Confidentiality of Alcohol and Drug Abuse Patient Records regulations: The Federal rules restrict any use of the information to criminally investigate or prosecute any alcohol or drug abuse patient.[facility] CenterIn the event this information is protected by the Federal Confidentiality of Alcohol and Drug Abuse Patient Records regulations: The Federal rules restrict any use of the information to criminally investigate or prosecute any alcohol or drug abuse patient.[facility] CenterIn the event this information is protected by the Federal Confidentiality of Alcohol and Drug Abuse Patient Records regulations: The Federal rules restrict any use of the information to criminally investigate or prosecute any alcohol or drug abuse patient.[facility] CenterIn the event this information is protected by the Federal Confidentiality of Alcohol and Drug Abuse Patient Records regulations: The Federal rules restrict any use of the information to criminally investigate or prosecute any alcohol or drug abuse patient.[facility] CenterIn the event this information is protected by the Federal Confidentiality of Alcohol and Drug Abuse Patient Records regulations: The Federal rules restrict any use of the information to criminally investigate or prosecute any alcohol or drug abuse patient.[facility] CenterIn the event this information is protected by the Federal Confidentiality of Alcohol and Drug Abuse Patient Records regulations: The Federal rules restrict any use of the information to criminally investigate or prosecute any alcohol or drug abuse patient.[facility] CenterIn the event this information is protected by the Federal Confidentiality of Alcohol and Drug Abuse Patient Records regulations: The Federal rules restrict any use of the information to criminally investigate or prosecute any alcohol or drug abuse patient.[facility] CenterIn the event this information is protected by the Federal Confidentiality of Alcohol and Drug Abuse Patient Records regulations: The Federal rules restrict any use of the information to criminally investigate or prosecute any alcohol or drug abuse patient.[facility] Reason for Visit (unrecogniz ed section and content) Reason Comments Pain (Elbow Pain) Pt reported elbow pa in rated 10 w/ mvmt, warmth, swelling onset x6 days Reason Onset Date Comments Refill Request 04/07/2022 Reason Comments Flank Pain Reason Comments Urinary Frequency Frequency and left g roin pain x 3 days Reason Comments Results Reason Comments Results, Lab Reason Comments Refill Request Reason Comments Appointment Reason Comments Yearly Exam Reason Comments Consult Elevated PSA Specialty Diagnoses / Procedures Referred By Armen lazar Referred To Contact Urology Diagnoses Elevated PSA Procedures CONSULT TO UROLOGY OFFICE/OUTPATIENT NEW HIGH MDM 60-74 MINUTES Dmitry Coronado APRN.[employer] [address] [place] [address] Referral ID Status Reason Start Date Expiration Date V isits Requested Visits Authorized [id number] Closed PCP Requested Referral 11/30/2022 11/30/2023 1 1 Reason Comments Rash Rash on right should er x 4 years Reason Onset Date Comments Refill Request 07/09/2023 Reason Comments Received Outside Medical Records Reason Comments Cough x1Days Specialty Diagnoses / Procedures Referred By Armen lazar Referred To Contact MR IMAGING Diagnoses Multiple sclerosis (HCC) Procedures MRI BRAIN WO IVCON MRI BRAIN BRAIN STEM W/O CONTRAST MATERIAL Yelena Bronw DO [address] [place] [address] [place] [address] Referral ID Status Reason Start Date Expiration Date V isits Requested Visits Authorized [id number] Closed Auto-Generate d Referral 10/27/2023 10/03/2024 1 1 Reason Comments Follow Up Reason Onset Date Comments Refill Request 12/20/2023 Reason Comments Wellness Reason Comments F/U 1 month Reason Comments Pain Reason Onset Date Comments Refill Request 07/05/2024 Care Teams (unrecognized sec tion and content) Health Plan Specialist Relationship Specialty Start Date End Date Mary Martínez MD [facility] [place] [address] PCP - General Family Practice 09/02/21 Health Plan Specialist Relationship Specialty Start Date End Date Mary Martínez MD [facility] [place] [address] PCP - General Family Practice 09/02/21 Health Plan Specialist Relationship Specialty Start Date End Date Mary Martínez MD [address] [place] [address] PCP - General Family Medicine 09/02/21 Health Plan Specialist Relationship Specialty Start Date End Date Mary Martínez MD [facility] [place] [address] PCP - General Family Medicine 09/02/21 Health Plan Specialist Relationship Specialty Start Date End Date Mayr Martínez MD [facility] [place] [address] PCP - General Family Medicine 09/02/21 Health Plan Specialist Relationship Specialty Start Date End Date Mary Martínez MD [address] [facility] [place] [address] PCP - General Family Medicine 09/02/21 Health Plan Specialist Relationship Specialty Start Date End Date Mary Martínez MD [address] [facility] [place] [address] PCP - General Family Medicine 09/02/21 Health Plan Specialist Relationship Specialty Start Date End Date Mary Martínez MD [address] [facility] [place] [address] PCP - General Family Medicine 09/02/21 Health Plan Specialist Relationship Specialty Start Date End Date Mary Martínez MD [address] [facility] [place] [address] PCP - General Family Medicine 09/02/21 Health Plan Specialist Relationship Specialty Start Date End Date Mary Martínez MD [address] [facility] [place] [address] PCP - General Family Medicine 09/02/21 Health Plan Specialist Relationship Specialty Start Date End Date Mary Martínez MD [address] [facility] [place] [address] PCP - General Family Medicine 09/02/21 Health Plan Specialist Relationship Specialty Start Date End Date Mary Martínez MD [address] [facility] [place] [address] PCP - General Family Medicine 09/02/21 Health Plan Specialist Relationship Specialty Start Date End Date Mary Martínez MD [address] [facility] [place] [address] PCP - General Family Medicine 09/02/21 Health Plan Specialist Relationship Specialty Start Date End Date Mary Martínez MD [address] [facility] [place] [address] PCP - General Family Medicine 09/02/21 Health Plan Specialist Relationship Specialty Start Date End Date Mary Martínez MD [address] [facility] [place] [address] PCP - General Family Medicine 09/02/21 Health Plan Specialist Relationship Specialty Start Date End Date Mary Martínez MD [address] [facility] [place] [address] PCP - General Family Medicine 09/02/21 Health Plan Specialist Relationship Specialty Start Date End Date Mary Martínez MD [address] [facility] [place] [address] PCP - General Family Medicine 09/02/21 Health Plan Specialist Relationship Specialty Start Date End Date Mary Martínez MD [address] [facility] [place] [address] PCP - General Family Medicine 09/02/21 Health Plan Specialist Relationship Specialty Start Date End Date Mary Martínez MD [address] [facility] [place] [address] PCP - General Family Medicine 09/02/21 Health Plan Specialist Relationship Specialty Start Date End Date Mary Martínez MD [address] [facility] [place] [address] PCP - General Family Medicine 09/02/21 Health Plan Specialist Relationship Specialty Start Date End Date Mary Martínez MD [address] [facility] [place] [address] PCP - General Family Medicine 09/02/21 Health Plan Specialist Relationship Specialty Start Date End Date Mary Martínez MD [address] [place] [address] PCP - General [facility] Medicine 09/02/21 Health Plan Specialist Relationship Specialty Start Date End Date Mary Martínez MD [address] [place], [place] [address] PCP - General [facility] 09/02/21 Health Plan Specialist Relationship Specialty Start Date End Date Mary Martínez MD [address] [place], [place] [address] PCP - General [facility] 09/02/21 Health Plan Specialist Relationship Specialty Start Date End Date Nick Lemons III, MD PCP - General [facility] Medicine 12/07/12 09/01/21 FOR RECORDS PERTAINING TO PATIENTS WHO ARE OR HAVE BEEN ENROLLED IN A CHEMICAL DEPENDENCY/SUBSTANCEABUSE PROGRAM, SOME INFORMATION MAY BE OMITTED. This clinical summary was aggregated from multiple sources. Caution should be exercised in using it in the provision of clinical care. This summary normalizes information from multiple sources, and as a consequence, information in this document may materially change the coding, format and clinical context of patient data. In addition, data may be omitted in some cases. CLINICAL DECISIONS SHOULD BE BASED ON THE PRIMARY CLINICAL RECORDS. [facility] [employer] [facility]. provides no warranty or guarantee of the accuracy or completeness of information in this document.
[2024-07-26 07:23] LABS: ALB/GLOB Ratio 1.5 RATIO (0.9-2.4); AST(SGOT) 10 U/L (15-37); Alanine Aminotransfer ALT/SGPT 28 U/L (16-61); Alkaline Phosphatase 54 U/L (45-117); Anion Gap 3 (5-15); BUN 17 mg/dL (7-18); BUN/Creat Ratio 16.3 RATIO (10-20); Calcium,Total 9.2 mg/dL (8.5-10.1); Chloride 107 mmol/L (98-107); Cholesterol 160 mg/dL (200); Creatinine, Serum 1.04 mg/dL (0.70-1.30); EST Glomerular Filtration Rate 78 mL/min (>60); Est Glom Filt Rate - Afr Amer 94 mL/min (>60); Globulin 2.7 g/dL (2.2-4.2); Glucose 94 mg/dL (74-106); High Density Lipoprotein 42 mg/dL; Potassium 3.5 mmol/L (3.5-5.1); Protein, Total 6.7 g/dL (6.4-8.2); Sodium Level 139 mmol/L (136-145); Triglycerides 150 mg/dL; Very Low Density Lipoprotein 30 mg/dL (5-40)
== END | disposition home or self-care (01) ==
LOC: LAB 05:59
PROVIDERS: PCP Family Medicine; Referring Provider Internal Medicine Cardiovascular Disease; Visit Provider Internal Medicine Cardiovascular Disease
DX: I25.10 Atherosclerotic heart disease of native coronary artery without angina pectoris (principal); I10 Essential (primary) hypertension; E78.5 Hyperlipidemia, unspecified; R00.2 Palpitations
CPT/HCPCS: 36415; 80053; 80061

== ENCOUNTER → 2025-09-06 | Outpatient (CLI) | payer BC, SELFPAY ==
--- NOTE | 2025-09-06 12:47 | ECHOD_ITS ---
Reason For Study Reason For Study: Evaluate EF Procedure This was a 2D Doppler, Color Flow transthoracic echocardiogram. Exam performed in department. Left Ventricle Normal LV size. The left ventricular ejection fraction is 60 %. Normal diastololic function. No regional wall motion abnormalities noted. Right Ventricle Normal RV size. Normal systolic function. Atria The left atrium is mildly enlarged. Normal right atrium. Mitral Valve Normal mitral valve. Mild (1+) mitral valve insufficiency. Tricuspid Valve Normal tricuspid valve. Trivial tricuspid valve insufficiency. Pulmonary artery systolic pressure is 24 mmHg. Aortic Valve Trisinus/trileaflet aortic valve. Pulmonic Valve Normal pulmonic valve. Trivial pulmonic valve insufficiency. Great Vessels Normal aortic root. Pericardium/Pleural No pericardial effusion. MMode/2D Measurements & Calculations LVIDd: 5.6 cm IVSd: 0.76 cm Ao root diam: 3.4 cm LVIDs: 3.8 cm LVPWd: 0.84 cm RVDd: 3.9 cm FS: 31.7 % LAV(MOD-bp): 46.4 ml LVAd ap4: 32.4 cm2 SV(MOD-sp4): 61.0 ml LAV(MOD-bp) Indexed: 22.3 ml/m2 LVLd ap4: 8.3 cm SI(MOD-sp4): 29.3 ml/m2 LAV(MOD-sp2): 39.9 ml EDV(MOD-sp4): 102.9 ml LAV(MOD-sp4): 45.1 ml EDV(sp4-el): 107.0 ml LVAs ap4: 18.7 cm2 LVLs ap4: 7.3 cm ESV(MOD-sp4): 41.8 ml ESV(sp4-el): 40.7 ml EF(MOD-sp4): 59.3 % EF(sp4-el): 62.0 % SV(sp4-el): 66.3 ml Ao sinus diam: 3.[address] Junction: 2.5 cm LA dimension(2D): 4.4 cm LA A4 area: 18.6 cm2 RA A4 area: 17.5 cm2 TAPSE: 2.4 cm Time Measurements MV dec time: 0.19 sec Doppler Measurements & Calculations MV E max mathieu: 102.1 cm/sec Lat Peak E' Mathieu: 13.1 cm/sec Med Peak E' Mathieu: 13.4 cm/sec MV A max mathieu: 56.6 cm/sec E/E' lat: 7.8 E/E' med: 7.6 MV E/A: 1.8 MV V2 max: 121.7 cm/sec MV P1/2t max mathieu: 121.7 cm/sec Ao V2 max: 126.2 cm/sec MV max P.9 mmHg MV P1/2t: 73.9 msec Ao max P.4 mmHg MV V2 mean: 58.7 cm/sec MV dec slope: 482.0 cm/sec2 Ao V2 mean: 88.2 cm/sec MV mean P.7 mmHg Ao mean P.5 mmHg MV V2 VTI: 38.6 cm MVA(P1/2t): 3.0 cm2 Ao V2 VTI: 28.8 cm AV (velocity ratio): 0.87 LV V1 max: 117.0 cm/sec MR max mathieu: 498.7 cm/sec PA V2 max: 109.7 cm/sec LV V1 max P.5 mmHg MR max P.5 mmHg PA V2 mean: 79.7 cm/sec LV V1 mean P.9 mmHg LV V1 mean: 79.5 cm/sec LV V1 VTI: 24.9 cm TR max mathieu: 202.5 cm/sec TR max P.4 mmHg ECHO/Echo Complete Interpretation Summary The left ventricular ejection fraction is 60 %. Normal diastololic function. Mild (1+) mitral valve insufficiency. The left atrium is mildly enlarged. Ordering Physician: Sj Guillaume Referring Physician: Sj Guillaume Performed By: Checo Lees RCS
== END | disposition home or self-care (01) ==
LOC: CVS 12:45
PROVIDERS: PCP Family Medicine; Referring Provider Nurse Practitioner Family; Visit Provider Nurse Practitioner Family
DX: I48.0 Paroxysmal atrial fibrillation (principal); I10 Essential (primary) hypertension
CPT/HCPCS: 93306